=== PATIENT | female | born 1960 | race Caucasian/White ===

== ENCOUNTER 2017-02-21 13:24 | Inpatient (IN) | payer BC, MEDICARE ==
[~2017-02-21] VITALS: Ht 165.1 cm; Wt 91.3 kg
[~2017-02-21 13:24] MED LIST: ACET500T33 PO; ALPR0.5T PO; BUDE0.25 IH; BUDE3CAP15 PO; BUPR150T8 PO; BUPR300T3 PO; CLON0.5T3 PO; CLON1TAB3 PO; COLE1TAB2 PO; FAMO-63 PO; FERR325T58 PO; FLUO20CA8 PO; FURO-69 PO; GABA600T2 PO; LAMO25TA31 PO; LOPE2TAB27 PO; METO25TA9 PO; MIRT15TA3 PO; OMEP40CA5 PO; ONDA8TAB9 PO; POTA20TA12 PO; PRED20TA PO; SPIR25TA3 PO; SUCR1TAB29 PO; ZOLP10TA PO; ZOLP5TAB5 PO; [UNRECOGNIZED DRUG - CODE] PO
[2017-02-21 13:45] LABS: BASO % 0 % (0-3); EOS % 0 % (0-3); HEMOGLOBIN 14.7 g/dL (12.0-15.5); LYMPH # 0.9 x10^3/uL (1.0-4.8); LYMPH % 12 % (24-48); MEAN CORPUSCULAR HEMOGLOBIN 32 pg (25-35); MEAN CORPUSCULAR HGB CONC 35 g/dL (31-37); MEAN CORPUSCULAR VOLUME 92 fL (79-100); MONO % 4 % (0-9); NEUT % 83 % (31-73); PLATELET COUNT 236 x10^3/uL (140-400); RED BLOOD COUNT 4.57 x10^6/uL (3.50-5.40); RED CELL DISTRIBUTION WIDTH 12.9 % (11.5-14.5); WHITE BLOOD COUNT 7.4 x10^3/uL (4.0-11.0)
[2017-02-21] MEDS ORDERED: METOCLOPRAMIDE HCL 10 MG/2 ML VIAL. IV ONE (13:45)
--- NOTE | 2017-02-21 13:50 | EKG ---
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
[2017-02-21 13:57] LABS: CALCIUM 9.3 mg/dL (8.5-10.1); CREATININE 0.7 mg/dL (0.6-1.0); GFR 86.2; POTASSIUM 3.5 mmol/L (3.5-5.1)
[2017-02-21] MEDS ORDERED: MORPHINE SULFATE 4 MG/ML DISP.SYRIN. IV/SQ PRN (14:00)
[2017-02-21 14:02] LABS: ALBUMIN 4.2 g/dL (3.4-5.0); ALBUMIN/GLOBULIN RATIO 1.3 (1.0-1.7); TOTAL BILIRUBIN 0.2 mg/dL (0.2-1.0); TOTAL PROTEIN 7.4 g/dL (6.4-8.2)
[2017-02-21] MEDS ORDERED: IOHEXOL 300 MG/ML 75 ML VIAL IV ONE (14:15)
[2017-02-21] MEDS ORDERED: CONTRAST GIVEN MC PRN (14:15)
[2017-02-21] MEDS ORDERED: CYCL10TA2 PO (14:41)
[2017-02-21] MEDS ORDERED: BUDE10.22 IH (14:41)
[2017-02-21] MEDS ORDERED: LORA10TA68 PO (14:41)
[2017-02-21] MEDS ORDERED: CYCL15CA14 PO (14:42)
[2017-02-21] MEDS ORDERED: HYDR-971 PO (14:42)
[2017-02-21] MEDS ORDERED: LAMO100T5 PO (14:43)
[2017-02-21] MEDS ORDERED: FURO20TA3 PO (14:43)
[2017-02-21] MEDS ORDERED: METR250T PO (14:44)
[2017-02-21] MEDS ORDERED: GABA-586 PO (14:44)
[2017-02-21] MEDS ORDERED: METO25TA4 PO (14:44)
[2017-02-21] MEDS ORDERED: MELO-150 PO (14:44)
[2017-02-21] MEDS ORDERED: FLUO10CA13 PO (14:45)
[2017-02-21] MEDS ORDERED: MIRT15TA PO (14:45)
[2017-02-21 14:49] LABS: BILIRUBIN,URINE NEGATIVE (NEG); GLUCOSE,URINE NEGATIVE (NEG); NITRITE,URINE POSITIVE (NEG); PROTEIN,URINE NEGATIVE (NEG-TRACE); UROBILINOGEN,URINE 0.2 mg/dL (0.2 mg/dL)
[2017-02-21 14:59] LABS: BACTERIA,URINE MANY /HPF (0-FEW); SQUAMOUS EPITHELIAL CELL,UR FEW /LPF
--- NOTE | 2017-02-21 15:29 | RAD ---
Indication abdominal pain. Nausea vomiting diarrhea. Axial images of the abdomen and pelvis were obtained. 75 cc of Omnipaque 300 was administered intravenously. No oral contrast was administered. Note is made of a previous examination 11/16/2015. The lung bases are clear. There is a ventral abdominal wall hernia containing only fat and appearing uncomplicated. The liver and spleen appear unremarkable. There is a small hiatus hernia. Clips are noted in the gallbladder fossa. No pancreatic abnormality is seen. The adrenal glands and kidneys appear unremarkable. An acute finding within the abdomen is not seen. Occasional small diverticula are seen associated with the large bowel. Active inflammation is not seen. There is slight irregularity of the sigmoid colon. Mild inflammation at this level is not excluded. Similarly there is possible slight irregularity involving the right colon. Mild colitis is not entirely excluded and clinical correlation as to this possibility advised. Posttraumatic changes involving the right hemipelvis are noted. 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 There is mild anterior spondylolisthesis at L5-S1. IMPRESSION: Possible mild inflammatory changes involving the sigmoid colon and right colon. The finding is not certain. An additional acute finding is not suggested in the abdomen or pelvis.
[2017-02-21] MEDS ORDERED: ACETAMINOPHEN 325 MG TABLET. PO PRN ×2 (16:45)
[2017-02-21] MEDS ORDERED: MORPHINE SULFATE 4 MG/ML DISP.SYRIN. IV PRN (16:45)
[2017-02-21] MEDS ORDERED: hydrALAZINE 20 MG/ML VIAL. IVP PRN (16:45)
[2017-02-21] MEDS ORDERED: ONDANSETRON PF 4 MG/2 ML VIAL. IV PRN ×2 (16:45)
--- NOTE | 2017-02-21 16:53 | PDOC1 ---
History and Physical Date of Admission Date of Admission 02/21/17 Identification/Chief Complaint Chief Complaint n/v, diarrhea Problems: Source Source: Patient History of Present Illness History of Present Illness 56yo F, who has h/o copd, htn ,but not seen any PCP or on any meds for at least a year, comes for N/V abd pain for 2 days. She denies eating wrong food, no recent infection, or traveling. She vomited several times daily x2 ds yellow liquid, no abd pain.She has very loose yellow diarrhea many times a day x2 too. She denies fever, + chills, nocough, sob. She denies dysuria, frequency or urgency. CT showed possible mild colitis Past Medical History Cardiovascular: HTN CENTRAL NERVOUS SYSTEM: Seizure GI: GI bleed, Hemorrhoids, Other Heme/Onc: Anemia NOS, Iron deficiency Anemia, Other Hepatobiliary: No pertinent hx Psych: Anxiety, Depression Renal/: No pertinent hx Endocrine: No pertinent hx Past Surgical History Past Surgical History gastric sleeve Past Surgical History: Pacemaker, Cholecystectomy, Mastectomy, Other Family History Family History: Hypertension Social History Smoke: Quit ALCOHOL: rare Drugs: None Current Medications Current Medications Current Medications Medications (Trade) Dose Ordered Sig/Akil Start Time Stop Time Status Last Admin Dose Admin Ceftriaxone Sodium 1 gm/ Sodium Chloride 50 ml @ 100 mls/hr Q24H 02/22/17 16:00 Ceftriaxone Sodium 50 ml @ 100 mls/hr 1X ONCE 02/21/17 16:00 02/21/17 16:29 DC Info (Do NOT chart on this entry -- for MONITORING) 1 each PRN DAILY PRN 02/21/17 14:15 02/23/17 14:14 Iohexol (Omnipaque 300 Mg/ml) 75 ml 1X ONCE 02/21/17 14:15 02/21/17 14:16 DC 02/21/17 14:45 75 ML Metoclopramide HCl (Reglan) 10 mg 1X ONCE 02/21/17 13:45 02/21/17 13:46 DC 02/21/17 13:41 10 MG Metronidazole 100 ml @ 100 mls/hr 1X ONCE 02/21/17 16:15 02/21/17 17:14 Cancel Morphine Sulfate 4 mg PRN Q15MIN PRN 02/21/17 14:00 02/22/17 13:59 Allergies Allergies Allergies Coded Allergies Type Severity Reaction Last Updated Verified Penicillins Allergy Intermediate 11/26/15 Yes guaifenesin Allergy Intermediate 11/26/15 Yes meperidine Allergy Intermediate 11/26/15 Yes ROS Review of System CONSTITUTIONAL: No fever or chills EYES: No recent changes SKIN: No rash or itching CARDIOVASCULAR: No chest pain, syncope, palpitations, or edema RESPIRATORY: No SOB or cough GASTROINTESTINAL: No nausea, vomiting or abdominal pain NEUROLOGICAL: No headaches or weakness ENDOCRINE: No cold or heat intolerance GENITOURINARY: No urgency or frequency of urination MUSCULOSKELETAL: No back pain or joint pain LYMPHATICS: No enlarged lymph nodes PSYCHIATRIC: No anxiety or depression Physical Exam Physical Exam GEN.: No apparent distress. Alert and oriented. HEENT: Head is normocephalic, atraumatic NECK: Supple. LUNGS: Clear to auscultation. HEART: RRR, S1, S2 present. Peripheral pulses intact ABDOMEN: Soft, nontender. Positive bowel sounds. EXTREMITIES: Without any cyanosis. NEUROLOGIC: Normal speech, normal tone PSYCHIATRIC: Normal affect, normal mood. SKIN: No ulcerations Vitals Vitals Vital Signs Date Time Temp Pulse Resp B/P (MAP) Pulse Ox O2 Delivery O2 Flow Rate FiO2 02/21/17 13:27 97.7 65 18 154/111 (125) 99 Room Air 97.7 Labs Labs Laboratory Tests Test 02/21/17 13:30 02/21/17 14:35 White Blood Count 7.4 x10^3/uL (4.0-11.0) Red Blood Count 4.57 x10^6/uL (3.50-5.40) Hemoglobin 14.7 g/dL (12.0-15.5) Hematocrit 42.0 % (36.0-47.0) Mean Corpuscular Volume 92 fL (79-100) Mean Corpuscular Hemoglobin 32 pg (25-35) Mean Corpuscular Hemoglobin Concent 35 g/dL (31-37) Red Cell Distribution Width 12.9 % (11.5-14.5) Platelet Count 236 x10^3/uL (140-400) Neutrophils (%) (Auto) 83 % (31-73) Lymphocytes (%) (Auto) 12 % (24-48) Monocytes (%) (Auto) 4 % (0-9) Eosinophils (%) (Auto) 0 % (0-3) Basophils (%) (Auto) 0 % (0-3) Neutrophils # (Auto) 6.2 x10^3uL (1.8-7.7) Lymphocytes # (Auto) 0.9 x10^3/uL (1.0-4.8) Monocytes # (Auto) 0.3 x10^3/uL (0.0-1.1) Eosinophils # (Auto) 0.0 x10^3/uL (0.0-0.7) Basophils # (Auto) 0.0 x10^3/uL (0.0-0.2) Sodium Level 145 mmol/L (136-145) Potassium Level 3.5 mmol/L (3.5-5.1) Chloride Level 105 mmol/L (98-107) Carbon Dioxide Level 20 mmol/L (21-32) Anion Gap 20 (6-14) Blood Urea Nitrogen 13 mg/dL (7-20) Creatinine 0.7 mg/dL (0.6-1.0) Estimated GFR (Cockcroft-Gault) 86.2 BUN/Creatinine Ratio 19 (6-20) Glucose Level 138 mg/dL (70-99) Calcium Level 9.3 mg/dL (8.5-10.1) Total Bilirubin 0.2 mg/dL (0.2-1.0) Aspartate Amino Transf (AST/SGOT) 23 U/L (15-37) Alanine Aminotransferase (ALT/SGPT) 23 U/L (14-59) Alkaline Phosphatase 96 U/L (46-116) Troponin I Quantitative < 0.017 ng/mL (0.000-0.055) Total Protein 7.4 g/dL (6.4-8.2) Albumin 4.2 g/dL (3.4-5.0) Albumin/Globulin Ratio 1.3 (1.0-1.7) Lipase 109 U/L (73-393) Urine Collection Type Unknown Urine Color Yellow Urine Clarity Clear Urine pH 6.0 Urine Specific [place] 1.025 Urine Protein Negative mg/dL (NEG-TRACE) Urine Glucose (UA) Negative mg/dL (NEG) Urine Ketones (Stick) 15 mg/dL (NEG) Urine Blood Small (NEG) Urine Nitrite Positive (NEG) Urine Bilirubin Negative (NEG) Urine Urobilinogen Dipstick 0.2 mg/dL (0.2 mg/dL) Urine Leukocyte Esterase Small (NEG) Urine RBC 1-2 /HPF (0-2) Urine WBC 5-10 /HPF (0-4) Urine Squamous Epithelial Cells Few /LPF Urine Bacteria Many /HPF (0-FEW) Urine Mucus Slight /LPF Laboratory Tests Test 02/21/17 13:30 02/21/17 14:35 White Blood Count 7.4 x10^3/uL (4.0-11.0) Red Blood Count 4.57 x10^6/uL (3.50-5.40) Hemoglobin 14.7 g/dL (12.0-15.5) Hematocrit 42.0 % (36.0-47.0) Mean Corpuscular Volume 92 fL (79-100) Mean Corpuscular Hemoglobin 32 pg (25-35) Mean Corpuscular Hemoglobin Concent 35 g/dL (31-37) Red Cell Distribution Width 12.9 % (11.5-14.5) Platelet Count 236 x10^3/uL (140-400) Neutrophils (%) (Auto) 83 % (31-73) Lymphocytes (%) (Auto) 12 % (24-48) Monocytes (%) (Auto) 4 % (0-9) Eosinophils (%) (Auto) 0 % (0-3) Basophils (%) (Auto) 0 % (0-3) Neutrophils # (Auto) 6.2 x10^3uL (1.8-7.7) Lymphocytes # (Auto) 0.9 x10^3/uL (1.0-4.8) Monocytes # (Auto) 0.3 x10^3/uL (0.0-1.1) Eosinophils # (Auto) 0.0 x10^3/uL (0.0-0.7) Basophils # (Auto) 0.0 x10^3/uL (0.0-0.2) Sodium Level 145 mmol/L (136-145) Potassium Level 3.5 mmol/L (3.5-5.1) Chloride Level 105 mmol/L (98-107) Carbon Dioxide Level 20 mmol/L (21-32) Anion Gap 20 (6-14) Blood Urea Nitrogen 13 mg/dL (7-20) Creatinine 0.7 mg/dL (0.6-1.0) Estimated GFR (Cockcroft-Gault) 86.2 BUN/Creatinine Ratio 19 (6-20) Glucose Level 138 mg/dL (70-99) Calcium Level 9.3 mg/dL (8.5-10.1) Total Bilirubin 0.2 mg/dL (0.2-1.0) Aspartate Amino Transf (AST/SGOT) 23 U/L (15-37) Alanine Aminotransferase (ALT/SGPT) 23 U/L (14-59) Alkaline Phosphatase 96 U/L (46-116) Troponin I Quantitative < 0.017 ng/mL (0.000-0.055) Total Protein 7.4 g/dL (6.4-8.2) Albumin 4.2 g/dL (3.4-5.0) Albumin/Globulin Ratio 1.3 (1.0-1.7) Lipase 109 U/L (73-393) Urine Collection Type Unknown Urine Color Yellow Urine Clarity Clear Urine pH 6.0 Urine Specific [place] 1.025 Urine Protein Negative mg/dL (NEG-TRACE) Urine Glucose (UA) Negative mg/dL (NEG) Urine Ketones (Stick) 15 mg/dL (NEG) Urine Blood Small (NEG) Urine Nitrite Positive (NEG) Urine Bilirubin Negative (NEG) Urine Urobilinogen Dipstick 0.2 mg/dL (0.2 mg/dL) Urine Leukocyte Esterase Small (NEG) Urine RBC 1-2 /HPF (0-2) Urine WBC 5-10 /HPF (0-4) Urine Squamous Epithelial Cells Few /LPF Urine Bacteria Many /HPF (0-FEW) Urine Mucus Slight /LPF VTE Prophylaxis Ordered VTE Prophylaxis Devices: Yes VTE Pharmacological Prophylaxi: Yes Assessment/Plan Assessment/Plan 1. N/V, diarrhea, 2/2 gastroenteritis likely, likely 2/2 viral infection 2. HTN urgency 3. h/o gastric sleeve sx 4. h/o GIB 5. morbid obesity plan: gi consult doubt pt need abx, consider dc soon clear liquid ivf check cdiff may add po meds for htn labs tmr dvt ppx, gi ppx LEENA FRANCISCO MD February 21, 2017 16:53
[2017-02-21] MEDS: VANCOMYCIN 250 MG/5 ML ORAL SOLUTION. PO SCH ×3 (17:00→21:11)
[2017-02-21] MEDS ORDERED: IV NORMAL SALINE 1000ML BAG 1,000 ML IV ONE (17:00)
[2017-02-21] MEDS ORDERED: ALBUTEROL SULFATE 2.5 MG/3 ML NEBU. NEB PRN (17:00)
[2017-02-21] MEDS: IV NORMAL SALINE 1000ML BAG 1,000 ML IV SCH ×2 (17:00→18:32)
[2017-02-21] MEDS ORDERED: traMADol 50 MG TABLET PO PRN (17:00)
--- NOTE | 2017-02-21 17:39 | ED.ADGEN ---
Past Medical History Past Medical History: Anemia, Arthritis, CHF, Hypertension, Seizure Additional Past Medical Histor: diarrhea; "Carcinoma of back" Past Surgical History: Cholecystectomy, Other Additional Past Surgical Histo: gastric sleeve sx Alcohol Use: None Drug Use: None Adult General Chief Complaint Chief Complaint: NAUSEA/VOMITING/DIARRHA HPI HPI Patient is a 56 year old and, history of CHF, hypertension, seizure disorder, status post gastric bypass surgery with multiple complications, who presents emergency department complaining of abdominal pain, nausea, vomiting, and diarrhea. Patient initially denied diarrhea, when she arrived via EMS, was complaining mainly of vomiting, request several doses of antiemetics to stymied symptoms. Patient denies any fevers, any chills, denies any injuries, any weakness emesis or tingling. States pain is located throughout her abdomen, initially stated that her last bowel was 3 days ago and was normal. However on requestioning she states she is experiencing diarrhea. Review of Systems Review of Systems Constitutional: Denies fever or chills. [] Eyes: Denies change in visual acuity. [] HENT: Denies nasal congestion or sore throat. [] Respiratory: Denies cough or shortness of breath. [] Cardiovascular: Denies chest pain or edema. [] GI: Abdominal pain is diffuse, cramping, associated nausea, vomiting, diarrhea. No bloody stools or bloody emesis. : Denies dysuria. [] Musculoskeletal: Denies back pain or joint pain. [] Integument: Denies rash. [] Neurologic: Denies headache, focal weakness or sensory changes. [] Endocrine: Denies polyuria or polydipsia. [] Lymphatic: Denies swollen glands. [] Psychiatric: Denies depression or anxiety. [] Current Medications Current Medications Current Medications Medications (Trade) Dose Ordered Sig/Akil Start Time Stop Time Status Last Admin Dose Admin Info (Do NOT chart on this entry -- for MONITORING) 1 each PRN DAILY PRN 02/21/17 14:15 02/23/17 14:14 Iohexol (Omnipaque 300 Mg/ml) 75 ml 1X ONCE 02/21/17 14:15 02/21/17 14:16 DC 02/21/17 14:45 75 ML Metoclopramide HCl (Reglan) 10 mg 1X ONCE 02/21/17 13:45 02/21/17 13:46 DC 02/21/17 13:41 10 MG Morphine Sulfate 4 mg PRN Q15MIN PRN 02/21/17 14:00 02/22/17 13:59 Allergies Allergies Allergies Coded Allergies Type Severity Reaction Last Updated Verified Penicillins Allergy Intermediate 11/26/15 Yes guaifenesin Allergy Intermediate 11/26/15 Yes meperidine Allergy Intermediate 11/26/15 Yes Physical Exam Physical Exam Constitutional: Well developed, well nourished, acutely uncomfortable, chronically ill in appearance. HENT: Normocephalic, atraumatic, bilateral external ears normal, oropharynx moist, no oral exudates, nose normal. [] Eyes: PERRLA, EOMI, conjunctiva normal, no discharge. [] Neck: Normal range of motion, no tenderness, supple, no stridor. [] Cardiovascular:Heart rate regular rhythm, no murmur , S1, S2, rubs or gallops. [ ] Lungs & Thorax: Bilateral breath sounds clear to auscultation , no wheezing, rhonchi, rales. No chest or crepitus or tenderness. [] Abdomen: Bowel sounds hyperactive, soft, tenderness to palpation, throughout the mid abdomen, no rebound or rigidity, no guarding, no masses, no pulsatile masses. [] Skin: Warm, dry, no erythema, no rash. [] Back: No tenderness, no CVA tenderness. [] Extremities: No tenderness, no cyanosis, no clubbing, ROM intact, no edema. [] Neurologic: Alert and oriented X 3, normal motor function, normal sensory function, no focal deficits noted. [] Psychologic: Affect normal, judgement normal, mood normal. [] Current Patient Data Vital Signs Vital Signs Date Time Temp Pulse Resp B/P (MAP) Pulse Ox O2 Delivery O2 Flow Rate FiO2 02/21/17 15:00 70 18 132/71 (91) 100 Room Air 02/21/17 13:27 97.7 97.7 Lab Values Laboratory Tests Test 02/21/17 13:30 02/21/17 14:35 White Blood Count 7.4 x10^3/uL (4.0-11.0) Red Blood Count 4.57 x10^6/uL (3.50-5.40) Hemoglobin 14.7 g/dL (12.0-15.5) Hematocrit 42.0 % (36.0-47.0) Mean Corpuscular Volume 92 fL (79-100) Mean Corpuscular Hemoglobin 32 pg (25-35) Mean Corpuscular Hemoglobin Concent 35 g/dL (31-37) Red Cell Distribution Width 12.9 % (11.5-14.5) Platelet Count 236 x10^3/uL (140-400) Neutrophils (%) (Auto) 83 % (31-73) H Lymphocytes (%) (Auto) 12 % (24-48) L Monocytes (%) (Auto) 4 % (0-9) Eosinophils (%) (Auto) 0 % (0-3) Basophils (%) (Auto) 0 % (0-3) Neutrophils # (Auto) 6.2 x10^3uL (1.8-7.7) Lymphocytes # (Auto) 0.9 x10^3/uL (1.0-4.8) L Monocytes # (Auto) 0.3 x10^3/uL (0.0-1.1) Eosinophils # (Auto) 0.0 x10^3/uL (0.0-0.7) Basophils # (Auto) 0.0 x10^3/uL (0.0-0.2) Sodium Level 145 mmol/L (136-145) Potassium Level 3.5 mmol/L (3.5-5.1) Chloride Level 105 mmol/L (98-107) Carbon Dioxide Level 20 mmol/L (21-32) L Anion Gap 20 (6-14) H Blood Urea Nitrogen 13 mg/dL (7-20) Creatinine 0.7 mg/dL (0.6-1.0) Estimated GFR (Cockcroft-Gault) 86.2 BUN/Creatinine Ratio 19 (6-20) Glucose Level 138 mg/dL (70-99) H Calcium Level 9.3 mg/dL (8.5-10.1) Total Bilirubin 0.2 mg/dL (0.2-1.0) Aspartate Amino Transferase (AST) 23 U/L (15-37) Alanine Aminotransferase (ALT) 23 U/L (14-59) Alkaline Phosphatase 96 U/L (46-116) Troponin I Quantitative < 0.017 ng/mL (0.000-0.055) Total Protein 7.4 g/dL (6.4-8.2) Albumin 4.2 g/dL (3.4-5.0) Albumin/Globulin Ratio 1.3 (1.0-1.7) Lipase 109 U/L (73-393) Urine Collection Type Unknown Urine Color Yellow Urine Clarity Clear Urine pH 6.0 Urine Specific [place] 1.025 Urine Protein Negative mg/dL (NEG-TRACE) Urine Glucose (UA) Negative mg/dL (NEG) Urine Ketones (Stick) 15 mg/dL (NEG) Urine Blood Small (NEG) Urine Nitrite Positive (NEG) Urine Bilirubin Negative (NEG) Urine Urobilinogen Dipstick 0.2 mg/dL (0.2 mg/dL) Urine Leukocyte Esterase Small (NEG) Urine RBC 1-2 /HPF (0-2) Urine WBC 5-10 /HPF (0-4) Urine Squamous Epithelial Cells Few /LPF Urine Bacteria Many /HPF (0-FEW) Urine Mucus Slight /LPF Laboratory Tests 02/21/17 13:30 Laboratory Tests 02/21/17 13:30 EKG EKG EC: Rhythm is paced, 81 beats minute, QTC of 499, QRS of 170, limited interpretation secondary to paced rhythm, no ST elevations or depressions, does not meet STEMI criteria. As interpreted by me. [] Radiology/Procedures Radiology/Procedures [][facility] [address] [place], [place] [id number] IMAGING REPORT Signed PATIENT: WILY CALDERON ACCOUNT: [id number] : 1960 LOCATION: ER AGE: 56 SEX: F EXAM STATUS: REG ER ORD. PHYSICIAN: MINA FRIEND DO REASON: abd pain/n/v/d PROCEDURE: CT ABD PELV W/ IV CONTRST ONLY Indication abdominal pain. Nausea vomiting diarrhea. Axial images of the abdomen and pelvis were obtained. 75 cc of Omnipaque 300 was administered intravenously. No oral contrast was administered. Note is made of a previous examination 11/16/2015. The lung bases are clear. There is a ventral abdominal wall hernia containing only fat and appearing uncomplicated. The liver and spleen appear unremarkable. There is a small hiatus hernia. Clips are noted in the gallbladder fossa. No pancreatic abnormality is seen. The adrenal glands and kidneys appear unremarkable. An acute finding within the abdomen is not seen. Occasional small diverticula are seen associated with the large bowel. Active inflammation is not seen. There is slight irregularity of the sigmoid colon. Mild inflammation at this level is not excluded. Similarly there is possible slight irregularity involving the right colon. Mild colitis is not entirely excluded and clinical correlation as to this possibility advised. Posttraumatic changes involving the right hemipelvis are noted. 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 There is mild anterior spondylolisthesis at L5-S1. IMPRESSION: Possible mild inflammatory changes involving the sigmoid colon and right colon. The finding is not certain. An additional acute finding is not suggested in the abdomen or pelvis. DICTATED and SIGNED BY: PACO ZAYAS MD DATE: 02/21/17 1517 CC: MINA FRIEND DO; MEERA IZAGUIRRE MD ~ Course & Med Decision Making Course & Med Decision Making Pertinent Labs and Imaging studies reviewed. (See chart for details) As stated patient initially denied diarrhea, and any history of antibiotic use or C. difficile, however additional information was obtained from Dr. 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 difficile colitis. Therefore precautions were placed, patient noted to have evidence of colitis on CT, along with urinary tract infection, was initiated on ceftriaxone, dried is all, and oral vancomycin, consultation was placed for both Dr. Zapata of GI, and Dr. Turner of infectious disease for management. Findings as above discussed with Dr. Lindsey of internal medicine, patient accepted to her service as a full admission to the medical telemetry floor with consultation and management as stated, bridge orders entered per discussion. Patient resting comfortably, with resolution of her nausea and improved pain management, awaiting transfer to the floor. Dragon Disclaimer Dragon Disclaimer This electronic medical record was generated, in whole or in part, using a voice recognition dictation system. Departure Impression: Primary Impression: Colitis Additional Impressions: Abdominal pain UTI (urinary tract infection) Diarrhea Disposition: ADMITTED INPATIENT Admitting Physician: Cata Lindsey Condition: IMPROVED Problem Qualifiers MINA FRIEND DO February 21, 2017 17:39
[2017-02-21 19:00] VITALS: BP 139/70
--- NOTE | 2017-02-21 19:29 | ACF ---
Admission Forms Criteria GASTROENTERITIS Clinical Indications for Admission to Inpatient Care (Place 'X' for any and all applicable criteria): Admission is indicated for ANY ONE of the following (1)(2)(3)(4)(5)(6): [X]I. Inpatient admission required rather than observation care (Also use Gastroenteritis: Observation Care as appropriate) because of ANY ONE of the following: [X]a) Vomiting that is severe or persistent [ ]b) Dehydration that is severe or persistent [ ]c) Hemodynamic instability that is severe or persistent [ ]d) Signs of intestinal obstruction or peritonitis [A] [ ]e) Hemolytic uremic syndrome is diagnosed. [ ]f) Absent bowel sounds with complete ileus (2) [ ]g) IV fluid to replace significant ongoing losses (greater than 3 L/m2 per day) [ ]h) Parenteral nutrition regimen that must be implemented on inpatient basis [ ]i) Other condition, treatment or monitoring requiring inpatient admission [ ]II. Suspected severe infection (eg, presence of high fever, severe or bloody diarrhea)(7)(8) [ ]III. Severe abdominal tenderness [ ]IV. Toxic megacolon Extended stay beyond goal length of stay may be needed for(4)(5)(6)(18) [ ]a) Persistent vital sign changes, severe electrolyte imbalance, or ongoing fluid losses that require continued hospitalization [ ]b) Other diagnosed cause for gastrointestinal symptoms (eg, intestinal obstruction,inflammatory bowel disease) that requires continued hospitalization [ ]c) Severe Clostridium difficile infection(8)(22) [ ]d) Bacterial dysentery(7) [ ]e) Radiation gastroenteritis [ ]f) Endoscopy with lesion [ ]g) Clinically significant medical comorbidities that require inpatient care [ ]h) Older patients (65 years or older) [ ]i) Hemolytic uremic syndrome (20) [ ]j) Toxic megacolon The original [facility] content created by [employer] has been revised. The portions of the content which have been revised are identified through the use of italic text or in bold, and [facility] has neither reviewed nor approved the modified material. All other unmodified content is copyright [facility]. Please see references footnoted in the original [facility] edition 2016 Admission Criteria Met?: Yes MARCELLA BOYD February 21, 2017 19:29
[2017-02-21] MEDS ORDERED: ZOLPIDEM 5 MG TABLET. PO PRN (20:15)
[2017-02-21 23:00] VITALS: BP 149/62
[2017-02-22 03:00] VITALS: BP 150/81
[2017-02-22] MEDS: IV NORMAL SALINE 1000ML BAG 1,000 ML IV SCH (05:28)
[2017-02-22 06:06] LABS: BASO % 0 % (0-3); EOS % 1 % (0-3); HEMATOCRIT 38.8 % (36.0-47.0); HEMOGLOBIN 12.9 g/dL (12.0-15.5); LYMPH # 1.9 x10^3/uL (1.0-4.8); LYMPH % 19 % (24-48); MEAN CORPUSCULAR HEMOGLOBIN 31 pg (25-35); MEAN CORPUSCULAR HGB CONC 33 g/dL (31-37); MEAN CORPUSCULAR VOLUME 94 fL (79-100); MONO % 10 % (0-9); NEUT % 71 % (31-73); PLATELET COUNT 214 x10^3/uL (140-400); RED BLOOD COUNT 4.13 x10^6/uL (3.50-5.40); RED CELL DISTRIBUTION WIDTH 12.9 % (11.5-14.5); WHITE BLOOD COUNT 10.4 x10^3/uL (4.0-11.0)
[2017-02-22 06:20] LABS: CALCIUM 8.5 mg/dL (8.5-10.1); CREATININE 0.7 mg/dL (0.6-1.0); GFR 86.2; POTASSIUM 3.2 mmol/L (3.5-5.1)
[2017-02-22 07:00] VITALS: BP 135/54
[2017-02-22] MEDS ORDERED: PANTOPRAZOLE 40 MG TABLET.DR. PO SCH (07:30)
[2017-02-22] MEDS: VANCOMYCIN 250 MG/5 ML ORAL SOLUTION. PO SCH ×2 (08:05→14:00)
--- NOTE | 2017-02-22 08:41 | PDOC ---
Infectious Disease Note Vital Sign Vital Signs Vital Signs Date Time Temp Pulse Resp B/P (MAP) Pulse Ox O2 Delivery O2 Flow Rate FiO2 02/22/17 03:00 98.0 78 18 150/81 (104) 95 Room Air 98.0 Labs Lab Laboratory Tests Test 02/21/17 13:30 02/21/17 14:35 02/22/17 05:48 White Blood Count 7.4 x10^3/uL (4.0-11.0) 10.4 x10^3/uL (4.0-11.0) Red Blood Count 4.57 x10^6/uL (3.50-5.40) 4.13 x10^6/uL (3.50-5.40) Hemoglobin 14.7 g/dL (12.0-15.5) 12.9 g/dL (12.0-15.5) Hematocrit 42.0 % (36.0-47.0) 38.8 % (36.0-47.0) Mean Corpuscular Volume 92 fL (79-100) 94 fL (79-100) Mean Corpuscular Hemoglobin 32 pg (25-35) 31 pg (25-35) Mean Corpuscular Hemoglobin Concent 35 g/dL (31-37) 33 g/dL (31-37) Red Cell Distribution Width 12.9 % (11.5-14.5) 12.9 % (11.5-14.5) Platelet Count 236 x10^3/uL (140-400) 214 x10^3/uL (140-400) Neutrophils (%) (Auto) 83 % (31-73) 71 % (31-73) Lymphocytes (%) (Auto) 12 % (24-48) 19 % (24-48) Monocytes (%) (Auto) 4 % (0-9) 10 % (0-9) Eosinophils (%) (Auto) 0 % (0-3) 1 % (0-3) Basophils (%) (Auto) 0 % (0-3) 0 % (0-3) Neutrophils # (Auto) 6.2 x10^3uL (1.8-7.7) 7.4 x10^3uL (1.8-7.7) Lymphocytes # (Auto) 0.9 x10^3/uL (1.0-4.8) 1.9 x10^3/uL (1.0-4.8) Monocytes # (Auto) 0.3 x10^3/uL (0.0-1.1) 1.0 x10^3/uL (0.0-1.1) Eosinophils # (Auto) 0.0 x10^3/uL (0.0-0.7) 0.0 x10^3/uL (0.0-0.7) Basophils # (Auto) 0.0 x10^3/uL (0.0-0.2) 0.0 x10^3/uL (0.0-0.2) Sodium Level 145 mmol/L (136-145) 143 mmol/L (136-145) Potassium Level 3.5 mmol/L (3.5-5.1) 3.2 mmol/L (3.5-5.1) Chloride Level 105 mmol/L (98-107) 108 mmol/L (98-107) Carbon Dioxide Level 20 mmol/L (21-32) 21 mmol/L (21-32) Anion Gap 20 (6-14) 14 (6-14) Blood Urea Nitrogen 13 mg/dL (7-20) 14 mg/dL (7-20) Creatinine 0.7 mg/dL (0.6-1.0) 0.7 mg/dL (0.6-1.0) Estimated GFR (Cockcroft-Gault) 86.2 86.2 BUN/Creatinine Ratio 19 (6-20) Glucose Level 138 mg/dL (70-99) 107 mg/dL (70-99) Calcium Level 9.3 mg/dL (8.5-10.1) 8.5 mg/dL (8.5-10.1) Total Bilirubin 0.2 mg/dL (0.2-1.0) Aspartate Amino Transf (AST/SGOT) 23 U/L (15-37) Alanine Aminotransferase (ALT/SGPT) 23 U/L (14-59) Alkaline Phosphatase 96 U/L (46-116) Troponin I Quantitative < 0.017 ng/mL (0.000-0.055) Total Protein 7.4 g/dL (6.4-8.2) Albumin 4.2 g/dL (3.4-5.0) Albumin/Globulin Ratio 1.3 (1.0-1.7) Lipase 109 U/L (73-393) Urine Collection Type Unknown Urine Color Yellow Urine Clarity Clear Urine pH 6.0 Urine Specific [place] 1.025 Urine Protein Negative mg/dL (NEG-TRACE) Urine Glucose (UA) Negative mg/dL (NEG) Urine Ketones (Stick) 15 mg/dL (NEG) Urine Blood Small (NEG) Urine Nitrite Positive (NEG) Urine Bilirubin Negative (NEG) Urine Urobilinogen Dipstick 0.2 mg/dL (0.2 mg/dL) Urine Leukocyte Esterase Small (NEG) Urine RBC 1-2 /HPF (0-2) Urine WBC 5-10 /HPF (0-4) Urine Squamous Epithelial Cells Few /LPF Urine Bacteria Many /HPF (0-FEW) Urine Mucus Slight /LPF Objective Assessment N/V/ Diarrhea, rule out c diff ? Gastroenteritis H/O Gastric sleeve surgery Plan Plan of Care rocephine and flagyl supportive care stool for c diff SON JEFFRIES MD February 22, 2017 08:41
--- NOTE | 2017-02-22 09:41 | PDOC ---
PROGRESS NOTES Chief Complaint Chief Complaint N/V, abd pain History of Present Illness History of Present Illness Pt was lying in bed in NAD Reports feeling better but would like her Ambien started Vitals Vitals Vital Signs Date Time Temp Pulse Resp B/P (MAP) Pulse Ox O2 Delivery O2 Flow Rate FiO2 02/22/17 08:39 Room Air 02/22/17 07:00 98.9 81 18 135/54 (81) 93 98.9 Physical Exam General: Alert, Oriented X3, No acute distress Heart: Regular rate, No murmurs Lungs: Wheezing Abdomen: Normal bowel sounds, Soft, No tenderness Extremities: No clubbing, No cyanosis, No edema Skin: No rashes, No significant lesion Labs LABS Laboratory Tests Test 02/21/17 13:30 02/21/17 14:35 02/22/17 05:48 White Blood Count 7.4 x10^3/uL (4.0-11.0) 10.4 x10^3/uL (4.0-11.0) Red Blood Count 4.57 x10^6/uL (3.50-5.40) 4.13 x10^6/uL (3.50-5.40) Hemoglobin 14.7 g/dL (12.0-15.5) 12.9 g/dL (12.0-15.5) Hematocrit 42.0 % (36.0-47.0) 38.8 % (36.0-47.0) Mean Corpuscular Volume 92 fL (79-100) 94 fL (79-100) Mean Corpuscular Hemoglobin 32 pg (25-35) 31 pg (25-35) Mean Corpuscular Hemoglobin Concent 35 g/dL (31-37) 33 g/dL (31-37) Red Cell Distribution Width 12.9 % (11.5-14.5) 12.9 % (11.5-14.5) Platelet Count 236 x10^3/uL (140-400) 214 x10^3/uL (140-400) Neutrophils (%) (Auto) 83 % (31-73) 71 % (31-73) Lymphocytes (%) (Auto) 12 % (24-48) 19 % (24-48) Monocytes (%) (Auto) 4 % (0-9) 10 % (0-9) Eosinophils (%) (Auto) 0 % (0-3) 1 % (0-3) Basophils (%) (Auto) 0 % (0-3) 0 % (0-3) Neutrophils # (Auto) 6.2 x10^3uL (1.8-7.7) 7.4 x10^3uL (1.8-7.7) Lymphocytes # (Auto) 0.9 x10^3/uL (1.0-4.8) 1.9 x10^3/uL (1.0-4.8) Monocytes # (Auto) 0.3 x10^3/uL (0.0-1.1) 1.0 x10^3/uL (0.0-1.1) Eosinophils # (Auto) 0.0 x10^3/uL (0.0-0.7) 0.0 x10^3/uL (0.0-0.7) Basophils # (Auto) 0.0 x10^3/uL (0.0-0.2) 0.0 x10^3/uL (0.0-0.2) Sodium Level 145 mmol/L (136-145) 143 mmol/L (136-145) Potassium Level 3.5 mmol/L (3.5-5.1) 3.2 mmol/L (3.5-5.1) Chloride Level 105 mmol/L (98-107) 108 mmol/L (98-107) Carbon Dioxide Level 20 mmol/L (21-32) 21 mmol/L (21-32) Anion Gap 20 (6-14) 14 (6-14) Blood Urea Nitrogen 13 mg/dL (7-20) 14 mg/dL (7-20) Creatinine 0.7 mg/dL (0.6-1.0) 0.7 mg/dL (0.6-1.0) Estimated GFR (Cockcroft-Gault) 86.2 86.2 BUN/Creatinine Ratio 19 (6-20) Glucose Level 138 mg/dL (70-99) 107 mg/dL (70-99) Calcium Level 9.3 mg/dL (8.5-10.1) 8.5 mg/dL (8.5-10.1) Total Bilirubin 0.2 mg/dL (0.2-1.0) Aspartate Amino Transf (AST/SGOT) 23 U/L (15-37) Alanine Aminotransferase (ALT/SGPT) 23 U/L (14-59) Alkaline Phosphatase 96 U/L (46-116) Troponin I Quantitative < 0.017 ng/mL (0.000-0.055) Total Protein 7.4 g/dL (6.4-8.2) Albumin 4.2 g/dL (3.4-5.0) Albumin/Globulin Ratio 1.3 (1.0-1.7) Lipase 109 U/L (73-393) Urine Collection Type Unknown Urine Color Yellow Urine Clarity Clear Urine pH 6.0 Urine Specific [place] 1.025 Urine Protein Negative mg/dL (NEG-TRACE) Urine Glucose (UA) Negative mg/dL (NEG) Urine Ketones (Stick) 15 mg/dL (NEG) Urine Blood Small (NEG) Urine Nitrite Positive (NEG) Urine Bilirubin Negative (NEG) Urine Urobilinogen Dipstick 0.2 mg/dL (0.2 mg/dL) Urine Leukocyte Esterase Small (NEG) Urine RBC 1-2 /HPF (0-2) Urine WBC 5-10 /HPF (0-4) Urine Squamous Epithelial Cells Few /LPF Urine Bacteria Many /HPF (0-FEW) Urine Mucus Slight /LPF Review of Systems Review of Systems Denies chest pain Denies SOA Assessment and Plan Assessmemt and Plan Problems Medical Problems: (1) Abdominal pain Status: Acute (2) Diarrhea Status: Acute (3) UTI (urinary tract infection) Status: Acute Assessment: 1. N/V, diarrhea, 2/2 gastroenteritis likely, likely 2/2 viral infection 2. UTI 3. HTN urgency 4. h/o gastric sleeve sx 5. h/o GIB 6. morbid obesity 7. Possible COPD Plan: Appreciate ID input - check stool for C. diff, start Rocephin, Flagyl Await GI consult Await C. diff results Continue home meds Check labs in am PT/OT DVT/GI prophylaxis Problems: Comment Review of Relevant I have reviewed the following items danny (where applicable) has been applied. Labs Laboratory Tests Test 02/21/17 13:30 02/21/17 14:35 02/22/17 05:48 White Blood Count 7.4 x10^3/uL (4.0-11.0) 10.4 x10^3/uL (4.0-11.0) Red Blood Count 4.57 x10^6/uL (3.50-5.40) 4.13 x10^6/uL (3.50-5.40) Hemoglobin 14.7 g/dL (12.0-15.5) 12.9 g/dL (12.0-15.5) Hematocrit 42.0 % (36.0-47.0) 38.8 % (36.0-47.0) Mean Corpuscular Volume 92 fL (79-100) 94 fL (79-100) Mean Corpuscular Hemoglobin 32 pg (25-35) 31 pg (25-35) Mean Corpuscular Hemoglobin Concent 35 g/dL (31-37) 33 g/dL (31-37) Red Cell Distribution Width 12.9 % (11.5-14.5) 12.9 % (11.5-14.5) Platelet Count 236 x10^3/uL (140-400) 214 x10^3/uL (140-400) Neutrophils (%) (Auto) 83 % (31-73) 71 % (31-73) Lymphocytes (%) (Auto) 12 % (24-48) 19 % (24-48) Monocytes (%) (Auto) 4 % (0-9) 10 % (0-9) Eosinophils (%) (Auto) 0 % (0-3) 1 % (0-3) Basophils (%) (Auto) 0 % (0-3) 0 % (0-3) Neutrophils # (Auto) 6.2 x10^3uL (1.8-7.7) 7.4 x10^3uL (1.8-7.7) Lymphocytes # (Auto) 0.9 x10^3/uL (1.0-4.8) 1.9 x10^3/uL (1.0-4.8) Monocytes # (Auto) 0.3 x10^3/uL (0.0-1.1) 1.0 x10^3/uL (0.0-1.1) Eosinophils # (Auto) 0.0 x10^3/uL (0.0-0.7) 0.0 x10^3/uL (0.0-0.7) Basophils # (Auto) 0.0 x10^3/uL (0.0-0.2) 0.0 x10^3/uL (0.0-0.2) Sodium Level 145 mmol/L (136-145) 143 mmol/L (136-145) Potassium Level 3.5 mmol/L (3.5-5.1) 3.2 mmol/L (3.5-5.1) Chloride Level 105 mmol/L (98-107) 108 mmol/L (98-107) Carbon Dioxide Level 20 mmol/L (21-32) 21 mmol/L (21-32) Anion Gap 20 (6-14) 14 (6-14) Blood Urea Nitrogen 13 mg/dL (7-20) 14 mg/dL (7-20) Creatinine 0.7 mg/dL (0.6-1.0) 0.7 mg/dL (0.6-1.0) Estimated GFR (Cockcroft-Gault) 86.2 86.2 BUN/Creatinine Ratio 19 (6-20) Glucose Level 138 mg/dL (70-99) 107 mg/dL (70-99) Calcium Level 9.3 mg/dL (8.5-10.1) 8.5 mg/dL (8.5-10.1) Total Bilirubin 0.2 mg/dL (0.2-1.0) Aspartate Amino Transf (AST/SGOT) 23 U/L (15-37) Alanine Aminotransferase (ALT/SGPT) 23 U/L (14-59) Alkaline Phosphatase 96 U/L (46-116) Troponin I Quantitative < 0.017 ng/mL (0.000-0.055) Total Protein 7.4 g/dL (6.4-8.2) Albumin 4.2 g/dL (3.4-5.0) Albumin/Globulin Ratio 1.3 (1.0-1.7) Lipase 109 U/L (73-393) Urine Collection Type Unknown Urine Color Yellow Urine Clarity Clear Urine pH 6.0 Urine Specific [place] 1.025 Urine Protein Negative mg/dL (NEG-TRACE) Urine Glucose (UA) Negative mg/dL (NEG) Urine Ketones (Stick) 15 mg/dL (NEG) Urine Blood Small (NEG) Urine Nitrite Positive (NEG) Urine Bilirubin Negative (NEG) Urine Urobilinogen Dipstick 0.2 mg/dL (0.2 mg/dL) Urine Leukocyte Esterase Small (NEG) Urine RBC 1-2 /HPF (0-2) Urine WBC 5-10 /HPF (0-4) Urine Squamous Epithelial Cells Few /LPF Urine Bacteria Many /HPF (0-FEW) Urine Mucus Slight /LPF Laboratory Tests Test 02/21/17 13:30 02/21/17 14:35 02/22/17 05:48 White Blood Count 7.4 x10^3/uL (4.0-11.0) 10.4 x10^3/uL (4.0-11.0) Red Blood Count 4.57 x10^6/uL (3.50-5.40) 4.13 x10^6/uL (3.50-5.40) Hemoglobin 14.7 g/dL (12.0-15.5) 12.9 g/dL (12.0-15.5) Hematocrit 42.0 % (36.0-47.0) 38.8 % (36.0-47.0) Mean Corpuscular Volume 92 fL (79-100) 94 fL (79-100) Mean Corpuscular Hemoglobin 32 pg (25-35) 31 pg (25-35) Mean Corpuscular Hemoglobin Concent 35 g/dL (31-37) 33 g/dL (31-37) Red Cell Distribution Width 12.9 % (11.5-14.5) 12.9 % (11.5-14.5) Platelet Count 236 x10^3/uL (140-400) 214 x10^3/uL (140-400) Neutrophils (%) (Auto) 83 % (31-73) 71 % (31-73) Lymphocytes (%) (Auto) 12 % (24-48) 19 % (24-48) Monocytes (%) (Auto) 4 % (0-9) 10 % (0-9) Eosinophils (%) (Auto) 0 % (0-3) 1 % (0-3) Basophils (%) (Auto) 0 % (0-3) 0 % (0-3) Neutrophils # (Auto) 6.2 x10^3uL (1.8-7.7) 7.4 x10^3uL (1.8-7.7) Lymphocytes # (Auto) 0.9 x10^3/uL (1.0-4.8) 1.9 x10^3/uL (1.0-4.8) Monocytes # (Auto) 0.3 x10^3/uL (0.0-1.1) 1.0 x10^3/uL (0.0-1.1) Eosinophils # (Auto) 0.0 x10^3/uL (0.0-0.7) 0.0 x10^3/uL (0.0-0.7) Basophils # (Auto) 0.0 x10^3/uL (0.0-0.2) 0.0 x10^3/uL (0.0-0.2) Sodium Level 145 mmol/L (136-145) 143 mmol/L (136-145) Potassium Level 3.5 mmol/L (3.5-5.1) 3.2 mmol/L (3.5-5.1) Chloride Level 105 mmol/L (98-107) 108 mmol/L (98-107) Carbon Dioxide Level 20 mmol/L (21-32) 21 mmol/L (21-32) Anion Gap 20 (6-14) 14 (6-14) Blood Urea Nitrogen 13 mg/dL (7-20) 14 mg/dL (7-20) Creatinine 0.7 mg/dL (0.6-1.0) 0.7 mg/dL (0.6-1.0) Estimated GFR (Cockcroft-Gault) 86.2 86.2 BUN/Creatinine Ratio 19 (6-20) Glucose Level 138 mg/dL (70-99) 107 mg/dL (70-99) Calcium Level 9.3 mg/dL (8.5-10.1) 8.5 mg/dL (8.5-10.1) Total Bilirubin 0.2 mg/dL (0.2-1.0) Aspartate Amino Transf (AST/SGOT) 23 U/L (15-37) Alanine Aminotransferase (ALT/SGPT) 23 U/L (14-59) Alkaline Phosphatase 96 U/L (46-116) Troponin I Quantitative < 0.017 ng/mL (0.000-0.055) Total Protein 7.4 g/dL (6.4-8.2) Albumin 4.2 g/dL (3.4-5.0) Albumin/Globulin Ratio 1.3 (1.0-1.7) Lipase 109 U/L (73-393) Urine Collection Type Unknown Urine Color Yellow Urine Clarity Clear Urine pH 6.0 Urine Specific [place] 1.025 Urine Protein Negative mg/dL (NEG-TRACE) Urine Glucose (UA) Negative mg/dL (NEG) Urine Ketones (Stick) 15 mg/dL (NEG) Urine Blood Small (NEG) Urine Nitrite Positive (NEG) Urine Bilirubin Negative (NEG) Urine Urobilinogen Dipstick 0.2 mg/dL (0.2 mg/dL) Urine Leukocyte Esterase Small (NEG) Urine RBC 1-2 /HPF (0-2) Urine WBC 5-10 /HPF (0-4) Urine Squamous Epithelial Cells Few /LPF Urine Bacteria Many /HPF (0-FEW) Urine Mucus Slight /LPF Medications Current Medications Metoclopramide HCl (Reglan) 10 mg 1X ONCE IV Last administered on 02/21/17 13 :41; Start 02/21/17 at 13:45; Stop 02/21/17 at 13:46; Status DC Morphine Sulfate 4 mg PRN Q15MIN PRN IV/SQ PAIN GREATER THAN 3/10; Start at 14:00; Stop 02/22/17 at 13:59 Iohexol (Omnipaque 300 Mg/ml) 75 ml 1X ONCE IV Last administered on 02/21/17 14:45; Start 02/21/17 at 14:15; Stop 02/21/17 at 14:16; Status DC Info (Do NOT chart on this entry -- for MONITORING) 1 each PRN DAILY PRN MC SEE COMMENTS; Start 02/21/17 at 14:15; Stop 02/23/17 at 14:14 Ceftriaxone Sodium 50 ml @ 100 mls/hr 1X ONCE IV Last administered on 16:58; Start 02/21/17 at 16:00; Stop 02/21/17 at 16:29; Status DC Ceftriaxone Sodium 1 gm/ Sodium Chloride 50 ml @ 100 mls/hr Q24H IV ; Start at 16:00 Metronidazole 100 ml @ 100 mls/hr 1X ONCE IV Last administered on 02/21/17 18:31; Start 02/21/17 at 16:00; Stop 02/21/17 at 16:59; Status DC Metronidazole 100 ml @ 100 mls/hr Q8HRS IV Last administered on 02/22/17 05: 03; Start 02/21/17 at 22:00 Metronidazole 100 ml @ 100 mls/hr 1X ONCE IV ; Start 02/21/17 at 16:15; Stop 02/21/17 at 17:14; Status Cancel Hydralazine HCl (Apresoline) 10 mg PRN Q4HRS PRN IVP ELEVATED BP, SEE COMMENTS ; Start 02/21/17 at 16:45 Acetaminophen (Tylenol) 650 mg PRN Q6HRS PRN PO FEVER; Start 02/21/17 at 16:45 Ondansetron HCl (Zofran) 4 mg PRN Q6HRS PRN IV NAUSEA/VOMITING; Start 02/21/17 at 16:45 Sodium Chloride 1,000 ml @ 100 mls/hr 1X ONCE IV ; Start 02/21/17 at 17:00; Stop 02/22/17 at 02:59; Status DC Tramadol HCl (Ultram) 50 mg PRN Q6HRS PRN PO PAIN; Start 02/21/17 at 17:00 Albuterol Sulfate (Ventolin Neb Soln) 2.5 mg PRN Q2HR PRN NEB SHORTNESS OF BREATH; Start 02/21/17 at 17:00 Vancomycin HCl 500 mg QID PO Last administered on 02/22/17 08:05; Start at 17:00 Ondansetron HCl (Zofran) 4 mg PRN Q8HRS PRN IV NAUSEA/VOMITING; Start 02/21/17 at 16:45; Stop 02/22/17 at 16:44 Morphine Sulfate 4 mg PRN Q2HR PRN IV PAIN; Start 02/21/17 at 16:45; Stop 02/22 at 16:44 Sodium Chloride 1,000 ml @ 125 mls/hr Q8H IV Last administered on 02/22/17 05 :28; Start 02/21/17 at 16:42; Stop 02/22/17 at 16:41 Acetaminophen (Tylenol) 650 mg PRN Q4HRS PRN PO FEVER Last administered on 02/22 06:18; Start 02/21/17 at 16:45; Stop 02/22/17 at 16:44 Pantoprazole Sodium (Protonix) 40 mg DAILYAC PO Last administered on 02/22/17 07:30; Start 02/22/17 at 07:30 Zolpidem Tartrate (Ambien) 5 mg PRN QHS PRN PO INSOMNIA Last administered on 21:10; Start 02/21/17 at 20:15 Active Scripts Active Reported Remeron (Mirtazapine) 15 Mg Tablet 1 Tab PO QHS Prozac (Fluoxetine Hcl) 10 Mg Capsule 1 Cap PO DAILYWBKFT Gabapentin 300 Mg Capsule 300 Mg PO TID Flagyl (Metronidazole) 250 Mg Tablet 1 Tab PO TID Meloxicam 15 Mg Tablet 1 Tab PO DAILY Metoprolol Tartrate 25 Mg Tablet 1 Tab PO BID Furosemide 20 Mg Tablet 1 Tab PO DAILY Lamictal (Lamotrigine) 100 Mg Tablet 1 Tab PO DAILY [place] 5-325 Tablet (Acetaminophen/Hydrocodone Bitart) 1 Each Tablet 1 Tab PO TID Amrix (Cyclobenzaprine Hcl) 15 Mg Cap.er.24h 15 Mg PO Claritin (Loratadine) 10 Mg Tablet 1 Tab PO DAILY Symbicort 80-4.5 Mcg Inhaler (Budesonide/Formoterol Fumarate) 10.2 Gm Hfa.aer.ad 1 Puff IH BID Cyclobenzaprine Hcl 10 Mg Tablet 1 Tab PO TID Kaopectate (Bismuth Subsalicylate) 525 Mg/15 Ml Oral.susp 525 Mg PO Clonazepam 1 Mg Tablet 1 Mg PO DAILY Clonazepam 0.5 Mg Tablet 1 Tab PO DAILY Tylenol Extra Strength (Acetaminophen) 500 Mg Tablet 500 Mg PO Pepcid (Famotidine) 20 Mg Tablet 20 Mg PO BID Wellbutrin Sr (Bupropion Hcl) 150 Mg Tablet.er 150 Mg PO DAILY Xanax (Alprazolam) 0.5 Mg Tablet 0.5 Mg PO PRN BID PRN Colestipol Hcl 1 Gm Tablet 1 Gm PO TID Loperamide (Loperamide Hcl) 2 Mg Tablet 2 Mg PO PRN PRN Zofran (Ondansetron Hcl) 8 Mg Tablet 8 Mg PO PRN PRN Potassium Chloride 20 Meq Tab.er.prt 20 Meq PO TID Wellbutrin Xl (Bupropion Hcl) 300 Mg Tab.er.24h 300 Mg PO DAILY Iron Supplement (Ferrous Sulfate) 325 Mg Tablet 325 Mg PO TID Zolpidem Tartrate 5 Mg Tablet 1 Tab PO QHS Vitals/I & O Vital Sign - Last 24 Hours 02/21/17 02/21/17 02/21/17 02/21/17 13:27 14:00 15:00 17:00 Temp 97.7 97.7 Pulse 65 62 70 70 Resp 18 18 18 20 B/P (MAP) 154/111 (125) 180/93 (122) 132/71 (91) 141/76 (97) Pulse Ox 99 100 100 99 O2 Delivery Room Air Room Air Room Air Room Air 02/21/17 02/21/17 02/21/17 02/21/17 19:00 20:30 20:30 23:00 Temp 98.7 98.9 98.7 98.9 Pulse 65 Resp 18 18 B/P (MAP) 139/70 (93) 149/62 (91) Pulse Ox 100 98 O2 Delivery Room Air Room Air Room Air Room Air 02/22/17 02/22/17 02/22/17 03:00 07:00 08:39 Temp 98.0 98.9 98.0 98.9 Pulse 78 81 Resp 18 18 B/P (MAP) 150/81 (104) 135/54 (81) Pulse Ox 95 93 O2 Delivery Room Air Room Air Room Air Intake and Output 02/21/17 02/21/17 02/22/17 15:00 23:00 07:00 Intake Total 50 ml 1375 ml Output Total 350 ml Balance 50 ml 1025 ml FREDI SEALS III DO February 22, 2017 09:41
[2017-02-22] MEDS ORDERED: ALBUTEROL SULFATE 2.5 MG/3 ML NEBU. NEB SCH (09:45)
[2017-02-22] MEDS ORDERED: POTASSIUM CHLORIDE 20 MEQ TABLET.ER. PO ONE (09:45)
--- NOTE | 2017-02-22 09:49 | PDOC2 ---
GI CONSULT Reason For Consult: N/v, diarrhea HPI: HPI: 56 y/o female, known to us. H/o anemia, diarrhea, and gastric sleeve. Previous GI workup: EGD 03/2014: grade 1 reflux esophagitis w/ possible candidiasis, evidence of prior gastric sleeve, mild gastritis, and duodenitis w/ atrophy and flattened folds. Biopsies negative for Wyman's, H. pylori, and celiac sprue. EGD 09/2014: grade 2 reflux esophagitis, prior gastric sleeve, and gastritis. Biopsies again negative for Wyman's, H. pylori, and celiac sprue. SBCE 04/2014: esophagitis, prior gastric sleeve, mild duodenitis. No source of bleeding identified. Colonoscopy 03/2014: internal hemorrhoids and random colon biopsies showed acute/chronic inflammation. Colonoscopy 09/2014: sigmoid diverticulosis and mild patchy colitis in transverse colon w/ biopsies that were negative for pathology. Colonoscopy 11/2015: diverticulosis and normal random colon biopsies. Upper GI/Barium swallow 11/2015: negative. Also reports h/o C Diff treated w/ tomasa at [facility] last year. Takes iron and B12 at home, uses Pepcid PRN, uses Imodium frequently. In the past has also tried carafate, steroids, Lomotil, Colestipol, probiotics, pancreatic enzymes, Flagyl, and Kaopectate. Last admission trial of FiberCon was discussed. On this occasion admitted through the ER for onset of n/v and diarrhea (too many times to count, probably more than 20) yesterday. Also some abdominal discomfort. Perhaps had some streaks of blood on the toilet tissue attributed to watery stools/hemorrhoids. No recurrence of symptoms since admitted, feeling better. ID is following for h/o C Diff, which is pending. PMH: PMH: anxiety, depression, alopecia, arthritis, sleep apnea, anemia, COPD, C Diff, cholecystectomy, tonsillectomy, gastric sleeve FH: Family History: CAD, DM, Hypertension, Other (mother - liver disease) Social History: Smoke: Quit ALCOHOL: rare Drugs: None ROS: GEN: Denies fevers, chills, sweats HEENT: Denies blurred vision, sore throat CV: Denies chest pain RESP: Denies shortness of air, cough GI: Per HPI : Denies hematuria, dysuria ENDO: Denies weight changes NEURO: Denies confusion, dizziness MSK: Denies weakness, joint pain/swelling SKIN: Denies jaundice, pruritus Vitals: Vitals: Vital Signs Date Time Temp Pulse Resp B/P (MAP) Pulse Ox O2 Delivery O2 Flow Rate FiO2 02/22/17 08:39 Room Air 02/22/17 07:00 98.9 81 18 135/54 (81) 93 98.9 Labs: Labs: Laboratory Tests Test 02/21/17 13:30 02/21/17 14:35 02/22/17 05:48 White Blood Count 7.4 x10^3/uL (4.0-11.0) 10.4 x10^3/uL (4.0-11.0) Red Blood Count 4.57 x10^6/uL (3.50-5.40) 4.13 x10^6/uL (3.50-5.40) Hemoglobin 14.7 g/dL (12.0-15.5) 12.9 g/dL (12.0-15.5) Hematocrit 42.0 % (36.0-47.0) 38.8 % (36.0-47.0) Mean Corpuscular Volume 92 fL (79-100) 94 fL (79-100) Mean Corpuscular Hemoglobin 32 pg (25-35) 31 pg (25-35) Mean Corpuscular Hemoglobin Concent 35 g/dL (31-37) 33 g/dL (31-37) Red Cell Distribution Width 12.9 % (11.5-14.5) 12.9 % (11.5-14.5) Platelet Count 236 x10^3/uL (140-400) 214 x10^3/uL (140-400) Neutrophils (%) (Auto) 83 % (31-73) 71 % (31-73) Lymphocytes (%) (Auto) 12 % (24-48) 19 % (24-48) Monocytes (%) (Auto) 4 % (0-9) 10 % (0-9) Eosinophils (%) (Auto) 0 % (0-3) 1 % (0-3) Basophils (%) (Auto) 0 % (0-3) 0 % (0-3) Neutrophils # (Auto) 6.2 x10^3uL (1.8-7.7) 7.4 x10^3uL (1.8-7.7) Lymphocytes # (Auto) 0.9 x10^3/uL (1.0-4.8) 1.9 x10^3/uL (1.0-4.8) Monocytes # (Auto) 0.3 x10^3/uL (0.0-1.1) 1.0 x10^3/uL (0.0-1.1) Eosinophils # (Auto) 0.0 x10^3/uL (0.0-0.7) 0.0 x10^3/uL (0.0-0.7) Basophils # (Auto) 0.0 x10^3/uL (0.0-0.2) 0.0 x10^3/uL (0.0-0.2) Sodium Level 145 mmol/L (136-145) 143 mmol/L (136-145) Potassium Level 3.5 mmol/L (3.5-5.1) 3.2 mmol/L (3.5-5.1) Chloride Level 105 mmol/L (98-107) 108 mmol/L (98-107) Carbon Dioxide Level 20 mmol/L (21-32) 21 mmol/L (21-32) Anion Gap 20 (6-14) 14 (6-14) Blood Urea Nitrogen 13 mg/dL (7-20) 14 mg/dL (7-20) Creatinine 0.7 mg/dL (0.6-1.0) 0.7 mg/dL (0.6-1.0) Estimated GFR (Cockcroft-Gault) 86.2 86.2 BUN/Creatinine Ratio 19 (6-20) Glucose Level 138 mg/dL (70-99) 107 mg/dL (70-99) Calcium Level 9.3 mg/dL (8.5-10.1) 8.5 mg/dL (8.5-10.1) Total Bilirubin 0.2 mg/dL (0.2-1.0) Aspartate Amino Transf (AST/SGOT) 23 U/L (15-37) Alanine Aminotransferase (ALT/SGPT) 23 U/L (14-59) Alkaline Phosphatase 96 U/L (46-116) Troponin I Quantitative < 0.017 ng/mL (0.000-0.055) Total Protein 7.4 g/dL (6.4-8.2) Albumin 4.2 g/dL (3.4-5.0) Albumin/Globulin Ratio 1.3 (1.0-1.7) Lipase 109 U/L (73-393) Urine Collection Type Unknown Urine Color Yellow Urine Clarity Clear Urine pH 6.0 Urine Specific [place] 1.025 Urine Protein Negative mg/dL (NEG-TRACE) Urine Glucose (UA) Negative mg/dL (NEG) Urine Ketones (Stick) 15 mg/dL (NEG) Urine Blood Small (NEG) Urine Nitrite Positive (NEG) Urine Bilirubin Negative (NEG) Urine Urobilinogen Dipstick 0.2 mg/dL (0.2 mg/dL) Urine Leukocyte Esterase Small (NEG) Urine RBC 1-2 /HPF (0-2) Urine WBC 5-10 /HPF (0-4) Urine Squamous Epithelial Cells Few /LPF Urine Bacteria Many /HPF (0-FEW) Urine Mucus Slight /LPF Allergies: Coded Allergies: I S O L A T I O N *CONTACT* (Verified Allergy, Intermediate, SEVERE, ) Penicillins (Verified Allergy, Intermediate, 11/26/15) guaifenesin (Verified Allergy, Intermediate, 11/26/15) meperidine (Verified Allergy, Intermediate, 11/26/15) Medications: Current Medications Medications (Trade) Dose Ordered Sig/Akil Route PRN Reason Start Time Stop Time Status Last Admin Dose Admin Metoclopramide HCl (Reglan) 10 mg 1X ONCE IV 02/21/17 13:45 02/21/17 13:46 DC 02/21/17 13:41 Iohexol (Omnipaque 300 Mg/ml) 75 ml 1X ONCE IV 02/21/17 14:15 02/21/17 14:16 DC 02/21/17 14:45 Ceftriaxone Sodium 50 ml @ 100 mls/hr 1X ONCE IV 02/21/17 16:00 02/21/17 16:29 DC 02/21/17 16:58 Metronidazole 100 ml @ 100 mls/hr 1X ONCE IV 02/21/17 16:00 02/21/17 16:59 DC 02/21/17 18:31 Metronidazole 100 ml @ 100 mls/hr Q8HRS IV 02/21/17 22:00 02/22/17 05:03 Vancomycin HCl 500 mg QID PO 02/21/17 17:00 02/22/17 08:05 Sodium Chloride 1,000 ml @ 125 mls/hr Q8H IV 02/21/17 16:42 02/22/17 16:41 02/22/17 05:28 Acetaminophen (Tylenol) 650 mg PRN Q4HRS PRN PO FEVER 02/21/17 16:45 02/22/17 16:44 02/22/17 06:18 Pantoprazole Sodium (Protonix) 40 mg DAILYAC PO 02/22/17 07:30 02/22/17 07:30 Zolpidem Tartrate (Ambien) 5 mg PRN QHS PRN PO INSOMNIA 02/21/17 20:15 02/21/17 21:10 Imaging: Imaging: CT A/P w/ IV contrast IMPRESSION: Possible mild inflammatory changes involving the sigmoid colon and right colon. The finding is not certain. An additional acute finding is not suggested in the abdomen or pelvis. PE: GEN: NAD, sitting up in bed HEENT: Atraumatic, PERRL LUNGS: CTAB HEART: RRR ABD: NABS, S/ND/NT EXTREMITY: No edema SKIN: No rashes, no jaundice NEURO/PSYCH: A & O 3 A/P: A/P: N/v, diarrhea, abd pain - improved -does have chronic GI issues, symptoms suddenly worse yesterday, now improved H/o gastric sleeve H/o C Diff -last year at [facility] ID following here GERD -H2 anitha PRN CRC screen -up to date H/o anemia -normal Hgb on iron and B12 -- C Diff is pending, but seems unlikely without ongoing diarrhea here. Per ID. Note plans to advance diet. Other per Dr. Zapata. BRIELLE THOMAS February 22, 2017 09:49
[2017-02-22 11:00] VITALS: BP 120/65
[2017-02-22] MEDS ORDERED: ZOLPIDEM 5 MG TABLET. PO PRN (11:15)
[2017-02-22 15:00] VITALS: BP 129/69
[2017-02-22] MEDS ORDERED: LEVO500T38 PO (16:27)
--- NOTE | 2017-02-23 03:47 | CONS ---
DATE OF CONSULTATION: 02/22/2017 REQUESTING PHYSICIAN: Dr. Lindsey. REASON FOR CONSULTATION: Nausea, vomiting and diarrhea with a history of C. diff. HISTORY OF PRESENT ILLNESS: This 56-year-old female with a history of gastric sleeve surgery who also says she has had diarrhea, C. diff a year or two ago, presented with diarrhea started first and then nausea, vomiting. The patient had some abdominal discomfort. The patient denies any fever, has had some chills. Denies any urinary symptoms, denies any chest pain, headache or visual symptoms. PAST MEDICAL HISTORY: Positive for anemia, gastric sleeve surgery, anxiety, depression, hypertension, seizure disorder. SOCIAL HISTORY: Negative for smoking. The patient has had cholecystectomy, mastectomy and pacemaker in place. SOCIAL HISTORY: Positive for smoking, no alcohol use or drug use. ALLERGIES: NO KNOWN DRUG ALLERGIES. THE PATIENT IS LISTED PENICILLIN ALLERGY, BUT THAT CAUSED INJECTION SITE ABSCESSES. THE PATIENT HAS TAKEN AMOXICILLIN WITHOUT ANY PROBLEM, PENICILLIN ALLERGY SHOULD BE TAKEN OUT FROM HER PROFILE. CURRENT MEDICATIONS: Reviewed. The patient is on Rocephin and Flagyl. REVIEW OF SYSTEMS: As per HPI, all other systems reviewed are negative. PHYSICAL EXAMINATION: GENERAL: Alert, oriented female, not in any distress. VITAL SIGNS: Stable, afebrile. HEENT: NAD. NECK: Supple, no JVP, no lymphadenopathy. LUNGS: Clear. HEART: S1, S2 regular. ABDOMEN: Benign. EXTREMITIES: No edema, cyanosis. SKIN: Unremarkable. NEUROLOGIC: The patient is neurologically intact. LABORATORY DATA: White count is normal. BUN and creatinine is normal. Urinalysis showed 5-10 wbc. Stool sample has not been obtained since she has not had any stools since she came in. CT scan of the abdomen and pelvis showed mild intermittent changes in the sigmoid colon and right colon. IMPRESSION: 1. Nausea, vomiting, diarrhea, probably has gastroenteritis although C. diff needs to be ruled out. 2. History of gastric sleeve surgery. 3. Anxiety. 4. Depression. 5. Obesity. 6. Anemia. RECOMMENDATIONS: Continue Rocephin and Flagyl. Check stool for C. diff, supportive care and soon to be able to discharge. The patient will start regular food. Thank you very much, Dr. Lindsey, for giving me the opportunity to participate in this patient's care. SON JEFFRIES MD DR: RISSA/jaime JOB#: [id number] / [id number]
== END 2017-02-22 16:35 | disposition home or self-care (01) | DRG 392 ==
LOC: ER 13:24 → 4 NORTH 15:56
PROVIDERS: ADMIT Internal Medicine; ATTEND Internal Medicine
DX: A08.4 Viral intestinal infection, unspecified (principal); N39.0 Urinary tract infection, site not specified; B34.9 Viral infection, unspecified; D64.9 Anemia, unspecified; E66.9 Obesity, unspecified; F32.9 Major depressive disorder, single episode, unspecified; F41.9 Anxiety disorder, unspecified; G40.909 Epilepsy, unspecified, not intractable, without status epilepticus; I11.0 Hypertensive heart disease with heart failure; I16.0 Hypertensive urgency; I50.9 Heart failure, unspecified; J44.9 Chronic obstructive pulmonary disease, unspecified; K43.9 Ventral hernia without obstruction or gangrene; K44.9 Diaphragmatic hernia without obstruction or gangrene; M19.90 Unspecified osteoarthritis, unspecified site; M43.17 Spondylolisthesis, lumbosacral region; Z82.49 Family history of ischemic heart disease and other diseases of the circulatory system; Z83.3 Family history of diabetes mellitus; Z95.0 Presence of cardiac pacemaker; Z98.84 Bariatric surgery status; Z88.8 Allergy status to other drugs, medicaments and biological substances; Z91.010 Allergy to peanuts; Z90.49 Acquired absence of other specified parts of digestive tract; Z90.13 Acquired absence of bilateral breasts and nipples
CPT/HCPCS: 36415; 74177; 80048; 80053; 81001; 83690; 84484; 85027; 87086; 93005; 96365; 96375; J0690; J2765; J3490; J7030; Q9967; 99285-25

== ENCOUNTER 2017-09-11 19:03 | Inpatient (IN) | payer BC, MEDICARE ==
[~2017-09-11] VITALS: Ht 165.1 cm; Wt 93.4 kg
[~2017-09-11 19:03] MED LIST changes: +BUDE10.22 IH; +CYCL10TA2 PO; +CYCL15CA19 PO; +FLUO10CA13 PO; +FURO20TA3 PO; +GABA-586 PO; +HYDR-971 PO; +LAMO100T5 PO; +LEVO500T59 PO; +LORA10TA68 PO; +MELO15TA23 PO; +METO-239 PO; +METO25TA4 PO; -METO25TA9 PO; +METR250T PO; +MIRT15TA PO; -SUCR1TAB29 PO; +SUCR1TAB35 PO
[2017-09-11] MEDS ORDERED: ONDANSETRON PF 4 MG/2 ML VIAL. IV ONE (19:30)
[2017-09-11 20:07] LABS: BASO % 1 % (0-3); EOS % 5 % (0-3); HEMATOCRIT 27.3 % (36.0-47.0); HEMOGLOBIN 8.4 g/dL (12.0-15.5); LYMPH # 1.5 x10^3/uL (1.0-4.8); LYMPH % 26 % (24-48); MEAN CORPUSCULAR HEMOGLOBIN 20 pg (25-35); MEAN CORPUSCULAR HGB CONC 31 g/dL (31-37); MEAN CORPUSCULAR VOLUME 65 fL (79-100); MONO % 11 % (0-9); NEUT % 58 % (31-73); PLATELET COUNT 240 x10^3/uL (140-400); RED BLOOD COUNT 4.21 x10^6/uL (3.50-5.40); RED CELL DISTRIBUTION WIDTH 18.6 % (11.5-14.5); WHITE BLOOD COUNT 5.7 x10^3/uL (4.0-11.0)
[2017-09-11 20:08] LABS: BILIRUBIN,URINE NEGATIVE (NEG); GLUCOSE,URINE NEGATIVE (NEG); NITRITE,URINE NEGATIVE (NEG); PH,URINE 6.5; PROTEIN,URINE NEGATIVE (NEG-TRACE); UROBILINOGEN,URINE 0.2 mg/dL (0.2 mg/dL)
[2017-09-11 20:11] LABS: NEG OBC FOB NEG; POS OBC FOB POS
[2017-09-11 20:13] LABS: BACTERIA,URINE MODERATE /HPF (0-FEW); RBC,URINE 0 /HPF (0-2); SQUAMOUS EPITHELIAL CELL,UR MOD /LPF
[2017-09-11] MEDS ORDERED: IV NORMAL SALINE 1000ML BAG 1,000 ML IV ONE (20:15)
[2017-09-11] MEDS: MORPHINE SULFATE 4 MG/ML DISP.SYRIN. IV/SQ PRN ×2 (20:15→23:33)
[2017-09-11 20:16] LABS: INR 1.1 (0.8-1.1); PROTHROMBIN TIME PATIENT 13.3 SEC (11.7-14.0)
[2017-09-11 20:21] LABS: CALCIUM 8.5 mg/dL (8.5-10.1); CREATININE 0.8 mg/dL (0.6-1.0); GFR 73.7; POTASSIUM 4.4 mmol/L (3.5-5.1)
[2017-09-11 20:27] LABS: ALBUMIN 3.6 g/dL (3.4-5.0); ALBUMIN/GLOBULIN RATIO 1.2 (1.0-1.7); TOTAL BILIRUBIN 0.2 mg/dL (0.2-1.0); TOTAL PROTEIN 6.7 g/dL (6.4-8.2)
[2017-09-11] MEDS ORDERED: CONTRAST GIVEN MC PRN (20:30)
[2017-09-11] MEDS ORDERED: IOHEXOL 300 MG/ML 100ML VIAL. IV ONE (20:30)
[2017-09-11 21:00] LABS: ANISOCYTOSIS SLIGHT; HYPOCHROMIA MARKED; MICROCYTOSIS MARKED; PLT ESTIMATE ADEQUATE (ADEQUATE); POIKILOCYTOSIS SLIGHT
--- NOTE | 2017-09-11 22:13 | RAD ---
CT SCAN OF THE ABDOMEN AND PELVIS WITH IV CONTRAST. History: Abdominal pain and dark stool Comparison: February 21, 2017. Procedure: Contiguous axial images of the abdomen and pelvis were performed after the administration of 75 cc of Omni 300 IV contrast and without oral contrast. CT Abdomen with contrast: Findings: Liver: Unremarkable Spleen: Mildly enlarged Pancreas: Unremarkable Adrenal Glands: Unremarkable Kidneys: Unremarkable There is no mass or lymphadenopathy. There is no free air. There is no free fluid. CT Pelvis with Contrast: Findings: The urinary bladder appears normal. There is no free fluid. There is no lymphadenopathy. The appendix is not well seen. There is old pelvic fractures seen previously. Impression: Mild splenomegaly. PQRS Compliance Statement: One or more of the following individualized dose reduction techniques were utilized for this examination: 1. Automated exposure control 2. Adjustment of the mA and/or kV according to patient size 3. Use of iterative reconstruction technique Electronically signed by: Roberto Wright III, MD (09/11/2017 10:10 PM) [facility]
--- NOTE | 2017-09-11 22:26 | ED.ADGEN ---
Past Medical History Past Medical History: Anemia, Arthritis, CHF, Depression, GI Bleed, Hypertension, Seizure Additional Past Medical Histor: diarrhea; "Carcinoma of back" Past Surgical History: Cholecystectomy, Tonsillectomy, Other Additional Past Surgical Histo: gastric sleeve sx, HERNIA Alcohol Use: Rarely Drug Use: None Adult General Chief Complaint Chief Complaint: RECTAL BLEED HPI HPI Patient is a 57 year old woman, history of gastric bypass surgery, GI bleed which did require blood transfusion about a year ago, anemia, hypertension, CHF , who presents to the emergency department with a complaint of one episode of dark tarry stool that cartilage today, followed by an episode of a mucoid stool with bright red blood, and several days of right lower quadrant abdominal pain. Patient denies any preceding constipation or diarrhea, any fevers or chills, states that the pain she is experiencing previously when she had a prior GI bleed about a year ago. She was seen by Dr. Molina of GI, and had a scope performed did not reveal any source of her bleeding. She she does use ibuprofen about 200 mg to 400 mg at bedtime daily, as "acetaminophen does not work". No back pain, no urinary complaints, no swelling extremities, no rashes, no recent travel, surgery, or changes in medication. Review of Systems Review of Systems Constitutional: Denies fever or chills. []Generalized malaise. Eyes: Denies change in visual acuity. [] HENT: Denies nasal congestion or sore throat. [] Respiratory: Denies cough or shortness of breath. [] Cardiovascular: Denies chest pain or edema. [] GI: Abdominal pain, mild nausea, no vomiting, bloody stools and dark tarry stools this morning when episode each. Occasional diarrhea preceding. : Denies dysuria. [] Musculoskeletal: Denies back pain or joint pain. [] Integument: Denies rash. [] Neurologic: Denies headache, focal weakness or sensory changes. [] Endocrine: Denies polyuria or polydipsia. [] Lymphatic: Denies swollen glands. [] Psychiatric: Denies depression or anxiety. [] Current Medications Current Medications Current Medications Medications (Trade) Dose Ordered Sig/Akil Start Time Stop Time Status Last Admin Dose Admin Info (Do NOT chart on this entry -- for MONITORING) 1 each PRN DAILY PRN 09/11/17 20:30 09/13/17 20:29 Iohexol (Omnipaque 300 Mg/ml) 75 ml 1X ONCE 09/11/17 20:30 09/11/17 20:31 DC 09/11/17 21:01 75 ML Morphine Sulfate 4 mg PRN Q15MIN PRN 09/11/17 20:15 09/12/17 20:14 09/11/17 20:15 4 MG Ondansetron HCl (Zofran) 4 mg PRN Q8HRS PRN 09/11/17 23:00 09/12/17 22:59 UNV Sodium Chloride 1,000 ml @ 1,000 mls/hr 1X ONCE 09/11/17 20:15 09/11/17 21:14 DC 09/11/17 20:19 1,000 MLS/HR Allergies Allergies Allergies Coded Allergies Type Severity Reaction Last Updated Verified I S O L A T I O N *CONTACT* Allergy Intermediate SEVERE 02/21/17 Yes guaifenesin Allergy Intermediate 11/26/15 Yes meperidine Allergy Intermediate 11/26/15 Yes Physical Exam Physical Exam Constitutional: Well developed, well nourished, no acute distress, non-toxic appearance. [] HENT: Normocephalic, atraumatic, bilateral external ears normal, oropharynx moist, no oral exudates, nose normal. [] Eyes: PERRLA, EOMI, conjunctiva normal, no discharge. [] Neck: Normal range of motion, no tenderness, supple, no stridor. [] Cardiovascular:Heart rate regular rhythm, no murmur, S1, S2, rubs or gallops. [] Lungs & Thorax: Bilateral breath sounds clear to auscultation, no wheezing, rhonchi, rales. No chest wall tenderness or crepitus. [] Abdomen: Bowel sounds normal, soft, patient with tenderness palpation in the lower abdomen, right lower quadrant, no rebound or rigidity, positive for mild voluntary guarding, no masses, no pulsatile masses. [] Skin: Warm, dry, no erythema, no rash. [] Back: No tenderness, no CVA tenderness. [] Extremities: No tenderness, no cyanosis, no clubbing, ROM intact, no edema. [] Neurologic: Alert and oriented X 3, normal motor function, normal sensory function, no focal deficits noted. [] Psychologic: Affect normal, judgement normal, mood normal. [] [facility]: Patient with normal-appearing external examination, no hemorrhoids or other abnormalities identified, patient with good tone, no masses palpated, small amount of brown mucous noted in vault, no active bleeding. Current Patient Data Vital Signs Vital Signs Date Time Temp Pulse Resp B/P (MAP) Pulse Ox O2 Delivery O2 Flow Rate FiO2 09/11/17 19:20 98.1 85 18 158/69 (98) 100 Room Air 98.1 Lab Values Laboratory Tests Test 09/11/17 19:20 09/11/17 19:45 09/11/17 19:52 09/11/17 20:25 Urine Collection Type Unknown Urine Color Yellow Urine Clarity Clear Urine pH 6.5 Urine Specific [place] 1.015 Urine Protein Negative mg/dL (NEG-TRACE) Urine Glucose (UA) Negative mg/dL (NEG) Urine Ketones (Stick) Negative mg/dL (NEG) Urine Blood Negative (NEG) Urine Nitrite Negative (NEG) Urine Bilirubin Negative (NEG) Urine Urobilinogen Dipstick 0.2 mg/dL (0.2 mg/dL) Urine Leukocyte Esterase Moderate (NEG) Urine RBC 0 /HPF (0-2) Urine WBC 11-20 /HPF (0-4) Urine Squamous Epithelial Cells Mod /LPF Urine Bacteria Moderate /HPF (0-FEW) White Blood Count 5.7 x10^3/uL (4.0-11.0) Red Blood Count 4.21 x10^6/uL (3.50-5.40) Hemoglobin 8.4 g/dL (12.0-15.5) L Hematocrit 27.3 % (36.0-47.0) L Mean Corpuscular Volume 65 fL (79-100) L Mean Corpuscular Hemoglobin 20 pg (25-35) L Mean Corpuscular Hemoglobin Concent 31 g/dL (31-37) Red Cell Distribution Width 18.6 % (11.5-14.5) H Platelet Count 240 x10^3/uL (140-400) Neutrophils (%) (Auto) 58 % (31-73) Lymphocytes (%) (Auto) 26 % (24-48) Monocytes (%) (Auto) 11 % (0-9) H Eosinophils (%) (Auto) 5 % (0-3) H Basophils (%) (Auto) 1 % (0-3) Neutrophils # (Auto) 3.3 x10^3uL (1.8-7.7) Lymphocytes # (Auto) 1.5 x10^3/uL (1.0-4.8) Monocytes # (Auto) 0.6 x10^3/uL (0.0-1.1) Eosinophils # (Auto) 0.3 x10^3/uL (0.0-0.7) Basophils # (Auto) 0.0 x10^3/uL (0.0-0.2) Platelet Estimate Adequate (ADEQUATE) Hypochromasia Marked Poikilocytosis Slight Anisocytosis Slight Microcytosis Marked Prothrombin Time 13.3 SEC (11.7-14.0) Prothrombin Time INR 1.1 (0.8-1.1) PTT 28 SEC (24-38) Sodium Level 140 mmol/L (136-145) Potassium Level 4.4 mmol/L (3.5-5.1) Chloride Level 103 mmol/L (98-107) Carbon Dioxide Level 26 mmol/L (21-32) Anion Gap 11 (6-14) Blood Urea Nitrogen 8 mg/dL (7-20) Creatinine 0.8 mg/dL (0.6-1.0) Estimated GFR (Cockcroft-Gault) 73.7 BUN/Creatinine Ratio 10 (6-20) Glucose Level 95 mg/dL (70-99) Calcium Level 8.5 mg/dL (8.5-10.1) Total Bilirubin 0.2 mg/dL (0.2-1.0) Aspartate Amino Transferase (AST) 10 U/L (15-37) L Alanine Aminotransferase (ALT) 13 U/L (14-59) L Alkaline Phosphatase 177 U/L (46-116) H Troponin I Quantitative < 0.017 ng/mL (0.000-0.055) Total Protein 6.7 g/dL (6.4-8.2) Albumin 3.6 g/dL (3.4-5.0) Albumin/Globulin Ratio 1.2 (1.0-1.7) Lipase 106 U/L (73-393) Stool Occult Blood Negative (NEG) Lactic Acid Level 1.0 mmol/L (0.4-2.0) Laboratory Tests 09/11/17 19:45 Laboratory Tests 09/11/17 19:45 EKG EKG EC: Sinus rhythm, heart rate 73 beats are minute, upright axis, QTC of 447, VT 170, QRS of 80, patient with contour normality is noted in the inferior leads, no significant ST elevations or depressions, patient with mild baseline artifact noted, abnormal ECG, does not meet STEMI criteria. As interpreted by me.[] Radiology/Procedures Radiology/Procedures [facility] [address] [place] [address] IMAGING REPORT Signed PATIENT: WILY CALDERON ACCOUNT: [id number] : 1960 LOCATION: ER AGE: 57 SEX: F EXAM STATUS: REG ER ORD. PHYSICIAN: MINA FRIEND DO REASON: abd pain/dark stool PROCEDURE: CT ABD PELV W/ IV CONTRST ONLY CT SCAN OF THE ABDOMEN AND PELVIS WITH IV CONTRAST. History: Abdominal pain and dark stool Comparison: February 21, 2017. Procedure: Contiguous axial images of the abdomen and pelvis were performed after the administration of 75 cc of Omni 300 IV contrast and without oral contrast. CT Abdomen with contrast: Findings: Liver: Unremarkable Spleen: Mildly enlarged Pancreas: Unremarkable Adrenal Glands: Unremarkable Kidneys: Unremarkable There is no mass or lymphadenopathy. There is no free air. There is no free fluid. CT Pelvis with Contrast: Findings: The urinary bladder appears normal. There is no free fluid. There is no lymphadenopathy. The appendix is not well seen. There is old pelvic fractures seen previously. Impression: Mild splenomegaly. PQRS Compliance Statement: One or more of the following individualized dose reduction techniques were utilized for this examination: 1. Automated exposure control 2. Adjustment of the mA and/or kV according to patient size 3. Use of iterative reconstruction technique Electronically signed by: Andrea Heard III, MD (09/11/2017 10:10 PM) [facility] DICTATED and SIGNED BY: ANDREA HEARD III, MD DATE: 09/11/172152 CC: SULTANA BARRERA MD; MINA FRIEND DO; JEREL IZAGUIRRE MD ~ Course & Med Decision Making Course & Med Decision Making Pertinent Labs and Imaging studies reviewed. (See chart for details) Patient states her pain is currently 8 out of 10, describes a cramping sensation that has been constant over the past day or so. Patient states it has worsened after the episodes of bowel movement. She states she had a normal bowel movement yesterday. Patient is agreeable to receiving antiemetics, analgesia, imaging laboratory studies to further elucidate her symptoms, including CT of abdomen pelvis with contrast. Patient with no gross blood and examination of the rectum, fecal occult was pending, patient's laboratory studies, and imaging, at time of sign out to Dr. Barrera, who assumed care of this patient. I spoke with the patient he states that she's having weakness when going up steps and her states that she's having significant weakness and shortness of breath when she tries to exert herself. Spoke with Dr. Hewitt who agrees except the patient for admission. Her hemoglobin is down to 8 from 12 back in January. We will give one unit and admit with consultation to GI and Hem/ onc. She is in stable condition at this time. I spent approximately 55 minutes working and engaged directly in the patient care providing critical care evaluation this includes but not limited to time spent engaged in work directly related to the individual patients care. I spent time at the bedside, reviewing test results, discussing the case with staff, documenting the medical record and time spent with EMS discussing specific treatment issues when the patient presented and during his evaluation. This includes any discussion and updates with family members and/or patient. Dragon Disclaimer Dragon Disclaimer This electronic medical record was generated, in whole or in part, using a voice recognition dictation system. Departure Impression: Primary Impression: Anemia Disposition: ADMITTED INPATIENT Admitting Physician: Jerel Izaguirre Condition: STABLE MINA FRIEND DO Sep 11, 2017 22:26 SULTANA BARRERA MD Sep 11, 2017 22:57
[2017-09-11 23:00] LABS: HEMATOCRIT 27.5 % (36.0-47.0); HEMOGLOBIN 8.5 g/dL (12.0-15.5)
[2017-09-11] MEDS ORDERED: ONDANSETRON PF 4 MG/2 ML VIAL. IV PRN (23:00)
[2017-09-11 23:28] VITALS: BP 121/59
[2017-09-11 23:42] VITALS: BP 113/55
[2017-09-12] VITALS (8 sets, daily range): BP systolic 115–132; BP diastolic 55–74
[2017-09-12] MEDS ORDERED: GABA600T2 PO (01:57)
[2017-09-12] MEDS ORDERED: BREX2TAB PO (01:57)
[2017-09-12] MEDS: MORPHINE SULFATE 2 MG/ML DISP.SYRIN. IV PRN ×3 (02:06→14:21)
[2017-09-12 05:36] LABS: BASO % 1 % (0-3); EOS % 7 % (0-3); HEMATOCRIT 28.8 % (36.0-47.0); HEMOGLOBIN 8.9 g/dL (12.0-15.5); LYMPH # 1.6 x10^3/uL (1.0-4.8); LYMPH % 27 % (24-48); MEAN CORPUSCULAR HEMOGLOBIN 21 pg (25-35); MEAN CORPUSCULAR HGB CONC 31 g/dL (31-37); MEAN CORPUSCULAR VOLUME 67 fL (79-100); MONO % 12 % (0-9); NEUT % 54 % (31-73); PLATELET COUNT 212 x10^3/uL (140-400); RED BLOOD COUNT 4.33 x10^6/uL (3.50-5.40); RED CELL DISTRIBUTION WIDTH 19.3 % (11.5-14.5); WHITE BLOOD COUNT 5.9 x10^3/uL (4.0-11.0)
[2017-09-12 05:56] LABS: CALCIUM 8.1 mg/dL (8.5-10.1); CREATININE 0.7 mg/dL (0.6-1.0); GFR 85.9; POTASSIUM 4.3 mmol/L (3.5-5.1)
--- NOTE | 2017-09-12 06:54 | EKG ---
[facility] [address] [place] [address] Test Date: 2017-09-11 Test Time: 20:24:28 Pat Name: WILY CALDERON Department: Room: 524 1 Gender: F Edm Operator: : 1960 Requested By: MINA FRIEND Order Number: [id number] Reading MD: Emiliano Little MD Measurements Intervals [place] Rate: 72 P: 59 DE: 170 QRS: 76 QRSD: 80 T: 42 QT: 402 QTc: 446 Interpretive Statements SINUS RHYTHM CONSISTENT WITH INFERIOR INFARCT Electronically Signed On 09-19-2017 13:57:08 [employer]LL ED[employer] MACHINE OPERATOR by Emiliano Little MD
[2017-09-12 08:49] LABS: % SAT IRON 13 % (15-34); IRON,SERUM 56 ug/dL (50-170)
--- NOTE | 2017-09-12 09:16 | PDOC2 ---
GI CONSULT Reason For Consult: Rectal bleeding HPI: HPI: 56 y/o female, known to us, has seen both Dr. Molina and Dr. Zapata. S/p gastric sleeve and cholecystectomy w/ h/o anemia and diarrhea. On this occasion , came to ER yesterday after passing a semi-formed black stool followed by a mucousy-stool "that looked like it probably had some blood in it." No stools since. Associated w/ BLQ discomfort (right > left), some nausea. Appetite has decreased recently, has lost a few pounds - attributes both in part to dental issues and teeth extractions. To see oral surgeon early next year re: this. For "arthritis pain" takes ibuprofen PRN, not daily, because nothing else works. Previous workup: EGD 03/2014: grade 1 reflux esophagitis w/ possible candidiasis, evidence of prior gastric sleeve, mild gastritis, and duodenitis w/ atrophy and flattened folds. Biopsies negative for Wyman's, H. pylori, and celiac sprue. EGD 09/2014: grade 2 reflux esophagitis, prior gastric sleeve, and gastritis. Biopsies again negative for Wyman's, H. pylori, and celiac sprue. SBCE 04/2014: esophagitis, prior gastric sleeve, mild duodenitis. No source of bleeding identified. Colonoscopy 03/2014: internal hemorrhoids and random colon biopsies showed acute/chronic inflammation. Colonoscopy 09/2014: sigmoid diverticulosis and mild patchy colitis in transverse colon w/ biopsies that were negative for pathology. Colonoscopy 11/2015: diverticulosis and normal random colon biopsies. Upper GI/Barium swallow 11/2015: negative. H/o C Diff @ [facility] treated w/ vanco. H/o anemia previously improved w/ iron and B12. Has been off both for awhile because her labs were normal. Occasional GERD symptoms, takes Pepcid PRN. (Previously tried Carafate.) H/o diarrhea, takes Imodium PRN and probiotics QD. (Previously tried steroids, Lomotil, Colestipol, pancreatic enzymes, Flagyl, and Kaopectate.) Labs: Hgb remains in 8s s/p transfusion 1 unit pRBCs. For comparison, Hgb was 12-14 in 01/2017 (on iron and B12). In 11/2015, was in 7-8 range. Fecal occult was negative. CT w/ mild splenomegaly. PMH: PMH: anxiety, depression, alopecia, arthritis, sleep apnea, anemia, COPD, C Diff, cholecystectomy, tonsillectomy, gastric sleeve FH: Family History: CAD, DM, Hypertension, Other Social History: ALCOHOL: rare Drugs: None ROS: GEN: Denies fevers, chills, sweats HEENT: Denies blurred vision, sore throat CV: Denies chest pain RESP: Denies shortness of air, cough GI: Per HPI : Denies hematuria, dysuria ENDO: +weight loss NEURO: Denies confusion, dizziness MSK: Denies weakness, joint pain/swelling SKIN: Denies jaundice, pruritus Vitals: Vitals: Vital Signs Date Time Temp Pulse Resp B/P (MAP) Pulse Ox O2 Delivery O2 Flow Rate FiO2 09/12/17 07:30 97.9 78 18 132/74 (93) 95 Room Air 97.9 Labs: Labs: Laboratory Tests Test 09/11/17 19:20 09/11/17 19:45 09/11/17 19:52 09/11/17 20:25 Urine Collection Type Unknown Urine Color Yellow Urine Clarity Clear Urine pH 6.5 Urine Specific [place] 1.015 Urine Protein Negative mg/dL (NEG-TRACE) Urine Glucose (UA) Negative mg/dL (NEG) Urine Ketones (Stick) Negative mg/dL (NEG) Urine Blood Negative (NEG) Urine Nitrite Negative (NEG) Urine Bilirubin Negative (NEG) Urine Urobilinogen Dipstick 0.2 mg/dL (0.2 mg/dL) Urine Leukocyte Esterase Moderate (NEG) Urine RBC 0 /HPF (0-2) Urine WBC 11-20 /HPF (0-4) Urine Squamous Epithelial Cells Mod /LPF Urine Bacteria Moderate /HPF (0-FEW) White Blood Count 5.7 x10^3/uL (4.0-11.0) Red Blood Count 4.21 x10^6/uL (3.50-5.40) Hemoglobin 8.4 g/dL (12.0-15.5) Hematocrit 27.3 % (36.0-47.0) Mean Corpuscular Volume 65 fL (79-100) Mean Corpuscular Hemoglobin 20 pg (25-35) Mean Corpuscular Hemoglobin Concent 31 g/dL (31-37) Red Cell Distribution Width 18.6 % (11.5-14.5) Platelet Count 240 x10^3/uL (140-400) Neutrophils (%) (Auto) 58 % (31-73) Lymphocytes (%) (Auto) 26 % (24-48) Monocytes (%) (Auto) 11 % (0-9) Eosinophils (%) (Auto) 5 % (0-3) Basophils (%) (Auto) 1 % (0-3) Neutrophils # (Auto) 3.3 x10^3uL (1.8-7.7) Lymphocytes # (Auto) 1.5 x10^3/uL (1.0-4.8) Monocytes # (Auto) 0.6 x10^3/uL (0.0-1.1) Eosinophils # (Auto) 0.3 x10^3/uL (0.0-0.7) Basophils # (Auto) 0.0 x10^3/uL (0.0-0.2) Platelet Estimate Adequate (ADEQUATE) Hypochromasia Marked Poikilocytosis Slight Anisocytosis Slight Microcytosis Marked Prothrombin Time 13.3 SEC (11.7-14.0) Prothromb Time International Ratio 1.1 (0.8-1.1) Activated Partial Thromboplast Time 28 SEC (24-38) Sodium Level 140 mmol/L (136-145) Potassium Level 4.4 mmol/L (3.5-5.1) Chloride Level 103 mmol/L (98-107) Carbon Dioxide Level 26 mmol/L (21-32) Anion Gap 11 (6-14) Blood Urea Nitrogen 8 mg/dL (7-20) Creatinine 0.8 mg/dL (0.6-1.0) Estimated GFR (Cockcroft-Gault) 73.7 BUN/Creatinine Ratio 10 (6-20) Glucose Level 95 mg/dL (70-99) Calcium Level 8.5 mg/dL (8.5-10.1) Total Bilirubin 0.2 mg/dL (0.2-1.0) Aspartate Amino Transf (AST/SGOT) 10 U/L (15-37) Alanine Aminotransferase (ALT/SGPT) 13 U/L (14-59) Alkaline Phosphatase 177 U/L (46-116) Troponin I Quantitative < 0.017 ng/mL (0.000-0.055) Total Protein 6.7 g/dL (6.4-8.2) Albumin 3.6 g/dL (3.4-5.0) Albumin/Globulin Ratio 1.2 (1.0-1.7) Lipase 106 U/L (73-393) Stool Occult Blood Negative (NEG) Lactic Acid Level 1.0 mmol/L (0.4-2.0) Test 09/11/17 22:24 09/12/17 04:15 Hemoglobin 8.5 g/dL (12.0-15.5) 8.9 g/dL (12.0-15.5) Hematocrit 27.5 % (36.0-47.0) 28.8 % (36.0-47.0) Mean Corpuscular Hemoglobin Concent 31 g/dL (31-37) 31 g/dL (31-37) White Blood Count 5.9 x10^3/uL (4.0-11.0) Red Blood Count 4.33 x10^6/uL (3.50-5.40) Mean Corpuscular Volume 67 fL (79-100) Mean Corpuscular Hemoglobin 21 pg (25-35) Red Cell Distribution Width 19.3 % (11.5-14.5) Platelet Count 212 x10^3/uL (140-400) Neutrophils (%) (Auto) 54 % (31-73) Lymphocytes (%) (Auto) 27 % (24-48) Monocytes (%) (Auto) 12 % (0-9) Eosinophils (%) (Auto) 7 % (0-3) Basophils (%) (Auto) 1 % (0-3) Neutrophils # (Auto) 3.2 x10^3uL (1.8-7.7) Lymphocytes # (Auto) 1.6 x10^3/uL (1.0-4.8) Monocytes # (Auto) 0.7 x10^3/uL (0.0-1.1) Eosinophils # (Auto) 0.4 x10^3/uL (0.0-0.7) Basophils # (Auto) 0.0 x10^3/uL (0.0-0.2) Reticulocyte Count (auto) 1.3 % (0.5-2.5) Sodium Level 142 mmol/L (136-145) Potassium Level 4.3 mmol/L (3.5-5.1) Chloride Level 106 mmol/L (98-107) Carbon Dioxide Level 26 mmol/L (21-32) Anion Gap 10 (6-14) Blood Urea Nitrogen 10 mg/dL (7-20) Creatinine 0.7 mg/dL (0.6-1.0) Estimated GFR (Cockcroft-Gault) 85.9 Glucose Level 87 mg/dL (70-99) Calcium Level 8.1 mg/dL (8.5-10.1) Iron Level 56 ug/dL (50-170) Total Iron Binding Capacity 422 ug/dL (250-450) Iron Saturation 13 % (15-34) Troponin I Quantitative < 0.017 ng/mL (0.000-0.055) Allergies: Coded Allergies: I S O L A T I O N *CONTACT* (Verified Allergy, Intermediate, SEVERE, ) guaifenesin (Verified Allergy, Intermediate, 11/26/15) meperidine (Verified Allergy, Intermediate, 11/26/15) Medications: Current Medications Medications (Trade) Dose Ordered Sig/Akil Route PRN Reason Start Time Stop Time Status Last Admin Dose Admin Ondansetron HCl (Zofran) 4 mg 1X ONCE IV 09/11/17 19:30 09/11/17 20:01 DC 09/11/17 20:16 Morphine Sulfate 4 mg PRN Q15MIN PRN IV/SQ PAIN GREATER THAN 3/10 09/11/17 20:15 09/12/17 01:00 DC 09/11/17 23:33 Sodium Chloride 1,000 ml @ 1,000 mls/hr 1X ONCE IV 09/11/17 20:15 09/11/17 21:14 DC 09/11/17 20:19 Iohexol (Omnipaque 300 Mg/ml) 75 ml 1X ONCE IV 09/11/17 20:30 09/11/17 20:31 DC 09/11/17 21:01 Morphine Sulfate 2 mg PRN Q4HRS PRN IV SEVERE PAIN 09/12/17 00:45 09/12/17 02:06 Imaging: Imaging: CT A/P w/ IV contrast Findings: Liver: Unremarkable Spleen: Mildly enlarged Pancreas: Unremarkable Adrenal Glands: Unremarkable Kidneys: Unremarkable There is no mass or lymphadenopathy. There is no free air. There is no free fluid. The urinary bladder appears normal. There is no free fluid. There is no lymphadenopathy. The appendix is not well seen. There is old pelvic fractures seen previously. Impression: Mild splenomegaly. PE: GEN: NAD, eating pancakes HEENT: Atraumatic, PERRL LUNGS: CTAB HEART: RRR ABD: NABS, S/ND/NT EXTREMITY: No edema SKIN: No rashes, no jaundice NEURO/PSYCH: A & O 3 A/P: A/P: Dark stool, lower abd discomfort -occurred once yesterday followed by a mucousy stool, associated w/ abd discomfort -CT unrevealing except mild splenomegaly Decreased appetite, weight loss, dentition issues -plans to see oral surgeon in Oct 2017 Anemia, fecal occult negative -h/o anemia previously on iron and B12, stopped because her Hgb was normal -extensive GI workup per HPI (upper and lower GI biopsies negative for pathology ) H/o GERD and diarrhea -Pepcid and Imodium PRN + probiotics -additional h/o C Diff S/p gastric sleeve and cholecystectomy -- D/w Dr. Sanz - anemia parameters ordered. Reviewed w/ Dr. Molina - anemia possibly related to post-surgical anatomy. Rec resuming iron and B12. Will add PPI. Ideally would avoid NSAIDs, defer arthritis pain management to primary. BRIELLE THOMAS Sep 12, 2017 09:16
[2017-09-12 10:08] LABS: FOLATE 6.99 ng/ml (3.2-20.0)
[2017-09-12] MEDS ORDERED: IRON SUCROSE COMPLEX 500 MG in IV NORMAL SALINE 250ML 250 ML IV ONE (14:00)
[2017-09-12] MEDS: CYANOCOBALAMIN (VITAMIN B-12) 1,000 MCG/ML VIAL IM SCH (14:22)
--- NOTE | 2017-09-12 14:41 | PDOC ---
Provider Note Provider Note Hem-Onc consult 1. Iron def - ordered venofer. consult GI 2. B12 def - ordered B12 See dictation LASHAWN CLAYTON MD Sep 12, 2017 14:40
[2017-09-12] MEDS ORDERED: ACETAMINOPHEN 500 MG TABLET PO PRN (17:00)
[2017-09-12] MEDS ORDERED: clonazePAM 0.5 MG TABLET PO SCH (18:00)
[2017-09-12] MEDS ORDERED: clonazePAM 0.5 MG TABLET PO PRN (18:00)
[2017-09-12] MEDS: GABAPENTIN 300 MG CAPSULE. PO SCH (18:14)
--- NOTE | 2017-09-12 19:08 | PDOC1 ---
History and Physical Date of Admission Date of Admission DATE: 09/12/17 TIME: 19:02 Identification/Chief Complaint Chief Complaint Black and tarry stools Problems: History of Present Illness History of Present Illness This patient is a 57-year-old lady that has a known history of obesity and has had previous gastric surgeries for weight loss. She also has a known history of iron deficiency anemia and has had previous GI workups. The patient has been feeling poorly and has been very tired for several days and then she started having yesterday several bowel movements that were black and tarry stools mostly liquid stools. This brought the patient to the emergency room where she was seen and evaluated and it was decided to admit her for further workup and treatment. At the time that I saw the patient she denies having any chest pains, denies any palpitations, she denies any loss of consciousness, no cardiac complaints. She did not have any nausea or vomiting. Past Medical History Cardiovascular: HTN Pulmonary: COPD CENTRAL NERVOUS SYSTEM: Seizure GI: GI bleed, Hemorrhoids, Other Heme/Onc: Anemia NOS, Iron deficiency Anemia, Other Hepatobiliary: No pertinent hx Psych: Anxiety, Depression Musculoskeletal: Other Renal/: No pertinent hx Endocrine: No pertinent hx Past Surgical History Past Surgical History: Pacemaker, Cholecystectomy, Mastectomy, Other Family History Family History: Hypertension Social History ALCOHOL: rare Drugs: None Current Problem List Problem List Problems Medical Problems: (1) Anemia Status: Acute Problems: Current Medications Current Medications Current Medications Ondansetron HCl (Zofran) 4 mg 1X ONCE IV Last administered on 09/11/17 20:16 ; Start 09/11/17 at 19:30; Stop 09/11/17 at 20:01; Status DC Morphine Sulfate 4 mg PRN Q15MIN PRN IV/SQ PAIN GREATER THAN 3/10 Last administered on 09/11/17 23:33; Start 09/11/17 at 20:15; Stop 09/12/17 at 01 :00; Status DC Sodium Chloride 1,000 ml @ 1,000 mls/hr 1X ONCE IV Last administered on 09/11 20:19; Start 09/11/17 at 20:15; Stop 09/11/17 at 21:14; Status DC Iohexol (Omnipaque 300 Mg/ml) 75 ml 1X ONCE IV Last administered on 21:01; Start 09/11/17 at 20:30; Stop 09/11/17 at 20:31; Status DC Info (Do NOT chart on this entry -- for MONITORING) 1 each PRN DAILY PRN MC SEE COMMENTS; Start 09/11/17 at 20:30; Stop 09/13/17 at 20:29 Ondansetron HCl (Zofran) 4 mg PRN Q8HRS PRN IV NAUSEA/VOMITING; Start at 23:00; Stop 09/12/17 at 22:59 Morphine Sulfate 2 mg PRN Q4HRS PRN IV SEVERE PAIN Last administered on 14:21; Start 09/12/17 at 00:45 Pantoprazole Sodium (Protonix) 40 mg DAILYAC PO ; Start 09/13/17 at 07:30 Iron Sucrose 500 mg/Sodium Chloride 275 ml @ 78.571 mls/ hr 1X ONCE IV Last administered on 09/12/17 14:21; Start 09/12/17 at 14:00; Stop 09/12/17 at 17 :29; Status DC Cyanocobalamin (Vitamin B-12) 1,000 mcg DAILY IM Last administered on 14:22; Start 09/12/17 at 13:15; Stop 09/18/17 at 08:59 Acetaminophen (Tylenol) 500 mg PRN Q4HRS PRN PO MILD PAIN / TEMP; Start at 17:00 Clonazepam (KlonoPIN) 0.5 mg Q6HRS PO ; Start 09/12/17 at 18:00; Stop at 18:00; Status DC Zolpidem Tartrate (Ambien) 10 mg QHS PO ; Start 09/12/17 at 21:00 Non-Formulary Medication 2 mg DAILY PO ; Start 09/13/17 at 09:00; Status UNV Gabapentin (Neurontin) 600 mg TID PO ; Start 09/12/17 at 21:00; Stop 09/12/17 at 21:00; Status DC Gabapentin (Neurontin) 1,200 mg HS PO ; Start 09/12/17 at 21:00 Clonazepam (KlonoPIN) 0.5 mg PRN Q6HRS PRN PO ANXIETY / AGITATION; Start 09/12 at 18:00 Gabapentin (Neurontin) 600 mg [id number] PO Last administered on 09/12/17t 18:14; Start 09/12/17 at 18:00 Active Scripts Active Reported Rexulti (Brexpiprazole) 2 Mg Tablet 2 Mg PO DAILY Gabapentin 600 Mg Tablet 1,200 Mg PO HS Gabapentin 300 Mg Capsule 600 Mg PO TID Clonazepam 0.5 Mg Tablet 1 Tab PO Q6HRS Tylenol Extra Strength (Acetaminophen) 500 Mg Tablet 500 Mg PO Zolpidem Tartrate 5 Mg Tablet 2 Tab PO QHS Allergies Allergies: Coded Allergies: I S O L A T I O N *CONTACT* (Verified Allergy, Intermediate, SEVERE, ) guaifenesin (Verified Allergy, Intermediate, 11/26/15) meperidine (Verified Allergy, Intermediate, 11/26/15) Physical Exam General: Alert, Oriented X3, Cooperative HEENT: Atraumatic, PERRLA, Other (oral mucosa dry) Lungs: Clear to auscultation Heart: S1S2, RRR, no murmurs Abdomen: Normal bowel sounds, Soft, No tenderness, No hepatosplenomegaly Extremities: No edema Psych/Mental Status: Mental status NL Vitals Vitals Vital Signs Date Time Temp Pulse Resp B/P (MAP) Pulse Ox O2 Delivery O2 Flow Rate FiO2 09/12/17 15:08 99.0 74 18 122/61 (81) 95 Room Air 99.0 Labs Labs Laboratory Tests Test 09/11/17 19:20 09/11/17 19:45 09/11/17 19:52 09/11/17 20:25 Urine Collection Type Unknown Urine Color Yellow Urine Clarity Clear Urine pH 6.5 Urine Specific [place] 1.015 Urine Protein Negative mg/dL (NEG-TRACE) Urine Glucose (UA) Negative mg/dL (NEG) Urine Ketones (Stick) Negative mg/dL (NEG) Urine Blood Negative (NEG) Urine Nitrite Negative (NEG) Urine Bilirubin Negative (NEG) Urine Urobilinogen Dipstick 0.2 mg/dL (0.2 mg/dL) Urine Leukocyte Esterase Moderate (NEG) Urine RBC 0 /HPF (0-2) Urine WBC 11-20 /HPF (0-4) Urine Squamous Epithelial Cells Mod /LPF Urine Bacteria Moderate /HPF (0-FEW) White Blood Count 5.7 x10^3/uL (4.0-11.0) Red Blood Count 4.21 x10^6/uL (3.50-5.40) Hemoglobin 8.4 g/dL (12.0-15.5) Hematocrit 27.3 % (36.0-47.0) Mean Corpuscular Volume 65 fL (79-100) Mean Corpuscular Hemoglobin 20 pg (25-35) Mean Corpuscular Hemoglobin Concent 31 g/dL (31-37) Red Cell Distribution Width 18.6 % (11.5-14.5) Platelet Count 240 x10^3/uL (140-400) Neutrophils (%) (Auto) 58 % (31-73) Lymphocytes (%) (Auto) 26 % (24-48) Monocytes (%) (Auto) 11 % (0-9) Eosinophils (%) (Auto) 5 % (0-3) Basophils (%) (Auto) 1 % (0-3) Neutrophils # (Auto) 3.3 x10^3uL (1.8-7.7) Lymphocytes # (Auto) 1.5 x10^3/uL (1.0-4.8) Monocytes # (Auto) 0.6 x10^3/uL (0.0-1.1) Eosinophils # (Auto) 0.3 x10^3/uL (0.0-0.7) Basophils # (Auto) 0.0 x10^3/uL (0.0-0.2) Platelet Estimate Adequate (ADEQUATE) Hypochromasia Marked Poikilocytosis Slight Anisocytosis Slight Microcytosis Marked Prothrombin Time 13.3 SEC (11.7-14.0) Prothromb Time International Ratio 1.1 (0.8-1.1) Activated Partial Thromboplast Time 28 SEC (24-38) Sodium Level 140 mmol/L (136-145) Potassium Level 4.4 mmol/L (3.5-5.1) Chloride Level 103 mmol/L (98-107) Carbon Dioxide Level 26 mmol/L (21-32) Anion Gap 11 (6-14) Blood Urea Nitrogen 8 mg/dL (7-20) Creatinine 0.8 mg/dL (0.6-1.0) Estimated GFR (Cockcroft-Gault) 73.7 BUN/Creatinine Ratio 10 (6-20) Glucose Level 95 mg/dL (70-99) Calcium Level 8.5 mg/dL (8.5-10.1) Total Bilirubin 0.2 mg/dL (0.2-1.0) Aspartate Amino Transf (AST/SGOT) 10 U/L (15-37) Alanine Aminotransferase (ALT/SGPT) 13 U/L (14-59) Alkaline Phosphatase 177 U/L (46-116) Troponin I Quantitative < 0.017 ng/mL (0.000-0.055) Total Protein 6.7 g/dL (6.4-8.2) Albumin 3.6 g/dL (3.4-5.0) Albumin/Globulin Ratio 1.2 (1.0-1.7) Lipase 106 U/L (73-393) Stool Occult Blood Negative (NEG) Lactic Acid Level 1.0 mmol/L (0.4-2.0) Test 09/11/17 22:24 09/12/17 04:15 09/12/17 10:50 Hemoglobin 8.5 g/dL (12.0-15.5) 8.9 g/dL (12.0-15.5) Hematocrit 27.5 % (36.0-47.0) 28.8 % (36.0-47.0) Mean Corpuscular Hemoglobin Concent 31 g/dL (31-37) 31 g/dL (31-37) White Blood Count 5.9 x10^3/uL (4.0-11.0) Red Blood Count 4.33 x10^6/uL (3.50-5.40) Mean Corpuscular Volume 67 fL (79-100) Mean Corpuscular Hemoglobin 21 pg (25-35) Red Cell Distribution Width 19.3 % (11.5-14.5) Platelet Count 212 x10^3/uL (140-400) Neutrophils (%) (Auto) 54 % (31-73) Lymphocytes (%) (Auto) 27 % (24-48) Monocytes (%) (Auto) 12 % (0-9) Eosinophils (%) (Auto) 7 % (0-3) Basophils (%) (Auto) 1 % (0-3) Neutrophils # (Auto) 3.2 x10^3uL (1.8-7.7) Lymphocytes # (Auto) 1.6 x10^3/uL (1.0-4.8) Monocytes # (Auto) 0.7 x10^3/uL (0.0-1.1) Eosinophils # (Auto) 0.4 x10^3/uL (0.0-0.7) Basophils # (Auto) 0.0 x10^3/uL (0.0-0.2) Reticulocyte Count (auto) 1.3 % (0.5-2.5) Sodium Level 142 mmol/L (136-145) Potassium Level 4.3 mmol/L (3.5-5.1) Chloride Level 106 mmol/L (98-107) Carbon Dioxide Level 26 mmol/L (21-32) Anion Gap 10 (6-14) Blood Urea Nitrogen 10 mg/dL (7-20) Creatinine 0.7 mg/dL (0.6-1.0) Estimated GFR (Cockcroft-Gault) 85.9 Glucose Level 87 mg/dL (70-99) Calcium Level 8.1 mg/dL (8.5-10.1) Iron Level 56 ug/dL (50-170) Total Iron Binding Capacity 422 ug/dL (250-450) Iron Saturation 13 % (15-34) Ferritin 3 ng/mL (8-252) Troponin I Quantitative < 0.017 ng/mL (0.000-0.055) < 0.017 ng/mL (0.000-0.055) Vitamin B12 Level 195 pg/mL (247-911) Serum Folate 6.99 ng/ml (3.2-20.0) Laboratory Tests Test 09/11/17 19:20 09/11/17 19:45 09/11/17 19:52 09/11/17 20:25 Urine Collection Type Unknown Urine Color Yellow Urine Clarity Clear Urine pH 6.5 Urine Specific [place] 1.015 Urine Protein Negative mg/dL (NEG-TRACE) Urine Glucose (UA) Negative mg/dL (NEG) Urine Ketones (Stick) Negative mg/dL (NEG) Urine Blood Negative (NEG) Urine Nitrite Negative (NEG) Urine Bilirubin Negative (NEG) Urine Urobilinogen Dipstick 0.2 mg/dL (0.2 mg/dL) Urine Leukocyte Esterase Moderate (NEG) Urine RBC 0 /HPF (0-2) Urine WBC 11-20 /HPF (0-4) Urine Squamous Epithelial Cells Mod /LPF Urine Bacteria Moderate /HPF (0-FEW) White Blood Count 5.7 x10^3/uL (4.0-11.0) Red Blood Count 4.21 x10^6/uL (3.50-5.40) Hemoglobin 8.4 g/dL (12.0-15.5) Hematocrit 27.3 % (36.0-47.0) Mean Corpuscular Volume 65 fL (79-100) Mean Corpuscular Hemoglobin 20 pg (25-35) Mean Corpuscular Hemoglobin Concent 31 g/dL (31-37) Red Cell Distribution Width 18.6 % (11.5-14.5) Platelet Count 240 x10^3/uL (140-400) Neutrophils (%) (Auto) 58 % (31-73) Lymphocytes (%) (Auto) 26 % (24-48) Monocytes (%) (Auto) 11 % (0-9) Eosinophils (%) (Auto) 5 % (0-3) Basophils (%) (Auto) 1 % (0-3) Neutrophils # (Auto) 3.3 x10^3uL (1.8-7.7) Lymphocytes # (Auto) 1.5 x10^3/uL (1.0-4.8) Monocytes # (Auto) 0.6 x10^3/uL (0.0-1.1) Eosinophils # (Auto) 0.3 x10^3/uL (0.0-0.7) Basophils # (Auto) 0.0 x10^3/uL (0.0-0.2) Platelet Estimate Adequate (ADEQUATE) Hypochromasia Marked Poikilocytosis Slight Anisocytosis Slight Microcytosis Marked Prothrombin Time 13.3 SEC (11.7-14.0) Prothromb Time International Ratio 1.1 (0.8-1.1) Activated Partial Thromboplast Time 28 SEC (24-38) Sodium Level 140 mmol/L (136-145) Potassium Level 4.4 mmol/L (3.5-5.1) Chloride Level 103 mmol/L (98-107) Carbon Dioxide Level 26 mmol/L (21-32) Anion Gap 11 (6-14) Blood Urea Nitrogen 8 mg/dL (7-20) Creatinine 0.8 mg/dL (0.6-1.0) Estimated GFR (Cockcroft-Gault) 73.7 BUN/Creatinine Ratio 10 (6-20) Glucose Level 95 mg/dL (70-99) Calcium Level 8.5 mg/dL (8.5-10.1) Total Bilirubin 0.2 mg/dL (0.2-1.0) Aspartate Amino Transf (AST/SGOT) 10 U/L (15-37) Alanine Aminotransferase (ALT/SGPT) 13 U/L (14-59) Alkaline Phosphatase 177 U/L (46-116) Troponin I Quantitative < 0.017 ng/mL (0.000-0.055) Total Protein 6.7 g/dL (6.4-8.2) Albumin 3.6 g/dL (3.4-5.0) Albumin/Globulin Ratio 1.2 (1.0-1.7) Lipase 106 U/L (73-393) Stool Occult Blood Negative (NEG) Lactic Acid Level 1.0 mmol/L (0.4-2.0) Test 09/11/17 22:24 09/12/17 04:15 09/12/17 10:50 Hemoglobin 8.5 g/dL (12.0-15.5) 8.9 g/dL (12.0-15.5) Hematocrit 27.5 % (36.0-47.0) 28.8 % (36.0-47.0) Mean Corpuscular Hemoglobin Concent 31 g/dL (31-37) 31 g/dL (31-37) White Blood Count 5.9 x10^3/uL (4.0-11.0) Red Blood Count 4.33 x10^6/uL (3.50-5.40) Mean Corpuscular Volume 67 fL (79-100) Mean Corpuscular Hemoglobin 21 pg (25-35) Red Cell Distribution Width 19.3 % (11.5-14.5) Platelet Count 212 x10^3/uL (140-400) Neutrophils (%) (Auto) 54 % (31-73) Lymphocytes (%) (Auto) 27 % (24-48) Monocytes (%) (Auto) 12 % (0-9) Eosinophils (%) (Auto) 7 % (0-3) Basophils (%) (Auto) 1 % (0-3) Neutrophils # (Auto) 3.2 x10^3uL (1.8-7.7) Lymphocytes # (Auto) 1.6 x10^3/uL (1.0-4.8) Monocytes # (Auto) 0.7 x10^3/uL (0.0-1.1) Eosinophils # (Auto) 0.4 x10^3/uL (0.0-0.7) Basophils # (Auto) 0.0 x10^3/uL (0.0-0.2) Reticulocyte Count (auto) 1.3 % (0.5-2.5) Sodium Level 142 mmol/L (136-145) Potassium Level 4.3 mmol/L (3.5-5.1) Chloride Level 106 mmol/L (98-107) Carbon Dioxide Level 26 mmol/L (21-32) Anion Gap 10 (6-14) Blood Urea Nitrogen 10 mg/dL (7-20) Creatinine 0.7 mg/dL (0.6-1.0) Estimated GFR (Cockcroft-Gault) 85.9 Glucose Level 87 mg/dL (70-99) Calcium Level 8.1 mg/dL (8.5-10.1) Iron Level 56 ug/dL (50-170) Total Iron Binding Capacity 422 ug/dL (250-450) Iron Saturation 13 % (15-34) Ferritin 3 ng/mL (8-252) Troponin I Quantitative < 0.017 ng/mL (0.000-0.055) < 0.017 ng/mL (0.000-0.055) Vitamin B12 Level 195 pg/mL (247-911) Serum Folate 6.99 ng/ml (3.2-20.0) VTE Prophylaxis Ordered VTE Prophylaxis Devices: Yes VTE Pharmacological Prophylaxi: No Assessment/Plan Assessment/Plan This patient with a previous history of a GI bleed and iron deficiency anemia comes in with a possible GI bleed were going to consult GI to evaluate the patient and also consult hematology because of her history. Depending on the recommendations will then decide about further workup and treatment. MEERA RIGGS MD Sep 12, 2017 19:08
[2017-09-12] MEDS: clonazePAM 0.5 MG TABLET PO SCH ×2 (19:17→20:53)
[2017-09-12] MEDS: HYDROcodone/APAP 5/325MG 1 TAB TABLET PO PRN (20:53)
[2017-09-12] MEDS ORDERED: GABAPENTIN 300 MG CAPSULE. PO SCH (21:00)
[2017-09-12] MEDS ORDERED: GABAPENTIN 400 MG CAPSULE. PO SCH (21:00)
[2017-09-12] MEDS ORDERED: ZOLPIDEM 5 MG TABLET. PO SCH (21:00)
--- NOTE | 2017-09-12 21:56 | CONS ---
DATE OF CONSULTATION: 09/12/2017 REQUESTING PHYSICIAN: Jerel Izaguirre MD REASON FOR CONSULTATION: Iron deficiency anemia. HISTORY OF PRESENTING ILLNESS: The patient is a 57-year-old female who has a history of iron deficiency anemia since 2013. She had black stools and bloody stools in 2014. She has had endoscopy and colonoscopy in the past. She has also had a capsule endoscopy in the past. She has a history of gastric sleeve surgery many years ago. Her hemoglobin was noted to be only 8.8 on 10/16/2015 with MCV of 79 and hence I had seen her for consultation at that time. She received IV iron supplementation with Venofer in 11/2015 and again in April and 05/2016. She received Injectafer in 11/2016 because of persistent iron deficiency. She came to the Emergency Room on 09/11/2017 with complaints of black stools with probable blood in it. Her hemoglobin was noted to be at 8.4 with MCV of 65 on 09/11/2017 and hence I was consulted. GI has also been consulted. PAST MEDICAL HISTORY: Anxiety, depression, alopecia, arthritis, sleep apnea, anemia, COPD, C. diff, gastric sleeve surgery, tonsillectomy, cholecystectomy. FAMILY HISTORY: Positive for coronary artery disease, diabetes mellitus, hypertension. SOCIAL HISTORY: No smoking or alcohol abuse. REVIEW OF SYSTEMS: A 12-point review of system was performed. Pertinent positives are mentioned in the history of presenting illness. Rest of the system review is negative. PHYSICAL EXAMINATION: GENERAL APPEARANCE: The patient is a 57-year-old female who is in no acute cardiorespiratory distress. VITAL SIGNS: Blood pressure 132/74, temperature 97.9. HEENT: Head atraumatic, normocephalic. Eyes: No icterus. NECK: Supple. CHEST: Bilaterally symmetrical. HEART: S1, S2 normal. ABDOMEN: Soft, nontender. CENTRAL NERVOUS SYSTEM: No focal deficits. LYMPHATICS: No lymphadenopathy. SKIN: No rashes. PSYCHOLOGIC: Mood and affect are appropriate. MUSCULOSKELETAL: No joint effusions. LABORATORY DATA: From 09/12/2017, WBC 5.9, hemoglobin 8.9, MCV 67, platelet count 212, reticulocyte count is 1.3. Iron 56, TIBC 422, iron saturation 13, ferritin 3, B12 of 195, folic acid 6.99. IMPRESSION AND PLAN: 1. Iron deficiency anemia likely due to poor absorption of iron from history of gastric sleeve surgery. Her ferritin is only 3 on 09/12/2017. She has received IV iron in 2016 and 2017. I will proceed with Venofer 500 mg IV on 09/12/2017. I have advised her to follow up with me upon discharge for continued monitoring of CBC and iron supplementation as needed. I discussed with Gastroenterology. I appreciate Gastroenterology consultation as the patient has been complaining of black stools. Further workup per Gastroenterology. 2. B12 deficiency. B12 is only 195 on 09/12/2017. This is again due to poor absorption from gastric sleeve surgery. I will start her on vitamin B12 1000 mcg intramuscularly daily for 5-7 days and then she can follow up as outpatient for injections at least once a month. 3. Gastrointestinal bleed. The patient has black stools. Consult Gastroenterology. LASHAWN CLAYTON MD DR: ANAHI/jaime JOB#: [id number] / [id number] TRAY
[2017-09-13 03:00] VITALS: BP 140/70
[2017-09-13] MEDS: GABAPENTIN 300 MG CAPSULE. PO SCH ×2 (06:03→12:51)
[2017-09-13] MEDS: HYDROcodone/APAP 5/325MG 1 TAB TABLET PO PRN ×2 (06:03→11:29)
[2017-09-13 07:00] VITALS: BP 118/56
[2017-09-13] MEDS ORDERED: PANTOPRAZOLE 40 MG TABLET.DR. PO SCH (07:30)
[2017-09-13] MEDS: CYANOCOBALAMIN (VITAMIN B-12) 1,000 MCG/ML VIAL IM SCH (08:13)
[2017-09-13] MEDS: clonazePAM 0.5 MG TABLET PO SCH ×2 (08:14→12:51)
[2017-09-13] MEDS ORDERED: NON FORMULARY ITEM (Brexpiprazole (Rexulti) 2 MG) PO SCH (09:00)
--- NOTE | 2017-09-13 09:24 | PDOC ---
PROGRESS NOTES Subjective Subjective HPI - Iron deficiency anemia ROS - no bleed Objective Objective Vital Signs Date Time Temp Pulse Resp B/P (MAP) Pulse Ox O2 Delivery O2 Flow Rate FiO2 09/13/17 07:03 20 92 Room Air 09/13/17 07:00 97.8 72 118/56 (76) 97.8 Intake and Output 09/13/17 07:00 Intake Total 1296 ml Balance 1296 ml Intake Oral 1046 ml IV Total 250 ml # Voids 5 # Bowel Movements 1 Physical Exam Heart: Normal S1, Normal S2 General: Alert, Oriented X3, No acute distress Lungs: Clear to auscultation Neuro: Normal speech Psych/Mental Status: Mental status NL Assessment Assessment Problems Medical Problems: (1) Anemia Status: Acute IMPRESSION AND PLAN: 1. Iron deficiency anemia likely due to poor absorption of iron from history of gastric sleeve surgery. Her ferritin is only 3 on 09/12/2017. She has received IV iron in 2015 and 2016. s/p Venofer 500 mg IV on 09/12/2017. I have advised her to follow up with me upon discharge for continued monitoring of CBC and iron supplementation as needed. I discussed with Gastroenterology. I appreciate Gastroenterology consultation as the patient has been complaining of black stools. Further workup per Gastroenterology. 2. B12 deficiency. B12 is only 195 on 09/12/2017. This is again due to poor absorption from gastric sleeve surgery. I will start her on vitamin B12 1000 mcg intramuscularly daily for 5-7 days and then she can follow up as outpatient for injections at least once a month. 3. Gastrointestinal bleed. The patient has black stools. Appreciate consult by Gastroenterology. Comment Review of Relevant I have reviewed the following items danny (where applicable) has been applied. Labs Laboratory Tests Test 09/11/17 19:20 09/11/17 19:45 09/11/17 19:52 09/11/17 20:25 Urine Collection Type Unknown Urine Color Yellow Urine Clarity Clear Urine pH 6.5 Urine Specific [place] 1.015 Urine Protein Negative mg/dL (NEG-TRACE) Urine Glucose (UA) Negative mg/dL (NEG) Urine Ketones (Stick) Negative mg/dL (NEG) Urine Blood Negative (NEG) Urine Nitrite Negative (NEG) Urine Bilirubin Negative (NEG) Urine Urobilinogen Dipstick 0.2 mg/dL (0.2 mg/dL) Urine Leukocyte Esterase Moderate (NEG) Urine RBC 0 /HPF (0-2) Urine WBC 11-20 /HPF (0-4) Urine Squamous Epithelial Cells Mod /LPF Urine Bacteria Moderate /HPF (0-FEW) White Blood Count 5.7 x10^3/uL (4.0-11.0) Red Blood Count 4.21 x10^6/uL (3.50-5.40) Hemoglobin 8.4 g/dL (12.0-15.5) Hematocrit 27.3 % (36.0-47.0) Mean Corpuscular Volume 65 fL (79-100) Mean Corpuscular Hemoglobin 20 pg (25-35) Mean Corpuscular Hemoglobin Concent 31 g/dL (31-37) Red Cell Distribution Width 18.6 % (11.5-14.5) Platelet Count 240 x10^3/uL (140-400) Neutrophils (%) (Auto) 58 % (31-73) Lymphocytes (%) (Auto) 26 % (24-48) Monocytes (%) (Auto) 11 % (0-9) Eosinophils (%) (Auto) 5 % (0-3) Basophils (%) (Auto) 1 % (0-3) Neutrophils # (Auto) 3.3 x10^3uL (1.8-7.7) Lymphocytes # (Auto) 1.5 x10^3/uL (1.0-4.8) Monocytes # (Auto) 0.6 x10^3/uL (0.0-1.1) Eosinophils # (Auto) 0.3 x10^3/uL (0.0-0.7) Basophils # (Auto) 0.0 x10^3/uL (0.0-0.2) Platelet Estimate Adequate (ADEQUATE) Hypochromasia Marked Poikilocytosis Slight Anisocytosis Slight Microcytosis Marked Prothrombin Time 13.3 SEC (11.7-14.0) Prothromb Time International Ratio 1.1 (0.8-1.1) Activated Partial Thromboplast Time 28 SEC (24-38) Sodium Level 140 mmol/L (136-145) Potassium Level 4.4 mmol/L (3.5-5.1) Chloride Level 103 mmol/L (98-107) Carbon Dioxide Level 26 mmol/L (21-32) Anion Gap 11 (6-14) Blood Urea Nitrogen 8 mg/dL (7-20) Creatinine 0.8 mg/dL (0.6-1.0) Estimated GFR (Cockcroft-Gault) 73.7 BUN/Creatinine Ratio 10 (6-20) Glucose Level 95 mg/dL (70-99) Calcium Level 8.5 mg/dL (8.5-10.1) Total Bilirubin 0.2 mg/dL (0.2-1.0) Aspartate Amino Transf (AST/SGOT) 10 U/L (15-37) Alanine Aminotransferase (ALT/SGPT) 13 U/L (14-59) Alkaline Phosphatase 177 U/L (46-116) Troponin I Quantitative < 0.017 ng/mL (0.000-0.055) Total Protein 6.7 g/dL (6.4-8.2) Albumin 3.6 g/dL (3.4-5.0) Albumin/Globulin Ratio 1.2 (1.0-1.7) Lipase 106 U/L (73-393) Stool Occult Blood Negative (NEG) Lactic Acid Level 1.0 mmol/L (0.4-2.0) Test 09/11/17 22:24 09/12/17 04:15 09/12/17 10:50 Hemoglobin 8.5 g/dL (12.0-15.5) 8.9 g/dL (12.0-15.5) Hematocrit 27.5 % (36.0-47.0) 28.8 % (36.0-47.0) Mean Corpuscular Hemoglobin Concent 31 g/dL (31-37) 31 g/dL (31-37) White Blood Count 5.9 x10^3/uL (4.0-11.0) Red Blood Count 4.33 x10^6/uL (3.50-5.40) Mean Corpuscular Volume 67 fL (79-100) Mean Corpuscular Hemoglobin 21 pg (25-35) Red Cell Distribution Width 19.3 % (11.5-14.5) Platelet Count 212 x10^3/uL (140-400) Neutrophils (%) (Auto) 54 % (31-73) Lymphocytes (%) (Auto) 27 % (24-48) Monocytes (%) (Auto) 12 % (0-9) Eosinophils (%) (Auto) 7 % (0-3) Basophils (%) (Auto) 1 % (0-3) Neutrophils # (Auto) 3.2 x10^3uL (1.8-7.7) Lymphocytes # (Auto) 1.6 x10^3/uL (1.0-4.8) Monocytes # (Auto) 0.7 x10^3/uL (0.0-1.1) Eosinophils # (Auto) 0.4 x10^3/uL (0.0-0.7) Basophils # (Auto) 0.0 x10^3/uL (0.0-0.2) Reticulocyte Count (auto) 1.3 % (0.5-2.5) Sodium Level 142 mmol/L (136-145) Potassium Level 4.3 mmol/L (3.5-5.1) Chloride Level 106 mmol/L (98-107) Carbon Dioxide Level 26 mmol/L (21-32) Anion Gap 10 (6-14) Blood Urea Nitrogen 10 mg/dL (7-20) Creatinine 0.7 mg/dL (0.6-1.0) Estimated GFR (Cockcroft-Gault) 85.9 Glucose Level 87 mg/dL (70-99) Calcium Level 8.1 mg/dL (8.5-10.1) Iron Level 56 ug/dL (50-170) Total Iron Binding Capacity 422 ug/dL (250-450) Iron Saturation 13 % (15-34) Ferritin 3 ng/mL (8-252) Troponin I Quantitative < 0.017 ng/mL (0.000-0.055) < 0.017 ng/mL (0.000-0.055) Vitamin B12 Level 195 pg/mL (247-911) Serum Folate 6.99 ng/ml (3.2-20.0) Laboratory Tests Test 09/12/17 10:50 Troponin I Quantitative < 0.017 ng/mL (0.000-0.055) Microbiology 09/11/17 Urine Culture - Preliminary, Resulted 09/11/17 Urine Culture Result 1 (LUIS) - Preliminary, Resulted Medications Current Medications Ondansetron HCl (Zofran) 4 mg 1X ONCE IV Last administered on 09/11/17t 20:16 ; Start 09/11/17 at 19:30; Stop 09/11/17 at 20:01; Status DC Morphine Sulfate 4 mg PRN Q15MIN PRN IV/SQ PAIN GREATER THAN 3/10 Last administered on 09/11/17 23:33; Start 09/11/17 at 20:15; Stop 09/12/17 at 01 :00; Status DC Sodium Chloride 1,000 ml @ 1,000 mls/hr 1X ONCE IV Last administered on 09/11 20:19; Start 09/11/17 at 20:15; Stop 09/11/17 at 21:14; Status DC Iohexol (Omnipaque 300 Mg/ml) 75 ml 1X ONCE IV Last administered on 21:01; Start 09/11/17 at 20:30; Stop 09/11/17 at 20:31; Status DC Info (Do NOT chart on this entry -- for MONITORING) 1 each PRN DAILY PRN MC SEE COMMENTS; Start 09/11/17 at 20:30; Stop 09/13/17 at 20:29 Ondansetron HCl (Zofran) 4 mg PRN Q8HRS PRN IV NAUSEA/VOMITING; Start at 23:00; Stop 09/12/17 at 22:59; Status DC Morphine Sulfate 2 mg PRN Q4HRS PRN IV SEVERE PAIN Last administered on 14:21; Start 09/12/17 at 00:45 Pantoprazole Sodium (Protonix) 40 mg DAILYAC PO Last administered on 08:12; Start 09/13/17 at 07:30 Iron Sucrose 500 mg/Sodium Chloride 275 ml @ 78.571 mls/ hr 1X ONCE IV Last administered on 09/12/17 14:21; Start 09/12/17 at 14:00; Stop 09/12/17 at 17 :29; Status DC Cyanocobalamin (Vitamin B-12) 1,000 mcg DAILY IM Last administered on 08:13; Start 09/12/17 at 13:15; Stop 09/18/17 at 08:59 Acetaminophen (Tylenol) 500 mg PRN Q4HRS PRN PO MILD PAIN / TEMP; Start at 17:00 Clonazepam (KlonoPIN) 0.5 mg Q6HRS PO ; Start 09/12/17 at 18:00; Stop at 18:00; Status DC Zolpidem Tartrate (Ambien) 10 mg QHS PO Last administered on 09/12/17 20:53; Start 09/12/17 at 21:00 Non-Formulary Medication 2 mg DAILY PO ; Start 09/13/17 at 09:00; Status UNV Gabapentin (Neurontin) 600 mg TID PO ; Start 09/12/17 at 21:00; Stop 09/12/17 at 21:00; Status DC Gabapentin (Neurontin) 1,200 mg HS PO Last administered on 09/12/17 20:53; Start 09/12/17 at 21:00 Clonazepam (KlonoPIN) 0.5 mg PRN Q6HRS PRN PO ANXIETY / AGITATION; Start 09/12 at 18:00; Stop 09/12/17 at 19:07; Status DC Gabapentin (Neurontin) 600 mg [id number] PO Last administered on 09/13/17 06:03; Start 09/12/17 at 18:00 Clonazepam (KlonoPIN) 0.5 mg QID PO Last administered on 09/13/17 08:14; Start 09/12/17 at 17:30 Acetaminophen/ Hydrocodone Bitart (Lortab 5/325) 1 tab PRN Q4HRS PRN PO PAIN Last administered on 09/13/17 06:03; Start 09/12/17 at 19:15 Active Scripts Active Reported Rexulti (Brexpiprazole) 2 Mg Tablet 2 Mg PO DAILY Gabapentin 600 Mg Tablet 1,200 Mg PO HS Gabapentin 300 Mg Capsule 600 Mg PO TID Clonazepam 0.5 Mg Tablet 1 Tab PO Q6HRS Tylenol Extra Strength (Acetaminophen) 500 Mg Tablet 500 Mg PO Zolpidem Tartrate 5 Mg Tablet 2 Tab PO QHS Vitals/I & O Vital Sign - Last 24 Hours 09/12/17 09/12/17 09/12/17 09/12/17 10:28 11:15 14:21 14:55 Temp 98.1 98.1 Pulse 68 Resp 18 B/P (MAP) 128/62 (84) Pulse Ox 95 O2 Delivery Room Air Room Air Room Air Room Air 12/1209/12/17 09/12/17 09/12/17 15:08 19:00 19:54 20:53 Temp 99.0 98.4 99.0 98.4 Pulse 74 67 Resp 18 18 B/P (MAP) 122/61 (81) 132/62 (85) Pulse Ox 95 92 95 O2 Delivery Room Air Room Air Room Air Room Air 09/12/17 09/13/17 09/13/17 09/13/17 23:00 03:00 06:03 07:00 Temp 98.6 98.6 97.8 98.6 98.6 97.8 Pulse 73 71 72 Resp 18 18 20 B/P (MAP) 115/56 (75) 140/70 (93) 118/56 (76) Pulse Ox 92 92 92 90 O2 Delivery Room Air Room Air Room Air Room Air 09/13/17 07:03 Resp 20 Pulse Ox 92 O2 Delivery Room Air Intake and Output 09/12/17 09/12/17 09/13/17 15:00 23:00 07:00 Intake Total 150 ml 666 ml 480 ml Balance 150 ml 666 ml 480 ml LASHAWN CLAYTON MD Sep 13, 2017 09:24
[2017-09-13 10:34] VITALS: BP 121/54
[2017-09-13] MEDS ORDERED: NYSTATIN TOPICAL POWDER 15GM BOTTLE. TP SCH (11:00)
--- NOTE | 2017-09-13 11:27 | PDOC ---
Subjective: Subjective: In restroom, talked through door. No abd pain, no dark stools. Tolerating PO, says going home today. Objective: Vital Signs: Vital Signs Date Time Temp Pulse Resp B/P (MAP) Pulse Ox O2 Delivery O2 Flow Rate FiO2 09/13/17 10:34 97.8 74 20 121/54 (76) 90 Room Air 97.8 PE: GEN: in restroom NEURO/PSYCH: A & O 3 A/P: Dark stool, lower abd discomfort - resolved Anemia, iron and B12 deficiency, s/p gastric sleeve -extensive GI workup per consult note -restarted on iron and B12 per heme/onc -- DC per primary, continue iron and B12, follow-up w/ Dr. Sanz. BRIELLE THOMAS Sep 13, 2017 11:27
== END 2017-09-13 14:00 | disposition home or self-care (01) | DRG 378 ==
LOC: ER 19:03 → 5 NORTH 22:40 → UNDOADMIN 23:40 → 5 NORTH 23:40
PROVIDERS: ADMIT Internal Medicine Cardiovascular Disease; ATTEND Internal Medicine Cardiovascular Disease
PROC: 30233N1 Transfusion of Nonautologous Red Blood Cells into Peripheral Vein, Percutaneous Approach (ICD-10-PCS; principal; 2017-09-12)
DX: K92.2 Gastrointestinal hemorrhage, unspecified (principal); K90.9 Intestinal malabsorption, unspecified; D50.9 Iron deficiency anemia, unspecified; E53.8 Deficiency of other specified B group vitamins; G47.30 Sleep apnea, unspecified; I10 Essential (primary) hypertension; J44.9 Chronic obstructive pulmonary disease, unspecified; M19.90 Unspecified osteoarthritis, unspecified site; Z82.49 Family history of ischemic heart disease and other diseases of the circulatory system; Z83.3 Family history of diabetes mellitus; Z98.84 Bariatric surgery status; E66.9 Obesity, unspecified; Z68.34 Body mass index [BMI] 34.0-34.9, adult; F32.9 Major depressive disorder, single episode, unspecified; F41.9 Anxiety disorder, unspecified; K21.0 Gastro-esophageal reflux disease with esophagitis; Z90.49 Acquired absence of other specified parts of digestive tract; Z90.10 Acquired absence of unspecified breast and nipple; Z88.8 Allergy status to other drugs, medicaments and biological substances; K21.9 Gastro-esophageal reflux disease without esophagitis
CPT/HCPCS: 36415; 74177; 80048; 80053; 81001; 82274; 82607; 82728; 82746; 83540; 83550; 83605; 83690; 84484; 85014; 85018; 85025; 85045; 85610; 85730; 86850; 86900; 86901; 86920; 87086; 87186; 93005; 96361; 96374; 96375; 96376; J1756; J2270; J2405; J3420; J7030; J7050; P9016; Q9967; 99291-25

== ENCOUNTER 2018-03-01 13:27 | Emergency (ER) | payer BC, MEDICARE ==
[2018-03-01] MEDS: IV NORMAL SALINE 1000ML BAG 1,000 ML IV (13:52)
[2018-03-01] MEDS: fentaNYL PF VIAL 100 MCG/2 ML VIAL IV (14:00)
[2018-03-01 14:27] LABS: ADD MAN DIFF? NO
[2018-03-01 14:30] LABS: FECAL OB PT NEGATIVE (NEG); NEG OBC FOB NEG; POS OBC FOB POS
[2018-03-01 14:33] LABS: BASO % 1 % (0-3); EOS # 0.2 x10^3/uL (0.0-0.7); EOS % 3 % (0-3); HEMATOCRIT 40.9 % (36.0-47.0); HEMOGLOBIN 13.9 g/dL (12.0-15.5); LYMPH # 1.3 x10^3/uL (1.0-4.8); LYMPH % 19 % (24-48); MEAN CORPUSCULAR HEMOGLOBIN 31 pg (25-35); MEAN CORPUSCULAR HGB CONC 34 g/dL (31-37); MEAN CORPUSCULAR VOLUME 91 fL (79-100); MONO # 0.5 x10^3/uL (0.0-1.1); MONO % 8 % (0-9); NEUT # 4.8 x10^3uL (1.8-7.7); NEUT % 70 % (31-73); PLATELET COUNT 210 x10^3/uL (140-400); RED CELL DISTRIBUTION WIDTH 13.9 % (11.5-14.5); WHITE BLOOD COUNT 6.8 x10^3/uL (4.0-11.0)
[2018-03-01 14:42] LABS: INR 1.1 (0.8-1.1); PARTIAL THROMBOPLASTIN TIME 23 SEC (24-38); PROTHROMBIN TIME PATIENT 13.4 SEC (11.7-14.0)
[2018-03-01 14:44] LABS: BLOOD UREA NITROGEN 15 mg/dL (7-20); BUN/CREATININE RATIO 25 (6-20); CALCIUM 8.5 mg/dL (8.5-10.1); CREATININE 0.6 mg/dL (0.6-1.0); GLUCOSE 99 mg/dL (70-99)
[2018-03-01 14:45] LABS: ANION GAP 12 (6-14); CARBON DIOXIDE 27 mmol/L (21-32); CHLORIDE 104 mmol/L (98-107); GFR 102.3; POTASSIUM 3.6 mmol/L (3.5-5.1); SODIUM 143 mmol/L (136-145)
[2018-03-01 14:51] LABS: ALBUMIN 3.8 g/dL (3.4-5.0); ALBUMIN/GLOBULIN RATIO 1.2 (1.0-1.7); ALK PHOS 119 U/L (46-116); ALT (SGPT) 21 U/L (14-59); AST (SGOT) 16 U/L (15-37); LIPASE 70 U/L (73-393); TOTAL BILIRUBIN 0.4 mg/dL (0.2-1.0)
[2018-03-01] MEDS: IOHEXOL 300 MG/ML 100ML VIAL. IV (14:57)
[2018-03-01] MEDS ORDERED: CONTRAST GIVEN. MC (15:00)
== END 2018-03-01 15:54 | disposition home or self-care (01) ==
LOC: ER 13:27
DX: K92.1 Melena (principal); M19.90 Unspecified osteoarthritis, unspecified site; G89.29 Other chronic pain; F17.210 Nicotine dependence, cigarettes, uncomplicated; F32.9 Major depressive disorder, single episode, unspecified; I11.0 Hypertensive heart disease with heart failure; I50.9 Heart failure, unspecified; Z90.49 Acquired absence of other specified parts of digestive tract; Z88.8 Allergy status to other drugs, medicaments and biological substances; Z88.5 Allergy status to narcotic agent
CPT/HCPCS: 36415; 74177; 80053; 82274; 83690; 85025; 85610; 85730; 86850; 86900; 86901; 96361; 96374; 99285-25; J3010; J7030; Q9967

== ENCOUNTER → 2018-05-31 | Outpatient (CLI) | payer BC ==
[2018-03-01 13:56] VITALS: BP 157/72
[~2018-05-31] MED LIST changes: +BREX2TAB PO; +CLON0.5T11 PO; -CLON0.5T3 PO; -CLON1TAB3 PO; +CLON1TAB4 PO; -SPIR25TA3 PO; +SPIR25TA5 PO
[2018-05-31 10:02] LABS: ALBUMIN 3.1 g/dL (3.4-5.0); ALBUMIN/GLOBULIN RATIO 0.9 (1.0-1.7); CALCIUM 8.6 mg/dL (8.5-10.1); CREATININE 0.9 mg/dL (0.6-1.0); GFR 64.1; TOTAL BILIRUBIN 0.2 mg/dL (0.2-1.0); TOTAL PROTEIN 6.6 g/dL (6.4-8.2)
[2018-05-31 10:14] LABS: POTASSIUM 2.8 mmol/L (3.5-5.1)
== END | disposition home or self-care (01) ==
LOC: LAB 09:26
PROVIDERS: ATTEND Internal Medicine Cardiovascular Disease
DX: R60.0 Localized edema (principal); I11.0 Hypertensive heart disease with heart failure; I50.9 Heart failure, unspecified; J44.9 Chronic obstructive pulmonary disease, unspecified; K21.9 Gastro-esophageal reflux disease without esophagitis; Z88.0 Allergy status to penicillin; Z88.5 Allergy status to narcotic agent; Z88.6 Allergy status to analgesic agent; Z87.891 Personal history of nicotine dependence; Z85.3 Personal history of malignant neoplasm of breast; Z90.49 Acquired absence of other specified parts of digestive tract; Z90.13 Acquired absence of bilateral breasts and nipples; Z68.34 Body mass index [BMI] 34.0-34.9, adult; Z86.2 Personal history of diseases of the blood and blood-forming organs and certain disorders involving the immune mechanism; Z82.49 Family history of ischemic heart disease and other diseases of the circulatory system; Z83.3 Family history of diabetes mellitus; Z80.42 Family history of malignant neoplasm of prostate
CPT/HCPCS: 36415; 80053

== ENCOUNTER 2018-07-25 12:01 | Inpatient (IN) | payer BC, MEDICARE ==
[~2018-07-25] VITALS: Ht 165.1 cm; Wt 100.8 kg
[2018-07-25] MEDS ORDERED: FAMOTIDINE 20 MG/2 ML VIAL IVP ONE (12:30)
[2018-07-25] MEDS ORDERED: IV NORMAL SALINE 1000ML BAG 1,000 ML IV ONE ×3 (12:30→15:15)
[2018-07-25] MEDS ORDERED: ONDANSETRON PF 4 MG/2 ML VIAL. IV ONE (12:30)
[2018-07-25 12:41] LABS: BILIRUBIN,URINE NEGATIVE (NEG); CLARITY,URINE CLEAR; COLOR,URINE YELLOW; NITRITE,URINE NEGATIVE (NEG); PROTEIN,URINE NEGATIVE (NEG-TRACE); UROBILINOGEN,URINE 0.2 mg/dL (0.2 mg/dL)
[2018-07-25 12:51] LABS: BARBITURATES NEG (NEG); BENZODIAZEPINES NEG (NEG); CANNABINOIDS NEG (NEG); COCAINE NEG (NEG); METHADONE NEG (NEG); OPIATES NEG (NEG); PHENCYCLIDINE NEG (NEG)
[2018-07-25 12:54] LABS: AMPHETAMINE/METHAMPHETAMINE NEG (NEG)
[2018-07-25 12:56] LABS: BACTERIA,URINE 0 /HPF (0-FEW); RBC,URINE 0 /HPF (0-2)
[2018-07-25 12:57] LABS: HYALINE CASTS, URINE MANY /HPF; SQUAMOUS EPITHELIAL CELL,UR MANY /LPF
--- NOTE | 2018-07-25 13:02 | PHYS DOC ---
Past Medical History Past Medical History: Anemia, Arthritis, CHF, Depression, GI Bleed, Hypertension, Seizure Additional Past Medical Histor: diarrhea; "Carcinoma of back", chronic back pain Past Surgical History: Cholecystectomy, Tonsillectomy, Other Additional Past Surgical Histo: gastric sleeve sx, HERNIA Alcohol Use: Rarely Drug Use: None Adult General Chief Complaint Chief Complaint: WEAKNESS/GENERALIZED HPI HPI Patient is a 58 year old female with history of hypertension, GI bleed, anemia , CHF, depression, who presents today complaining of 7 out of 10 intermittent sharp left upper quadrant abdominal pain with nausea vomiting and diarrhea that began yesterday. Patient denies any hematemesis or melena. Patient is also complaining of intermittent episodes of dizziness. Unknown what is causing her dizziness. PCP Dr. Izaguirre Review of Systems Review of Systems Constitutional: Denies fever or chills [] Eyes: Denies change in visual acuity, redness, or eye pain [] HENT: Denies nasal congestion or sore throat [] Respiratory: Denies cough or shortness of breath [] Cardiovascular: No additional information not addressed in HPI [] GI: Reports left upper quadrant abdominal pain with nausea vomiting and diarrhea : Denies dysuria or hematuria [] Musculoskeletal: Denies back pain or joint pain [] Integument: Denies rash or skin lesions [] Neurologic: Reports dizziness. Denies headache, focal weakness or sensory changes [] All other systems were reviewed and found to be within normal limits, except as documented in this note. Current Medications Current Medications Current Medications Medications (Trade) Dose Ordered Sig/Akil Start Time Stop Time Status Last Admin Dose Admin Acetaminophen (Tylenol) 650 mg PRN Q4HRS PRN 07/25/18 15:15 Clonazepam (KlonoPIN) 0.5 mg 1X STAT 07/25/18 14:02 07/25/18 14:05 DC 07/25/18 14:13 0.5 MG Famotidine (Pepcid Vial) 20 mg 1X ONCE 07/25/18 12:30 07/25/18 12:33 DC 07/25/18 13:08 20 MG Gabapentin (Neurontin) 600 mg 1X STAT 07/25/18 14:02 07/25/18 14:05 DC 07/25/18 14:14 600 MG Ondansetron HCl (Zofran) 4 mg PRN Q4HRS PRN 07/25/18 15:15 Piperacillin Sod/ Tazobactam Sod 3.375 gm/Sodium Chloride 50 ml @ 100 mls/hr 1X ONCE 07/25/18 15:30 07/25/18 15:59 07/25/18 15:34 100 MLS/HR Sodium Chloride 1,000 ml @ 75 mls/hr 1X ONCE 07/25/18 15:15 07/26/18 04:34 Allergies Allergies Allergies Coded Allergies Type Severity Reaction Last Updated Verified guaifenesin Allergy Intermediate 11/26/15 Yes meperidine Allergy Intermediate 11/26/15 Yes Physical Exam Physical Exam Constitutional: Well developed, well nourished, no acute distress, non-toxic appearance. [] HENT: Normocephalic, atraumatic, bilateral external ears normal, oropharynx moist, no oral exudates, nose normal. [] Eyes: PERRLA, EOMI, conjunctiva normal, no discharge. [] Neck: Normal range of motion, no tenderness, supple, no stridor. [] Cardiovascular:Heart rate regular rhythm, no murmur [] Lungs & Thorax: Bilateral breath sounds clear to auscultation [] Abdomen: Bowel sounds normal, soft, no tenderness, no masses, no pulsatile masses. [] Skin: Warm, dry, no erythema, no rash. [] Back: No tenderness, no CVA tenderness. [] Extremities: No tenderness, no cyanosis, no clubbing, ROM intact, no edema. [] Neurologic: Alert and oriented X 3, normal motor function, normal sensory function, no focal deficits noted. Cranial nerves II through XII intact Psychologic: Affect normal, judgement normal, mood normal. [] Current Patient Data Vital Signs Vital Signs Date Time Temp Pulse Resp B/P (MAP) Pulse Ox O2 Delivery O2 Flow Rate FiO2 07/25/18 14:30 69 18 99 07/25/18 12:10 98.2 147/75 (99) Room Air 98.2 Lab Values Laboratory Tests Test 07/25/18 12:12 07/25/18 13:10 Urine Collection Type Unknown Urine Color Yellow Urine Clarity Clear Urine pH 6.0 Urine Specific [place] 1.025 Urine Protein Negative mg/dL (NEG-TRACE) Urine Glucose (UA) Negative mg/dL (NEG) Urine Ketones (Stick) Negative mg/dL (NEG) Urine Blood Negative (NEG) Urine Nitrite Negative (NEG) Urine Bilirubin Negative (NEG) Urine Urobilinogen Dipstick 0.2 mg/dL (0.2 mg/dL) Urine Leukocyte Esterase Moderate (NEG) Urine RBC 0 /HPF (0-2) Urine WBC 5-10 /HPF (0-4) Urine Squamous Epithelial Cells Many /LPF Urine Bacteria 0 /HPF (0-FEW) Urine Hyaline Casts Many /HPF Urine Mucus Mod /LPF Urine Opiates Screen Neg (NEG) Urine Methadone Screen Neg (NEG) Urine Barbiturates Neg (NEG) Urine Phencyclidine Screen Neg (NEG) Urine Amphetamine/Methamphetamine Neg (NEG) Urine Benzodiazepines Screen Neg (NEG) Urine Cocaine Screen Neg (NEG) Urine Cannabinoids Screen Neg (NEG) Urine Ethyl Alcohol Neg (NEG) White Blood Count 8.6 x10^3/uL (4.0-11.0) Red Blood Count 5.11 x10^6/uL (3.50-5.40) Hemoglobin 14.1 g/dL (12.0-15.5) Hematocrit 41.9 % (36.0-47.0) Mean Corpuscular Volume 82 fL (79-100) Mean Corpuscular Hemoglobin 28 pg (25-35) Mean Corpuscular Hemoglobin Concent 34 g/dL (31-37) Red Cell Distribution Width 16.4 % (11.5-14.5) H Platelet Count 247 x10^3/uL (140-400) Neutrophils (%) (Auto) 67 % (31-73) Lymphocytes (%) (Auto) 22 % (24-48) L Monocytes (%) (Auto) 8 % (0-9) Eosinophils (%) (Auto) 2 % (0-3) Basophils (%) (Auto) 1 % (0-3) Neutrophils # (Auto) 5.8 x10^3uL (1.8-7.7) Lymphocytes # (Auto) 1.9 x10^3/uL (1.0-4.8) Monocytes # (Auto) 0.7 x10^3/uL (0.0-1.1) Eosinophils # (Auto) 0.1 x10^3/uL (0.0-0.7) Basophils # (Auto) 0.1 x10^3/uL (0.0-0.2) Sodium Level 140 mmol/L (136-145) Potassium Level 4.1 mmol/L (3.5-5.1) Chloride Level 105 mmol/L (98-107) Carbon Dioxide Level 26 mmol/L (21-32) Anion Gap 9 (6-14) Blood Urea Nitrogen 21 mg/dL (7-20) H Creatinine 0.9 mg/dL (0.6-1.0) Estimated GFR (Cockcroft-Gault) 64.1 BUN/Creatinine Ratio 23 (6-20) H Glucose Level 91 mg/dL (70-99) Calcium Level 9.4 mg/dL (8.5-10.1) Total Bilirubin 0.3 mg/dL (0.2-1.0) Aspartate Amino Transferase (AST) 19 U/L (15-37) Alanine Aminotransferase (ALT) 33 U/L (14-59) Alkaline Phosphatase 124 U/L (46-116) H Troponin I Quantitative < 0.017 ng/mL (0.000-0.055) OM-Zzu-[id number]-Type Natriuretic Peptide 64 pg/mL (0-124) Total Protein 7.8 g/dL (6.4-8.2) Albumin 4.1 g/dL (3.4-5.0) Albumin/Globulin Ratio 1.1 (1.0-1.7) Lipase 85 U/L (73-393) Laboratory Tests 07/25/18 13:10 Laboratory Tests 07/25/18 13:10 EKG EKG 12:[address] Goodson sinus rhythm heart rate 75 no STEMI[] Radiology/Procedures Radiology/Procedures []PROCEDURE: PORTABLE CHEST 1V PORTABLE CHEST 1V Clinical Indication: DIZZINESS AND WEAKNESS Comparison: Two-view chest March 23, 2016. Findings: Atherosclerotic aortic arch. The cardiomediastinal silhouette is normal. Lungs are clear. There is no pneumothorax. No pleural effusion is appreciated. No acute bone abnormality. IMPRESSION: No acute cardiopulmonary process. Electronically signed by: Kaleb Sapp MD (07/25/2018 1:00 PM) [id number] DICTATED and SIGNED BY: KALEB SAPP MD DATE: 07/25/18 1259 Course & Med Decision Making Course & Med Decision Making Pertinent Labs and Imaging studies reviewed. (See chart for details) This is a 58-year-old female patient presenting to the ED today with complaints of nausea, vomiting, diarrhea, left upper quadrant abdominal pain and dizziness since yesterday. Dr. Izaguirre her PCP called and requested we order labs and IV fluids and GI consult and call him back with results. CBC with a normal WBC, CMP would not acute findings. Urine analysis is noted for infection though the urine appears infected. We will start patient on Zosyn while we wait for the urine culture. Patient was also started on IV fluids. Admitted under Dr. Izaguirre Dragon Disclaimer Dragon Disclaimer This electronic medical record was generated, in whole or in part, using a voice recognition dictation system. Departure Departure Impression: Primary Impression: Diarrhea Additional Impressions: Nausea and vomiting UTI (urinary tract infection) Disposition: ADMITTED INPATIENT Condition: STABLE Referrals: MEERA IZAGUIRRE MD (PCP) Problem Qualifiers Primary Impression: Diarrhea Diarrhea type: unspecified type Qualified Codes: R19.7 - Diarrhea, unspecified Additional Impressions: Nausea and vomiting Vomiting type: unspecified Vomiting Intractability: non-intractable Qualified Codes: R11.2 - Nausea with vomiting, unspecified UTI (urinary tract infection) Urinary tract infection type: site unspecified Hematuria presence: without hematuria Qualified Codes: N39.0 - Urinary tract infection, site not specified COLETTE KELLY APRN Jul 25, 2018 13:02
--- NOTE | 2018-07-25 13:03 | EKG ---
[facility] [address] [place] [address] Test Date: 2018-07-25 Test Time: 12:23:31 Pat Name: WILY CALDERON Department: Room: Gender: F Yard Pilot: : 1960 Requested By: COLETTE KELLY Order Number: [id number] Reading MD: Emiliano Little MD Measurements Intervals Grahn Rate: 77 P: 1 WV: 156 QRS: 93 QRSD: 94 T: 34 QT: 396 QTc: 450 Interpretive Statements SINUS RHYTHM NON-SPECIFIC ST/T CHANGES Electronically Signed On 07-26-2018 11:27:09 CDT by Emiliano Little MD
[2018-07-25 13:24] LABS: BASO # 0.1 x10^3/uL (0.0-0.2); BASO % 1 % (0-3); EOS # 0.1 x10^3/uL (0.0-0.7); EOS % 2 % (0-3); HEMATOCRIT 41.9 % (36.0-47.0); HEMOGLOBIN 14.1 g/dL (12.0-15.5); LYMPH # 1.9 x10^3/uL (1.0-4.8); LYMPH % 22 % (24-48); MEAN CORPUSCULAR HEMOGLOBIN 28 pg (25-35); MEAN CORPUSCULAR HGB CONC 34 g/dL (31-37); MEAN CORPUSCULAR VOLUME 82 fL (79-100); MONO # 0.7 x10^3/uL (0.0-1.1); MONO % 8 % (0-9); NEUT # 5.8 x10^3uL (1.8-7.7); NEUT % 67 % (31-73); PLATELET COUNT 247 x10^3/uL (140-400); RED BLOOD COUNT 5.11 x10^6/uL (3.50-5.40); RED CELL DISTRIBUTION WIDTH 16.4 % (11.5-14.5); WHITE BLOOD COUNT 8.6 x10^3/uL (4.0-11.0)
[2018-07-25 13:36] LABS: CALCIUM 9.4 mg/dL (8.5-10.1); CREATININE 0.9 mg/dL (0.6-1.0); GFR 64.1; POTASSIUM 4.1 mmol/L (3.5-5.1)
[2018-07-25 13:41] LABS: ALBUMIN 4.1 g/dL (3.4-5.0); ALBUMIN/GLOBULIN RATIO 1.1 (1.0-1.7); TOTAL BILIRUBIN 0.3 mg/dL (0.2-1.0); TOTAL PROTEIN 7.8 g/dL (6.4-8.2)
[2018-07-25] MEDS ORDERED: clonazePAM 0.5 MG TABLET PO STA (14:02)
[2018-07-25] MEDS ORDERED: GABAPENTIN 300 MG CAPSULE. PO STA (14:02)
[2018-07-25] MEDS ORDERED: ACETAMINOPHEN 650 MG/20.3 ML SOLUTION. GT PRN (15:15)
[2018-07-25] MEDS ORDERED: ONDANSETRON PF 4 MG/2 ML VIAL. IV PRN (15:15)
[2018-07-25] MEDS ORDERED: PIPERACILLIN/TAZOBACTAM 3.375 GM in IV NORMAL SALINE 50ML 50 ML IV ONE (15:30)
[2018-07-25 16:45] VITALS: BP 130/63
[2018-07-25] MEDS ORDERED: MIRT15TA3 PO (17:28)
[2018-07-25] MEDS ORDERED: METO5TAB4 PO (17:28)
[2018-07-25] MEDS ORDERED: MULT1TAB52 PO (17:28)
[2018-07-25] MEDS ORDERED: FURO80TA3 PO (17:28)
[2018-07-25] MEDS ORDERED: POTA20TA82 PO (17:28)
[2018-07-25] MEDS ORDERED: CLON1TAB4 PO (17:30)
--- NOTE | 2018-07-25 18:25 | PDOC1 ---
History and Physical Date of Admission Date of Admission DATE: 07/25/18 TIME: 18:17 Identification/Chief Complaint Chief Complaint Nausea, vomiting, diarrhea History of Present Illness History of Present Illness This patient is a 58-year-old lady that has a known history of hypertension, obesity, arthritis that had admissions to this institution recently because of problems with C. difficile. This created problems for several months and it was very difficult to control. For the past 3 days the patient has been having diarrhea with a poor by mouth intake and then over the last 24 hours she is to develop significant nausea and vomiting. She has not been able to tolerate much by mouth intake today. The patient came to the emergency room where she was seen and evaluated and he was decided to admit her. At the time that I saw her she complains of abdominal pain mostly over the epigastric and left upper quadrant. No significant dyspnea at this time, no palpitations. Past Medical History Cardiovascular: HTN Pulmonary: COPD CENTRAL NERVOUS SYSTEM: Seizure GI: GERD, GI bleed, Hemorrhoids, Other Heme/Onc: Anemia NOS, Iron deficiency Anemia, Other Hepatobiliary: No pertinent hx, Cholelithiasis Psych: Anxiety, Depression Musculoskeletal: Osteoarthritis, Other Renal/: No pertinent hx Endocrine: No pertinent hx Family History Family History: Hypertension Social History ALCOHOL: rare Drugs: None Current Problem List Problem List Problems Medical Problems: (1) UTI (urinary tract infection) Status: Acute Current Medications Current Medications Current Medications Sodium Chloride 1,000 ml @ 1,000 mls/hr 1X ONCE IV Last administered on 07/25at 13:07; Start 07/25/18 at 12:30; Stop 07/25/18 at 13:29; Status DC Famotidine (Pepcid Vial) 20 mg 1X ONCE IVP Last administered on 07/25/18at 13: 08; Start 07/25/18 at 12:30; Stop 07/25/18 at 12:33; Status DC Ondansetron HCl (Zofran) 4 mg 1X ONCE IV Last administered on 07/25/18at 13:08 ; Start 07/25/18 at 12:30; Stop 07/25/18 at 12:33; Status DC Clonazepam (KlonoPIN) 0.5 mg 1X STAT PO Last administered on 07/25/18at 14:13 ; Start 07/25/18 at 14:02; Stop 07/25/18 at 14:05; Status DC Gabapentin (Neurontin) 600 mg 1X STAT PO Last administered on 07/25/18at 14:14 ; Start 07/25/18 at 14:02; Stop 07/25/18 at 14:05; Status DC Sodium Chloride 1,000 ml @ 1,000 mls/hr 1X ONCE IV Last administered on 07/25at 14:30; Start 07/25/18 at 14:30; Stop 07/25/18 at 15:29; Status DC Ondansetron HCl (Zofran) 4 mg PRN Q4HRS PRN IV NAUSEA/VOMITING; Start at 15:15 Acetaminophen (Tylenol) 650 mg PRN Q4HRS PRN GT TEMP OVER 100.4F OR MILD PAIN; Start 07/25/18 at 15:15 Piperacillin Sod/ Tazobactam Sod 3.375 gm/Sodium Chloride 50 ml @ 100 mls/hr Q6HRS IV ; Start 07/25/18 at 23:00 Sodium Chloride 1,000 ml @ 75 mls/hr 1X ONCE IV Last administered on at 17:39; Start 07/25/18 at 15:15; Stop 07/26/18 at 04:34 Piperacillin Sod/ Tazobactam Sod 3.375 gm/Sodium Chloride 50 ml @ 100 mls/hr 1X ONCE IV Last administered on 07/25/18at 15:34; Start 07/25/18 at 15:30; Stop 07/25/18 at 15:59; Status DC Active Scripts Active Reported Clonazepam 1 Mg Tablet 1.5 Tab PO QHS Metolazone 5 Mg Tablet 5 Mg PO DAILY Furosemide 80 Mg Tablet 1 Tab PO DAILY Potassium Chloride 20 Meq Tablet.er 20 Meq PO BID Multivitamins (Multivitamin) 1 Each Tablet 1 Tab PO DAILY Mirtazapine 15 Mg Tablet 7.5 Mg PO QHS Rexulti (Brexpiprazole) 2 Mg Tablet 2 Mg PO DAILY Gabapentin 600 Mg Tablet 1,200 Mg PO HS Gabapentin 300 Mg Capsule 600 Mg PO TID Clonazepam 0.5 Mg Tablet 1 Tab PO TID Zolpidem Tartrate 5 Mg Tablet 2 Tab PO QHS Allergies Allergies: Coded Allergies: guaifenesin (Verified Allergy, Intermediate, 11/26/15) meperidine (Verified Allergy, Intermediate, 07/26/18) Has tolerated fentanyl Physical Exam General: Alert, Oriented X3, Cooperative HEENT: Atraumatic, PERRLA Lungs: Clear to auscultation Heart: S1S2, RRR, no gallops, no murmurs Abdomen: Other (soft, increased bowel sounds. No significant tenderness or rebound) Rectal Exam: deferred Extremities: No edema Psych/Mental Status: Mental status NL Vitals Vitals Vital Signs Date Time Temp Pulse Resp B/P (MAP) Pulse Ox O2 Delivery O2 Flow Rate FiO2 07/25/18 17:00 Room Air 07/25/18 16:45 98.2 74 18 130/63 (85) 92 98.2 Labs Labs Laboratory Tests Test 07/25/18 12:12 07/25/18 13:10 Urine Collection Type Unknown Urine Color Yellow Urine Clarity Clear Urine pH 6.0 Urine Specific [place] 1.025 Urine Protein Negative mg/dL (NEG-TRACE) Urine Glucose (UA) Negative mg/dL (NEG) Urine Ketones (Stick) Negative mg/dL (NEG) Urine Blood Negative (NEG) Urine Nitrite Negative (NEG) Urine Bilirubin Negative (NEG) Urine Urobilinogen Dipstick 0.2 mg/dL (0.2 mg/dL) Urine Leukocyte Esterase Moderate (NEG) Urine RBC 0 /HPF (0-2) Urine WBC 5-10 /HPF (0-4) Urine Squamous Epithelial Cells Many /LPF Urine Bacteria 0 /HPF (0-FEW) Urine Hyaline Casts Many /HPF Urine Mucus Mod /LPF Urine Opiates Screen Neg (NEG) Urine Methadone Screen Neg (NEG) Urine Barbiturates Neg (NEG) Urine Phencyclidine Screen Neg (NEG) Urine Amphetamine/Methamphetamine Neg (NEG) Urine Benzodiazepines Screen Neg (NEG) Urine Cocaine Screen Neg (NEG) Urine Cannabinoids Screen Neg (NEG) Urine Ethyl Alcohol Neg (NEG) White Blood Count 8.6 x10^3/uL (4.0-11.0) Red Blood Count 5.11 x10^6/uL (3.50-5.40) Hemoglobin 14.1 g/dL (12.0-15.5) Hematocrit 41.9 % (36.0-47.0) Mean Corpuscular Volume 82 fL (79-100) Mean Corpuscular Hemoglobin 28 pg (25-35) Mean Corpuscular Hemoglobin Concent 34 g/dL (31-37) Red Cell Distribution Width 16.4 % (11.5-14.5) Platelet Count 247 x10^3/uL (140-400) Neutrophils (%) (Auto) 67 % (31-73) Lymphocytes (%) (Auto) 22 % (24-48) Monocytes (%) (Auto) 8 % (0-9) Eosinophils (%) (Auto) 2 % (0-3) Basophils (%) (Auto) 1 % (0-3) Neutrophils # (Auto) 5.8 x10^3uL (1.8-7.7) Lymphocytes # (Auto) 1.9 x10^3/uL (1.0-4.8) Monocytes # (Auto) 0.7 x10^3/uL (0.0-1.1) Eosinophils # (Auto) 0.1 x10^3/uL (0.0-0.7) Basophils # (Auto) 0.1 x10^3/uL (0.0-0.2) Sodium Level 140 mmol/L (136-145) Potassium Level 4.1 mmol/L (3.5-5.1) Chloride Level 105 mmol/L (98-107) Carbon Dioxide Level 26 mmol/L (21-32) Anion Gap 9 (6-14) Blood Urea Nitrogen 21 mg/dL (7-20) Creatinine 0.9 mg/dL (0.6-1.0) Estimated GFR (Cockcroft-Gault) 64.1 BUN/Creatinine Ratio 23 (6-20) Glucose Level 91 mg/dL (70-99) Calcium Level 9.4 mg/dL (8.5-10.1) Total Bilirubin 0.3 mg/dL (0.2-1.0) Aspartate Amino Transf (AST/SGOT) 19 U/L (15-37) Alanine Aminotransferase (ALT/SGPT) 33 U/L (14-59) Alkaline Phosphatase 124 U/L (46-116) Troponin I Quantitative < 0.017 ng/mL (0.000-0.055) KA-Mdq-L-Type Natriuretic Peptide 64 pg/mL (0-124) Total Protein 7.8 g/dL (6.4-8.2) Albumin 4.1 g/dL (3.4-5.0) Albumin/Globulin Ratio 1.1 (1.0-1.7) Lipase 85 U/L (73-393) Laboratory Tests Test 07/25/18 12:12 07/25/18 13:10 Urine Collection Type Unknown Urine Color Yellow Urine Clarity Clear Urine pH 6.0 Urine Specific [place] 1.025 Urine Protein Negative mg/dL (NEG-TRACE) Urine Glucose (UA) Negative mg/dL (NEG) Urine Ketones (Stick) Negative mg/dL (NEG) Urine Blood Negative (NEG) Urine Nitrite Negative (NEG) Urine Bilirubin Negative (NEG) Urine Urobilinogen Dipstick 0.2 mg/dL (0.2 mg/dL) Urine Leukocyte Esterase Moderate (NEG) Urine RBC 0 /HPF (0-2) Urine WBC 5-10 /HPF (0-4) Urine Squamous Epithelial Cells Many /LPF Urine Bacteria 0 /HPF (0-FEW) Urine Hyaline Casts Many /HPF Urine Mucus Mod /LPF Urine Opiates Screen Neg (NEG) Urine Methadone Screen Neg (NEG) Urine Barbiturates Neg (NEG) Urine Phencyclidine Screen Neg (NEG) Urine Amphetamine/Methamphetamine Neg (NEG) Urine Benzodiazepines Screen Neg (NEG) Urine Cocaine Screen Neg (NEG) Urine Cannabinoids Screen Neg (NEG) Urine Ethyl Alcohol Neg (NEG) White Blood Count 8.6 x10^3/uL (4.0-11.0) Red Blood Count 5.11 x10^6/uL (3.50-5.40) Hemoglobin 14.1 g/dL (12.0-15.5) Hematocrit 41.9 % (36.0-47.0) Mean Corpuscular Volume 82 fL (79-100) Mean Corpuscular Hemoglobin 28 pg (25-35) Mean Corpuscular Hemoglobin Concent 34 g/dL (31-37) Red Cell Distribution Width 16.4 % (11.5-14.5) Platelet Count 247 x10^3/uL (140-400) Neutrophils (%) (Auto) 67 % (31-73) Lymphocytes (%) (Auto) 22 % (24-48) Monocytes (%) (Auto) 8 % (0-9) Eosinophils (%) (Auto) 2 % (0-3) Basophils (%) (Auto) 1 % (0-3) Neutrophils # (Auto) 5.8 x10^3uL (1.8-7.7) Lymphocytes # (Auto) 1.9 x10^3/uL (1.0-4.8) Monocytes # (Auto) 0.7 x10^3/uL (0.0-1.1) Eosinophils # (Auto) 0.1 x10^3/uL (0.0-0.7) Basophils # (Auto) 0.1 x10^3/uL (0.0-0.2) Sodium Level 140 mmol/L (136-145) Potassium Level 4.1 mmol/L (3.5-5.1) Chloride Level 105 mmol/L (98-107) Carbon Dioxide Level 26 mmol/L (21-32) Anion Gap 9 (6-14) Blood Urea Nitrogen 21 mg/dL (7-20) Creatinine 0.9 mg/dL (0.6-1.0) Estimated GFR (Cockcroft-Gault) 64.1 BUN/Creatinine Ratio 23 (6-20) Glucose Level 91 mg/dL (70-99) Calcium Level 9.4 mg/dL (8.5-10.1) Total Bilirubin 0.3 mg/dL (0.2-1.0) Aspartate Amino Transf (AST/SGOT) 19 U/L (15-37) Alanine Aminotransferase (ALT/SGPT) 33 U/L (14-59) Alkaline Phosphatase 124 U/L (46-116) Troponin I Quantitative < 0.017 ng/mL (0.000-0.055) VU-Yrk-F-Type Natriuretic Peptide 64 pg/mL (0-124) Total Protein 7.8 g/dL (6.4-8.2) Albumin 4.1 g/dL (3.4-5.0) Albumin/Globulin Ratio 1.1 (1.0-1.7) Lipase 85 U/L (73-393) VTE Prophylaxis Ordered VTE Prophylaxis Devices: No VTE Pharmacological Prophylaxi: No Assessment/Plan Assessment/Plan This patient comes in with 3 days of diarrhea and 24 hours of nausea and vomiting and appears to be dehydrated at this point. I am concerned with her history that she may have a relapse of her C. difficile. I would like to admit her check labs consult GI and rehydrate her. Depending on the recommendations of the hand sewer shoes will then go from there. MEERA RIGGS MD Jul 25, 2018 18:25
[2018-07-25 19:00] VITALS: BP 132/70
[2018-07-25] MEDS: MIRTAZAPINE 7.5 MG TABLET. PO SCH (21:00)
[2018-07-25] MEDS: ZOLPIDEM 5 MG TABLET. PO SCH (21:00)
[2018-07-25] MEDS: GABAPENTIN 400 MG CAPSULE. PO SCH (21:00)
[2018-07-25] MEDS: clonazePAM 1 MG TABLET PO SCH (21:00)
[2018-07-25] MEDS: PIPERACILLIN/TAZOBACTAM 3.375 GM in IV NORMAL SALINE 50ML 50 ML IV SCH ×2 (22:32→22:33)
[2018-07-25 23:00] VITALS: BP 129/64
[2018-07-26 03:00] VITALS: BP 125/82
[2018-07-26] MEDS: PIPERACILLIN/TAZOBACTAM 3.375 GM in IV NORMAL SALINE 50ML 50 ML IV SCH ×3 (05:12→16:28)
[2018-07-26 07:00] VITALS: BP 123/64
[2018-07-26] MEDS: fentaNYL PF VIAL 100 MCG/2 ML VIAL IV PRN ×3 (07:48→17:33)
[2018-07-26] MEDS: metOLazone 2.5 MG TABLET PO SCH (07:50)
[2018-07-26] MEDS: clonazePAM 0.5 MG TABLET PO SCH ×4 (07:50→20:13)
[2018-07-26] MEDS: NON FORMULARY ITEM (Brexpiprazole (Rexulti) 2 MG) PO SCH (07:50)
[2018-07-26] MEDS: POTASSIUM CHLORIDE 20 MEQ TABLET.ER. PO SCH ×2 (07:50→16:28)
[2018-07-26] MEDS: GABAPENTIN 300 MG CAPSULE. PO SCH ×3 (07:50→16:28)
[2018-07-26] MEDS: MULTIVITAMIN with MINERAL TABLET. PO SCH (07:50)
[2018-07-26] MEDS: FUROSEMIDE 80 MG TABLET. PO SCH (07:51)
--- NOTE | 2018-07-26 09:05 | PDOC2 ---
GI CONSULT Reason For Consult: N/v/d HPI: HPI: 58 y/o female known to GI. Admitted through ER last evening. She reports 3 days of nausea (denies vomiting) and diarrhea ("too many to count") that began without precipitating events. Associated left-sided cramping. Tolerating regular diet here. Per pt and RN, has had one stool since admission. (Per new policy, cannot collect specimen for C Diff until pt has had 3 stools.) Denies reflux, dysphagia, hematochezia, melena, and weight loss. Labs include normal WBC, Hgb, potassium, Cr, albumin, and UA. Alk Phos is 124 and BUN was 21. No abd imaging. RN mentions h/o anxiety, pt crying earlier. Previous workup: EGD 03/2014: grade 1 reflux esophagitis w/ possible candidiasis, evidence of prior gastric sleeve, mild gastritis, and duodenitis w/ atrophy and flattened folds. Biopsies negative for Wyman's, H. pylori, and celiac sprue. EGD 09/2014: grade 2 reflux esophagitis, prior gastric sleeve, and gastritis. Biopsies again negative for Wyman's, H. pylori, and celiac sprue. SBCE 04/2014: esophagitis, prior gastric sleeve, mild duodenitis. No source of bleeding identified. Colonoscopy 03/2014: internal hemorrhoids and random colon biopsies showed acute/chronic inflammation. Colonoscopy 09/2014: sigmoid diverticulosis and mild patchy colitis in transverse colon w/ biopsies that were negative for pathology. Colonoscopy 11/2015: diverticulosis and normal random colon biopsies. Upper GI/Barium swallow 11/2015: negative. S/p gastric sleeve and cholecystectomy. H/o C Diff x 2 - treated w/ vanco in the past, thinks last occurrence >1 year ago. No recent atbx. H/o anemia - still on iron, no longer B12. Occasional GERD symptoms, takes Pepcid PRN. (Previously tried Carafate.) H/o diarrhea that has not been bothersome (until symptom onset 3 days ago) - takes Imodium PRN and probiotics QD. (Previously tried steroids, Lomotil, Colestipol, pancreatic enzymes, Flagyl, Kaopectate.) No NSAIDs. PMH: PMH: anxiety, depression, alopecia, arthritis, sleep apnea, anemia, COPD, C Diff, cholecystectomy, tonsillectomy, gastric sleeve (other notes list mastectomy and pacemaker - she denies both) FH: Family History: CAD, DM, Hypertension Social History: Smoke: No ALCOHOL: rare Drugs: None ROS: GEN: Denies fevers, chills, sweats HEENT: Denies blurred vision, sore throat CV: Denies chest pain RESP: Denies shortness of air, cough GI: Per HPI : Denies hematuria, dysuria ENDO: Denies weight changes NEURO: Denies confusion, dizziness MSK: Denies weakness, joint pain/swelling SKIN: Denies jaundice, pruritus Vitals: Vitals: Vital Signs Date Time Temp Pulse Resp B/P (MAP) Pulse Ox O2 Delivery O2 Flow Rate FiO2 07/26/18 07:48 94 Room Air 07/26/18 07:00 97.4 67 20 123/64 (83) 97.4 Labs: Labs: Laboratory Tests Test 07/25/18 12:12 07/25/18 13:10 Urine Collection Type Unknown Urine Color Yellow Urine Clarity Clear Urine pH 6.0 Urine Specific [place] 1.025 Urine Protein Negative mg/dL (NEG-TRACE) Urine Glucose (UA) Negative mg/dL (NEG) Urine Ketones (Stick) Negative mg/dL (NEG) Urine Blood Negative (NEG) Urine Nitrite Negative (NEG) Urine Bilirubin Negative (NEG) Urine Urobilinogen Dipstick 0.2 mg/dL (0.2 mg/dL) Urine Leukocyte Esterase Moderate (NEG) Urine RBC 0 /HPF (0-2) Urine WBC 5-10 /HPF (0-4) Urine Squamous Epithelial Cells Many /LPF Urine Bacteria 0 /HPF (0-FEW) Urine Hyaline Casts Many /HPF Urine Mucus Mod /LPF Urine Opiates Screen Neg (NEG) Urine Methadone Screen Neg (NEG) Urine Barbiturates Neg (NEG) Urine Phencyclidine Screen Neg (NEG) Urine Amphetamine/Methamphetamine Neg (NEG) Urine Benzodiazepines Screen Neg (NEG) Urine Cocaine Screen Neg (NEG) Urine Cannabinoids Screen Neg (NEG) Urine Ethyl Alcohol Neg (NEG) White Blood Count 8.6 x10^3/uL (4.0-11.0) Red Blood Count 5.11 x10^6/uL (3.50-5.40) Hemoglobin 14.1 g/dL (12.0-15.5) Hematocrit 41.9 % (36.0-47.0) Mean Corpuscular Volume 82 fL (79-100) Mean Corpuscular Hemoglobin 28 pg (25-35) Mean Corpuscular Hemoglobin Concent 34 g/dL (31-37) Red Cell Distribution Width 16.4 % (11.5-14.5) Platelet Count 247 x10^3/uL (140-400) Neutrophils (%) (Auto) 67 % (31-73) Lymphocytes (%) (Auto) 22 % (24-48) Monocytes (%) (Auto) 8 % (0-9) Eosinophils (%) (Auto) 2 % (0-3) Basophils (%) (Auto) 1 % (0-3) Neutrophils # (Auto) 5.8 x10^3uL (1.8-7.7) Lymphocytes # (Auto) 1.9 x10^3/uL (1.0-4.8) Monocytes # (Auto) 0.7 x10^3/uL (0.0-1.1) Eosinophils # (Auto) 0.1 x10^3/uL (0.0-0.7) Basophils # (Auto) 0.1 x10^3/uL (0.0-0.2) Sodium Level 140 mmol/L (136-145) Potassium Level 4.1 mmol/L (3.5-5.1) Chloride Level 105 mmol/L (98-107) Carbon Dioxide Level 26 mmol/L (21-32) Anion Gap 9 (6-14) Blood Urea Nitrogen 21 mg/dL (7-20) Creatinine 0.9 mg/dL (0.6-1.0) Estimated GFR (Cockcroft-Gault) 64.1 BUN/Creatinine Ratio 23 (6-20) Glucose Level 91 mg/dL (70-99) Calcium Level 9.4 mg/dL (8.5-10.1) Total Bilirubin 0.3 mg/dL (0.2-1.0) Aspartate Amino Transf (AST/SGOT) 19 U/L (15-37) Alanine Aminotransferase (ALT/SGPT) 33 U/L (14-59) Alkaline Phosphatase 124 U/L (46-116) Troponin I Quantitative < 0.017 ng/mL (0.000-0.055) CT-Svd-P-Type Natriuretic Peptide 64 pg/mL (0-124) Total Protein 7.8 g/dL (6.4-8.2) Albumin 4.1 g/dL (3.4-5.0) Albumin/Globulin Ratio 1.1 (1.0-1.7) Lipase 85 U/L (73-393) Allergies: Coded Allergies: guaifenesin (Verified Allergy, Intermediate, 11/26/15) meperidine (Verified Allergy, Intermediate, 07/26/18) Has tolerated fentanyl Medications: Current Medications Medications (Trade) Dose Ordered Sig/Akil Route PRN Reason Start Time Stop Time Status Last Admin Dose Admin Sodium Chloride 1,000 ml @ 1,000 mls/hr 1X ONCE IV 07/25/18 12:30 07/25/18 13:29 DC 07/25/18 13:07 Famotidine (Pepcid Vial) 20 mg 1X ONCE IVP 07/25/18 12:30 07/25/18 12:33 DC 07/25/18 13:08 Ondansetron HCl (Zofran) 4 mg 1X ONCE IV 07/25/18 12:30 07/25/18 12:33 DC 07/25/18 13:08 Clonazepam (KlonoPIN) 0.5 mg 1X STAT PO 07/25/18 14:02 07/25/18 14:05 DC 07/25/18 14:13 Gabapentin (Neurontin) 600 mg 1X STAT PO 07/25/18 14:02 07/25/18 14:05 DC 07/25/18 14:14 Sodium Chloride 1,000 ml @ 1,000 mls/hr 1X ONCE IV 07/25/18 14:30 07/25/18 15:29 DC 07/25/18 14:30 Piperacillin Sod/ Tazobactam Sod 3.375 gm/Sodium Chloride 50 ml @ 100 mls/hr Q6HRS IV 07/25/18 23:00 07/26/18 05:12 Sodium Chloride 1,000 ml @ 75 mls/hr 1X ONCE IV 07/25/18 15:15 07/26/18 04:35 DC 07/25/18 17:39 Piperacillin Sod/ Tazobactam Sod 3.375 gm/Sodium Chloride 50 ml @ 100 mls/hr 1X ONCE IV 07/25/18 15:30 07/25/18 15:59 DC 07/25/18 15:34 Clonazepam (KlonoPIN) 0.5 mg TID@0900,1300,1600 PO 07/26/18 09:00 07/26/18 07:50 Furosemide (Lasix) 80 mg DAILY PO 07/26/18 09:00 07/26/18 07:51 Gabapentin (Neurontin) 600 mg TID@0700,1300,1600 PO 07/26/18 07:00 07/26/18 07:50 Metolazone (Zaroxolyn) 5 mg DAILY PO 07/26/18 09:00 07/26/18 07:50 Multivitamins (Thera M Plus) 1 tab DAILY PO 07/26/18 09:00 07/26/18 07:50 Potassium Chloride (Klor-Con) 20 meq BIDWMEALS PO 07/26/18 08:00 07/26/18 07:50 Fentanyl Citrate (Fentanyl 2ml Vial) 50 mcg PRN Q4HRS PRN IV PAIN 07/26/18 07:00 07/26/18 07:48 Imaging: Imaging: CXR IMPRESSION: No acute cardiopulmonary process. PE: GEN: NAD HEENT: Atraumatic, PERRL LUNGS: CTAB HEART: RRR ABD: NABS, S/ND, mild/vague discomfort LUQ EXTREMITY: No edema SKIN: No rashes, no jaundice NEURO/PSYCH: A & O 3, depressed A/P: A/P: Nausea, diarrhea, left-sided abd pain Anxiety, depression H/o diarrhea and C Diff GERD CRC screen - UTD Diverticulosis S/p gastric sleeve S/p cholecystectomy H/o anemia -- Has chronic GI issues. Improved? Labs unrevealing. Await stool studies and check CT A/P. 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 BRIELLE THOAMS Jul 26, 2018 09:05
[2018-07-26 11:00] VITALS: BP 151/94
[2018-07-26] MEDS: LACTOBACILLUS RHAMNOSUS GG 1 CAPSULE. PO SCH ×2 (11:37→20:13)
[2018-07-26 15:00] VITALS: BP 113/68
--- NOTE | 2018-07-26 15:52 | PDOC ---
PROGRESS NOTES Subjective Subjective patient is still having nausea, but it has decreased since her admission she is able to tolerate oral intake at this time Objective Objective Vital Signs Date Time Temp Pulse Resp B/P (MAP) Pulse Ox O2 Delivery O2 Flow Rate FiO2 07/26/18 12:56 18 96 Room Air 07/26/18 11:00 97.5 73 151/94 (113) 97.5 Intake and Output 07/26/18 07:00 Intake Total 2550 ml Output Total 400 ml Balance 2150 ml Intake Oral 500 ml IV Total 2050 ml Output Urine Total 400 ml Physical Exam Abdomen: Normal bowel sounds, Soft, No hepatosplenomegaly, No masses Heart: Regular rate, Normal S1, Normal S2, No murmurs Extremities: No clubbing, No cyanosis, No edema, Normal pulses General: Alert, Oriented X3, Cooperative, No acute distress Lungs: Clear to auscultation, Normal air movement Assessment Assessment Problems Medical Problems: (1) UTI (urinary tract infection) Status: Acute Plan Plan of Care continue to monitor patient for increased nausea, abdominal pain, and symptoms of dehydration patient able to tolerate oral intake at this time, encouraged to drink fluids stool studies pending for c diff toxin awaiting read of CT abdomen/pelvis acid-jewelry polisher added for symptomatic relief as recommended by GI consultation Comment Review of Relevant I have reviewed the following items danny (where applicable) has been applied. Labs Laboratory Tests Test 07/25/18 12:12 07/25/18 13:10 Urine Collection Type Unknown Urine Color Yellow Urine Clarity Clear Urine pH 6.0 Urine Specific [place] 1.025 Urine Protein Negative mg/dL (NEG-TRACE) Urine Glucose (UA) Negative mg/dL (NEG) Urine Ketones (Stick) Negative mg/dL (NEG) Urine Blood Negative (NEG) Urine Nitrite Negative (NEG) Urine Bilirubin Negative (NEG) Urine Urobilinogen Dipstick 0.2 mg/dL (0.2 mg/dL) Urine Leukocyte Esterase Moderate (NEG) Urine RBC 0 /HPF (0-2) Urine WBC 5-10 /HPF (0-4) Urine Squamous Epithelial Cells Many /LPF Urine Bacteria 0 /HPF (0-FEW) Urine Hyaline Casts Many /HPF Urine Mucus Mod /LPF Urine Opiates Screen Neg (NEG) Urine Methadone Screen Neg (NEG) Urine Barbiturates Neg (NEG) Urine Phencyclidine Screen Neg (NEG) Urine Amphetamine/Methamphetamine Neg (NEG) Urine Benzodiazepines Screen Neg (NEG) Urine Cocaine Screen Neg (NEG) Urine Cannabinoids Screen Neg (NEG) Urine Ethyl Alcohol Neg (NEG) White Blood Count 8.6 x10^3/uL (4.0-11.0) Red Blood Count 5.11 x10^6/uL (3.50-5.40) Hemoglobin 14.1 g/dL (12.0-15.5) Hematocrit 41.9 % (36.0-47.0) Mean Corpuscular Volume 82 fL (79-100) Mean Corpuscular Hemoglobin 28 pg (25-35) Mean Corpuscular Hemoglobin Concent 34 g/dL (31-37) Red Cell Distribution Width 16.4 % (11.5-14.5) Platelet Count 247 x10^3/uL (140-400) Neutrophils (%) (Auto) 67 % (31-73) Lymphocytes (%) (Auto) 22 % (24-48) Monocytes (%) (Auto) 8 % (0-9) Eosinophils (%) (Auto) 2 % (0-3) Basophils (%) (Auto) 1 % (0-3) Neutrophils # (Auto) 5.8 x10^3uL (1.8-7.7) Lymphocytes # (Auto) 1.9 x10^3/uL (1.0-4.8) Monocytes # (Auto) 0.7 x10^3/uL (0.0-1.1) Eosinophils # (Auto) 0.1 x10^3/uL (0.0-0.7) Basophils # (Auto) 0.1 x10^3/uL (0.0-0.2) Sodium Level 140 mmol/L (136-145) Potassium Level 4.1 mmol/L (3.5-5.1) Chloride Level 105 mmol/L (98-107) Carbon Dioxide Level 26 mmol/L (21-32) Anion Gap 9 (6-14) Blood Urea Nitrogen 21 mg/dL (7-20) Creatinine 0.9 mg/dL (0.6-1.0) Estimated GFR (Cockcroft-Gault) 64.1 BUN/Creatinine Ratio 23 (6-20) Glucose Level 91 mg/dL (70-99) Calcium Level 9.4 mg/dL (8.5-10.1) Total Bilirubin 0.3 mg/dL (0.2-1.0) Aspartate Amino Transf (AST/SGOT) 19 U/L (15-37) Alanine Aminotransferase (ALT/SGPT) 33 U/L (14-59) Alkaline Phosphatase 124 U/L (46-116) Troponin I Quantitative < 0.017 ng/mL (0.000-0.055) PQ-Bsz-D-Type Natriuretic Peptide 64 pg/mL (0-124) Total Protein 7.8 g/dL (6.4-8.2) Albumin 4.1 g/dL (3.4-5.0) Albumin/Globulin Ratio 1.1 (1.0-1.7) Lipase 85 U/L (73-393) Medications Current Medications Sodium Chloride 1,000 ml @ 1,000 mls/hr 1X ONCE IV Last administered on 07/25at 13:07; Start 07/25/18 at 12:30; Stop 07/25/18 at 13:29; Status DC Famotidine (Pepcid Vial) 20 mg 1X ONCE IVP Last administered on 07/25/18at 13: 08; Start 07/25/18 at 12:30; Stop 07/25/18 at 12:33; Status DC Ondansetron HCl (Zofran) 4 mg 1X ONCE IV Last administered on 07/25/18at 13:08 ; Start 07/25/18 at 12:30; Stop 07/25/18 at 12:33; Status DC Clonazepam (KlonoPIN) 0.5 mg 1X STAT PO Last administered on 07/25/18at 14:13 ; Start 07/25/18 at 14:02; Stop 07/25/18 at 14:05; Status DC Gabapentin (Neurontin) 600 mg 1X STAT PO Last administered on 07/25/18at 14:14 ; Start 07/25/18 at 14:02; Stop 07/25/18 at 14:05; Status DC Sodium Chloride 1,000 ml @ 1,000 mls/hr 1X ONCE IV Last administered on 07/25at 14:30; Start 07/25/18 at 14:30; Stop 07/25/18 at 15:29; Status DC Ondansetron HCl (Zofran) 4 mg PRN Q4HRS PRN IV NAUSEA/VOMITING; Start at 15:15 Acetaminophen (Tylenol) 650 mg PRN Q4HRS PRN GT TEMP OVER 100.4F OR MILD PAIN; Start 07/25/18 at 15:15 Piperacillin Sod/ Tazobactam Sod 3.375 gm/Sodium Chloride 50 ml @ 100 mls/hr Q6HRS IV Last administered on 07/26/18at 11:36; Start 07/25/18 at 23:00 Sodium Chloride 1,000 ml @ 75 mls/hr 1X ONCE IV Last administered on at 17:39; Start 07/25/18 at 15:15; Stop 07/26/18 at 04:35; Status DC Piperacillin Sod/ Tazobactam Sod 3.375 gm/Sodium Chloride 50 ml @ 100 mls/hr 1X ONCE IV Last administered on 07/25/18at 15:34; Start 07/25/18 at 15:30; Stop 07/25/18 at 15:59; Status DC Clonazepam (KlonoPIN) 0.5 mg TID@0900,1300,1600 PO Last administered on at 11:36; Start 07/26/18 at 09:00 Clonazepam (KlonoPIN) 1.5 mg QHS PO ; Start 07/25/18 at 21:00 Furosemide (Lasix) 80 mg DAILY PO Last administered on 07/26/18at 07:51; Start 07/26/18 at 09:00 Zolpidem Tartrate (Ambien) 5 mg QHS PO ; Start 07/25/18 at 21:00 Non-Formulary Medication (Brexpiprazole (Rexulti)) 2 mg DAILY PO ; Start at 09:00; Status UNV Gabapentin (Neurontin) 600 mg TID@0700,1300,1600 PO Last administered on at 11:37; Start 07/26/18 at 07:00 Gabapentin (Neurontin) 1,200 mg QHS PO ; Start 07/25/18 at 21:00 Metolazone (Zaroxolyn) 5 mg DAILY PO Last administered on 07/26/18at 07:50; Start 07/26/18 at 09:00 Mirtazapine (Remeron) 7.5 mg QHS PO ; Start 07/25/18 at 21:00 Multivitamins (Thera M Plus) 1 tab DAILY PO Last administered on 07/26/18at 07: 50; Start 07/26/18 at 09:00 Potassium Chloride (Klor-Con) 20 meq BIDWMEALS PO Last administered on at 07:50; Start 07/26/18 at 08:00 Fentanyl Citrate (Fentanyl 2ml Vial) 50 mcg PRN Q4HRS PRN IV PAIN Last administered on 07/26/18at 12:26; Start 07/26/18 at 07:00 Famotidine (Pepcid) 20 mg QHS PO ; Start 07/26/18 at 21:00 Lactobacillus Rhamnosus (Culturelle) 1 cap BID PO Last administered on at 11:37; Start 07/26/18 at 10:00 Active Scripts Active Reported Clonazepam 1 Mg Tablet 1.5 Tab PO QHS Metolazone 5 Mg Tablet 5 Mg PO DAILY Furosemide 80 Mg Tablet 1 Tab PO DAILY Potassium Chloride 20 Meq Tablet.er 20 Meq PO BID Multivitamins (Multivitamin) 1 Each Tablet 1 Tab PO DAILY Mirtazapine 15 Mg Tablet 7.5 Mg PO QHS Rexulti (Brexpiprazole) 2 Mg Tablet 2 Mg PO DAILY Gabapentin 600 Mg Tablet 1,200 Mg PO HS Gabapentin 300 Mg Capsule 600 Mg PO TID Clonazepam 0.5 Mg Tablet 1 Tab PO TID Zolpidem Tartrate 5 Mg Tablet 2 Tab PO QHS Vitals/I & O Vital Sign - Last 24 Hours 07/25/18 07/25/18 07/25/18 07/25/18 16:00 16:45 17:00 19:00 Temp 98.2 98.4 98.2 98.4 Pulse 71 74 72 Resp 18 18 18 B/P (MAP) 130/63 (85) 132/70 (90) Pulse Ox 99 92 91 O2 Delivery Room Air Room Air Room Air 07/25/18 07/25/18 07/26/18 07/26/18 20:00 23:00 03:00 07:00 Temp 98.1 98.3 97.4 98.1 98.3 97.4 Pulse 70 65 67 Resp 18 18 20 B/P (MAP) 129/64 (85) 125/82 (96) 123/64 (83) Pulse Ox 98 94 97 O2 Delivery Room Air Room Air Room Air Room Air 07/26/18 07/26/18 07/26/18 07/26/18 07:48 08:00 11:00 12:26 Temp 97.5 97.5 Pulse 73 Resp 20 18 B/P (MAP) 151/94 (113) Pulse Ox 94 96 96 O2 Delivery Room Air Room Air Room Air Room Air 07/26/18 12:56 Resp 18 Pulse Ox 96 O2 Delivery Room Air Intake and Output 07/25/18 07/25/18 07/26/18 15:00 23:00 07:00 Intake Total 1000 ml 1250 ml 300 ml Output Total 0 ml 400 ml Balance 1000 ml 1250 ml -100 ml MEERA RIGGS MD Jul 26, 2018 15:52
--- NOTE | 2018-07-26 15:58 | RAD ---
CT of the abdomen and pelvis without contrast, 07/26/2018: HISTORY: Nausea, vomiting, diarrhea, left-sided pain Multidetector CT imaging was performed without oral or IV contrast as requested. This limits evaluation of the abdominal structures. The gallbladder is surgically absent. The unopacified liver shows no abnormality. No pancreatic abnormality is detected. The spleen is of normal size. The left renal collecting system is duplicated. No renal calculi are seen. There is no evidence of hydronephrosis. Moderate aortic calcific plaquing is present without evidence of aneurysm. No abdominal or pelvic adenopathy is seen. Several small sigmoid diverticula are noted. The bowel loops are not dilated. There are surgical sutures related to the stomach. No free air or free fluid is evident in the abdomen or pelvis. There is a small fascial defect along the right side of the umbilicus with herniation of a small amount of intra-abdominal fat. No bowel herniation is evident. 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 IMPRESSION: 1. No acute abdominal or pelvic abnormality is detected. 2. Minimal sigmoid diverticulosis. 3. Small fat-containing periumbilical hernia. PQRS Compliance Statement: One or more of the following individualized dose reduction techniques were utilized for this examination: 1. Automated exposure control 2. Adjustment of the mA and/or kV according to patient size 3. Use of iterative reconstruction technique Electronically signed by: Terrence Cutler MD (07/26/2018 3:55 PM) [facility]
[2018-07-26 19:00] VITALS: BP 123/76
[2018-07-26] MEDS: MIRTAZAPINE 7.5 MG TABLET. PO SCH (20:13)
[2018-07-26] MEDS: GABAPENTIN 400 MG CAPSULE. PO SCH (20:13)
[2018-07-26] MEDS: ZOLPIDEM 5 MG TABLET. PO SCH (20:14)
[2018-07-26] MEDS: clonazePAM 1 MG TABLET PO SCH (20:20)
[2018-07-26] MEDS ORDERED: FAMOTIDINE 20 MG TABLET. PO SCH (21:00)
[2018-07-26 23:00] VITALS: BP 125/82
[2018-07-27] MEDS: PIPERACILLIN/TAZOBACTAM 3.375 GM in IV NORMAL SALINE 50ML 50 ML IV SCH ×3 (00:07→12:00)
[2018-07-27 03:00] VITALS: BP 139/85
[2018-07-27] MEDS: GABAPENTIN 300 MG CAPSULE. PO SCH ×2 (05:51→13:17)
[2018-07-27 07:00] VITALS: BP 148/93
[2018-07-27] MEDS: POTASSIUM CHLORIDE 20 MEQ TABLET.ER. PO SCH (08:00)
[2018-07-27] MEDS: NON FORMULARY ITEM (Brexpiprazole (Rexulti) 2 MG) PO SCH (09:00)
[2018-07-27] MEDS: LACTOBACILLUS RHAMNOSUS GG 1 CAPSULE. PO SCH (09:28)
[2018-07-27] MEDS: MULTIVITAMIN with MINERAL TABLET. PO SCH (09:29)
[2018-07-27] MEDS: metOLazone 2.5 MG TABLET PO SCH (09:29)
[2018-07-27] MEDS: FUROSEMIDE 80 MG TABLET. PO SCH (09:29)
[2018-07-27] MEDS ORDERED: HYDROcodone/APAP 5/325MG 1 TAB TABLET PO PRN ×3 (10:00→11:15)
--- NOTE | 2018-07-27 10:16 | PDOC ---
Subjective: Subjective: Feels better and thinks she could go home today. Says she has "baby poop" stools - small and mushy. Imodium not helpful at home. Thinks Lomotil worked in the past. Tolerating PO. Left-sided discomfort - thinks related to stooling, not cramping. Past trial of Bentyl not helpful. Objective: Vital Signs: Vital Signs Date Time Temp Pulse Resp B/P (MAP) Pulse Ox O2 Delivery O2 Flow Rate FiO2 07/27/18 07:00 97.6 98 20 148/93 (111) 98 Room Air 97.6 Imaging: CT A/P IMPRESSION: 1. No acute abdominal or pelvic abnormality is detected. 2. Minimal sigmoid diverticulosis. 3. Small fat-containing periumbilical hernia. PE: GEN: NAD LUNGS: CTAB HEART: RRR ABD: NABS, S/ND, doesn't seem tender NEURO/PSYCH: A & O 3 A/P: Nausea - better, tolerating regular diet Irregular bowel habits - h/o recurrent diarrhea and C Diff - negative here Left-sided pain - diverticulosis (no diverticulitis on CT) -- Quick improvement like last time. DC per Dr. Izaguirre. Could retry Bentyl. Will add Lomotil PRN. BRIELLE THOMAS Jul 27, 2018 10:16
[2018-07-27] MEDS ORDERED: DICYCLOMINE HCL 10 MG CAPSULE PO PRN (10:30)
[2018-07-27] MEDS ORDERED: DIPHENOXYLATE/ATROPINE TABLET. PO PRN (10:30)
[2018-07-27 11:00] VITALS: BP 132/92
[2018-07-27] MEDS: clonazePAM 0.5 MG TABLET PO SCH (13:17)
[2018-07-27 15:00] VITALS: BP 132/92
--- NOTE | 2018-07-27 15:40 | PDOC3 ---
*Discharge Summary* Date of Admission: Jul 25, 2018 Date of Discharge: Jul 27, 2018 Admitting Diagnosis Problems Medical Problems: (1) UTI (urinary tract infection) Status: Acute Final Diagnosis Problems Medical Problems: (1) UTI (urinary tract infection) Status: Acute CONSULTS gastroenterology Brief Hospital Course Ms. Murray is a 58 old female who presented with extreme nausea, vomiting and diarrhea for several days. She has had a history of Cdiff in the past, and there was concerns that she was having a relapse of this condition. She was struggling to have oral intake while an outpatient secondary to the nausea and abdominal pain. When she was admitted, her nausea and abdominal pain begun to subside as the days progressed. She had a negative Cdiff PCR. CT scan showed no acute abdominal pathology, with minimal sigmoid diverticulosis. She received Zosyn for possibel infection, and this was stopped on 07/27 when patient last her IV access. She believes that the episode of nausea has resolved at this point, and only has slight left lower quadrant pain remaining. Disposition/Orders: D/C to Home CONDITION AT DISCHARGE: Improved Diet: Regular Home Meds Reported Medications Clonazepam (CLONAZEPAM) 1 Mg Tablet, 1.5 TAB PO QHS, #30 TAB 07/25/18 Metolazone (METOLAZONE) 5 Mg Tablet, 5 MG PO DAILY, #30 TAB 0 Refills 07/25/18 Furosemide (FUROSEMIDE) 80 Mg Tablet, 1 TAB PO DAILY, #30 TAB 5 Refills 07/25/18 Potassium Chloride (POTASSIUM CHLORIDE) 20 Meq Tablet.er, 20 MEQ PO BID, TAB.SR 07/25/18 Multivitamin (MULTIVITAMINS) 1 Each Tablet, 1 TAB PO DAILY, #90 TAB 3 Refills 07/25/18 Mirtazapine (MIRTAZAPINE) 15 Mg Tablet, 7.5 MG PO QHS, TAB 07/25/18 Brexpiprazole (Rexulti) 2 Mg Tablet, 2 MG PO DAILY, TAB 09/12/17 Gabapentin (GABAPENTIN) 600 Mg Tablet, 1200 MG PO HS, TAB 09/12/17 Gabapentin (GABAPENTIN) 300 Mg Capsule, 600 MG PO TID, CAP 02/21/17 Clonazepam (CLONAZEPAM) 0.5 Mg Tablet, 1 TAB PO TID, #30 TAB 03/22/16 Zolpidem Tartrate (ZOLPIDEM TARTRATE) 5 Mg Tablet, 2 TAB PO QHS, #30 TAB 2 Refills 10/31/14 Discontinued Reported Medications Acetaminophen (TYLENOL EXTRA STRENGTH) 500 Mg Tablet, 500 MG PO 03/22/16 Scheduled Brexpiprazole (Rexulti), 2 MG PO DAILY, (Reported) Clonazepam (Clonazepam), 1 TAB PO TID, (Reported) Clonazepam (Clonazepam), 1.5 TAB PO QHS, (Reported) Furosemide (Furosemide), 1 TAB PO DAILY, (Reported) Gabapentin (Gabapentin), 600 MG PO TID, (Reported) Gabapentin (Gabapentin), 1,200 MG PO HS, (Reported) Metolazone (Metolazone), 5 MG PO DAILY, (Reported) Mirtazapine (Mirtazapine), 7.5 MG PO QHS, (Reported) Multivitamin (Multivitamins), 1 TAB PO DAILY, (Reported) Potassium Chloride (Potassium Chloride), 20 MEQ PO BID, (Reported) Zolpidem Tartrate (Zolpidem Tartrate), 2 TAB PO QHS, (Reported) Discontinued Medications Acetaminophen (Tylenol Extra Strength), 500 MG PO, (Reported) FOLLOW UP APPOINTMENT: f/u in clinic as necessary, call with any concerns Time Spent Total time spent with patient 30 minutes for coordination of care, counseling, and education. MEERA RIGGS MD Jul 27, 2018 15:40
== END 2018-07-27 16:35 | disposition home or self-care (01) | DRG 690 ==
LOC: ER 12:01 → 5 SOUTH 14:37
PROVIDERS: ADMIT Internal Medicine Cardiovascular Disease; ATTEND Internal Medicine Cardiovascular Disease
DX: N39.0 Urinary tract infection, site not specified (principal); K57.30 Diverticulosis of large intestine without perforation or abscess without bleeding; I50.9 Heart failure, unspecified; I11.0 Hypertensive heart disease with heart failure; F32.9 Major depressive disorder, single episode, unspecified; J44.9 Chronic obstructive pulmonary disease, unspecified; K21.9 Gastro-esophageal reflux disease without esophagitis; F41.9 Anxiety disorder, unspecified; M19.90 Unspecified osteoarthritis, unspecified site; G47.30 Sleep apnea, unspecified; E66.9 Obesity, unspecified; G89.29 Other chronic pain; Z82.49 Family history of ischemic heart disease and other diseases of the circulatory system; Z83.3 Family history of diabetes mellitus; Z98.84 Bariatric surgery status; Z68.37 Body mass index [BMI] 37.0-37.9, adult; E86.0 Dehydration
CPT/HCPCS: 36415; 71045; 74176; 80053; 80307; 81001; 83690; 83880; 84484; 85025; 87045; 87086; 87186; 87324; 93005; 96361; 96374; 96375; J2405; J2543; J3010; J3490; J7030; 99285-25; G0479

== ENCOUNTER 2019-07-18 16:13 | Inpatient (IN) | payer BC, MEDICARE ==
[~2019-07-18] VITALS: Ht 152.4 cm; Wt 59.0 kg
[~2019-07-18 16:13] MED LIST changes: +CLON-77 PO; -CLON0.5T11 PO; -CLON1TAB4 PO; +CLONAZEPAM1 MG PO; +FURO80TA3 PO; -GABA-586 PO; +GABA300C18 PO; -GABA600T2 PO; +GABA600T7 PO; +HYDR-3164 PO; -HYDR-971 PO; +METO5TAB4 PO; +MULT1TAB52 PO; +OMEP40CA45 PO; -OMEP40CA5 PO; +POTA20TA82 PO
[2019-07-18] MEDS ORDERED: IV NORMAL SALINE 1000ML BAG 1,000 ML IV SCH (16:38)
[2019-07-18 17:00] LABS: BASO # 0.1 x10^3/uL (0.0-0.2); BASO % 1 % (0-3); EOS # 0.1 x10^3/uL (0.0-0.7); EOS % 1 % (0-3); HEMATOCRIT 37.8 % (36.0-47.0); HEMOGLOBIN 11.8 g/dL (12.0-15.5); LYMPH # 0.7 x10^3/uL (1.0-4.8); LYMPH % 7 % (24-48); MEAN CORPUSCULAR HEMOGLOBIN 21 pg (25-35); MEAN CORPUSCULAR HGB CONC 31 g/dL (31-37); MEAN CORPUSCULAR VOLUME 67 fL (79-100); MONO # 0.6 x10^3/uL (0.0-1.1); MONO % 6 % (0-9); NEUT # 8.4 x10^3/uL (1.8-7.7); NEUT % 85 % (31-73); PLATELET COUNT 318 x10^3/uL (140-400); RED BLOOD COUNT 5.62 x10^6/uL (3.50-5.40); RED CELL DISTRIBUTION WIDTH 18.9 % (11.5-14.5); WHITE BLOOD COUNT 9.9 x10^3/uL (4.0-11.0)
[2019-07-18 17:01] LABS: BILIRUBIN,URINE NEGATIVE (NEG); CLARITY,URINE CLOUDY; COLOR,URINE AMBER; NITRITE,URINE POSITIVE (NEG); PROTEIN,URINE 100 mg/dL (NEG-TRACE)
[2019-07-18 17:08] LABS: BARBITURATES NEG (NEG); BENZODIAZEPINES NEG (NEG); CANNABINOIDS NEG (NEG); COCAINE NEG (NEG); METHADONE NEG (NEG); OPIATES NEG (NEG); PHENCYCLIDINE NEG (NEG)
[2019-07-18 17:10] LABS: PROTHROMBIN TIME PATIENT 14.2 SEC (11.7-14.0)
[2019-07-18 17:11] LABS: AMPHETAMINE/METHAMPHETAMINE POS (NEG)
--- NOTE | 2019-07-18 17:14 | RAD ---
CT HEAD WO CONTRAST History: Confusion Comparison: None. Technique: Noncontrast CT imaging was performed of the head. Exposure: One or more of the following individualized dose reduction techniques were utilized for this examination: 1. Automated exposure control 2. Adjustment of the mA and/or kV according to patient size 3. Use of iterative reconstruction technique. Findings: There is some motion degradation. No acute extra-axial or parenchymal hemorrhage is identified. There is no significant intra-axial mass effect, midline shift, or extra-axial fluid collection. The woo-white differentiation of the major vascular territories is preserved. There is scattered likely mild ill-defined low-density of the supratentorial parenchyma greatest of the left frontal lobe. The ventricles, sulci, and cisterns are within normal limits in size and configuration. The mastoid air cells and the visualized paranasal sinuses are aerated. No acute calvarial abnormality is identified. Impression: 1. There is no evidence of acute intracranial hemorrhage. There is some scattered ill-defined low-density of the supratentorial parenchyma greatest of the left frontal lobe, nonspecific findings possibly due to chronic microvascular ischemic disease unless there is suspicion for other white matter disease. If there is clinical suspicion for evolving or acute ischemia, follow-up CT or MRI may be beneficial. Electronically signed by: Vincenzo Cornelius MD (07/18/2019 5:11 PM) [id number]
[2019-07-18 17:17] LABS: CALCIUM 9.5 mg/dL (8.5-10.1); CREATININE 0.9 mg/dL (0.6-1.0); GFR 63.9
[2019-07-18 17:21] LABS: BACTERIA,URINE MANY /HPF (0-FEW); HYALINE CASTS, URINE FEW /HPF; SQUAMOUS EPITHELIAL CELL,UR FEW /LPF; WBC,URINE 20-40 /HPF (0-4)
[2019-07-18 17:22] LABS: ALBUMIN 3.9 g/dL (3.4-5.0); ALBUMIN/GLOBULIN RATIO 1.1 (1.0-1.7); MAGNESIUM 2.2 mg/dL (1.8-2.4); TOTAL BILIRUBIN 0.3 mg/dL (0.2-1.0); TOTAL PROTEIN 7.5 g/dL (6.4-8.2)
--- NOTE | 2019-07-18 17:33 | RAD ---
PORTABLE CHEST 1V History: Confusion Comparison: 07/25/2018 Findings: Single view of the chest is submitted. There is no infiltrate, pneumothorax, or effusion. The pericardial cardiac silhouette is within normal limits in size. There is atherosclerotic calcification near aortic arch. Impression: 1. There is no radiographic evidence of acute cardiopulmonary disease. Electronically signed by: Vincenzo Cornelius MD (07/18/2019 5:30 PM) [id number]
[2019-07-18 17:46] LABS: PLT ESTIMATE ADEQUATE (ADEQUATE)
[2019-07-18 17:48] LABS: HYPOCHROMIA MOD
[2019-07-18 17:49] LABS: ANISOCYTOSIS SLIGHT; MICROCYTOSIS MARKED; POIKILOCYTOSIS SLIGHT; STOMATOCYTES OCC
[2019-07-18 17:50] LABS: OVALOCYTES FEW
--- NOTE | 2019-07-18 17:51 | PHYS DOC ---
Past Medical History Past Medical History: Anemia, Arthritis, CHF, Depression, GI Bleed, Hypertension, Seizure Additional Past Medical Histor: diarrhea; "Carcinoma of back", chronic back pain Past Surgical History: Cholecystectomy, Tonsillectomy, Other Additional Past Surgical Histo: gastric sleeve sx, HERNIA Alcohol Use: Rarely Drug Use: None Adult General Chief Complaint Chief Complaint: ALTERED MENTAL STATUS [facility] HPI Patient is a 59 year old female patient with history of seizure who presents by EMS because of altered level of consciousness. Patient was in her usual condition this morning by her and found her sitting on her recliner of consciousness and being confused and not acting like her usual. Patient is alert and oriented 3 but answering the question with some pause. Patient is not able to remember what happened to her today. Patient state she usually gets altered level of consciousness with UTI and dehydration and had diarrhea for the last 3 days and he thinks she has UTI. Review of Systems Review of Systems Constitutional: Denies fever or chills [] Eyes: Denies change in visual acuity, redness, or eye pain [] HENT: Denies nasal congestion or sore throat [] Respiratory: Denies cough or shortness of breath [] Cardiovascular: No additional information not addressed in HPI [] GI: Denies abdominal pain, nausea, vomiting, bloody stools or diarrhea [] : Denies dysuria or hematuria [] Musculoskeletal: Denies back pain or joint pain [] Integument: Denies rash or skin lesions [] Neurologic: Denies headache, focal weakness or sensory changes [] Endocrine: Denies polyuria or polydipsia [] All other systems were reviewed and found to be within normal limits, except as documented in this note. Current Medications Current Medications Current Medications Medications (Trade) Dose Ordered Sig/Akil Start Time Stop Time Status Last Admin Dose Admin Ceftriaxone Sodium (Rocephin) 1 gm 1X ONCE 07/18/19 18:00 07/18/19 18:01 DC 07/18/19 18:02 1 GM Ketorolac Tromethamine (Toradol 30mg Vial) 30 mg 1X ONCE 07/18/19 19:00 07/18/19 19:01 Potassium Chloride (Klor-Con) 40 meq 1X ONCE 07/18/19 18:15 07/18/19 18:16 07/18/19 18:00 40 MEQ Sodium Chloride 1,000 ml @ 1,000 mls/hr Q1H 07/18/19 16:38 07/18/19 17:37 DC 07/18/19 17:25 1,000 MLS/HR Vancomycin HCl 250 ml @ 250 mls/hr 1X ONCE 07/18/19 18:00 07/18/19 18:59 Allergies Allergies Allergies Coded Allergies Type Severity Reaction Last Updated Verified guaifenesin Allergy Intermediate 11/26/15 Yes meperidine Allergy Intermediate 07/26/18 Yes Physical Exam Physical Exam Constitutional: Well nourished, mild distress, non-toxic appearance. [] HENT: Normocephalic, atraumatic, bilateral external ears normal, oropharynx moist, no oral exudates, nose normal. [] Eyes: PERRLA, EOMI, conjunctiva normal, no discharge. [] Neck: Normal range of motion, no tenderness, supple, no stridor. [] Cardiovascular:Heart rate regular rhythm, no murmur [] Lungs & Thorax: Bilateral breath sounds clear to auscultation [] Abdomen: Bowel sounds normal, soft, no tenderness, no masses, no pulsatile masses. [] Skin: Warm, dry, no erythema, no rash. [] Back: No tenderness, no CVA tenderness. [] Extremities: No tenderness, no cyanosis, no clubbing, ROM intact. Neurologic: Alert and oriented X 3 but is somnolent, normal motor function, normal sensory function, no focal deficits noted. [] Psychologic: Unable to evaluate Current Patient Data Vital Signs Vital Signs Date Time Temp Pulse Resp B/P (MAP) Pulse Ox O2 Delivery O2 Flow Rate FiO2 07/18/19 16:32 98.9 92 18 169/84 (112) 94 Room Air 98.9 Lab Values Laboratory Tests Test 07/18/19 16:27 07/18/19 16:45 Urine Collection Type Void Urine Color Zabrina Urine Clarity Cloudy Urine pH 6.0 Urine Specific [place] 1.025 Urine Protein 100 mg/dL (NEG-TRACE) Urine Glucose (UA) Negative mg/dL (NEG) Urine Ketones (Stick) Negative mg/dL (NEG) Urine Blood Large (NEG) Urine Nitrite Positive (NEG) Urine Bilirubin Negative (NEG) Urine Urobilinogen Dipstick 1.0 mg/dL (0.2 mg/dL) Urine Leukocyte Esterase Moderate (NEG) Urine RBC 6-10 /HPF (0-2) Urine WBC 20-40 /HPF (0-4) Urine Squamous Epithelial Cells Few /LPF Urine Bacteria Many /HPF (0-FEW) Urine Hyaline Casts Few /HPF Urine Mucus Slight /LPF Urine Opiates Screen Neg (NEG) Urine Methadone Screen Neg (NEG) Urine Barbiturates Neg (NEG) Urine Phencyclidine Screen Neg (NEG) Urine Amphetamine/Methamphetamine Pos (NEG) Urine Benzodiazepines Screen Neg (NEG) Urine Cocaine Screen Neg (NEG) Urine Cannabinoids Screen Neg (NEG) Urine Ethyl Alcohol Neg (NEG) White Blood Count 9.9 x10^3/uL (4.0-11.0) Red Blood Count 5.62 x10^6/uL (3.50-5.40) H Hemoglobin 11.8 g/dL (12.0-15.5) L Hematocrit 37.8 % (36.0-47.0) Mean Corpuscular Volume 67 fL (79-100) L Mean Corpuscular Hemoglobin 21 pg (25-35) L Mean Corpuscular Hemoglobin Concent 31 g/dL (31-37) Red Cell Distribution Width 18.9 % (11.5-14.5) H Platelet Count 318 x10^3/uL (140-400) Neutrophils (%) (Auto) 85 % (31-73) H Lymphocytes (%) (Auto) 7 % (24-48) L Monocytes (%) (Auto) 6 % (0-9) Eosinophils (%) (Auto) 1 % (0-3) Basophils (%) (Auto) 1 % (0-3) Neutrophils # (Auto) 8.4 x10^3/uL (1.8-7.7) H Lymphocytes # (Auto) 0.7 x10^3/uL (1.0-4.8) L Monocytes # (Auto) 0.6 x10^3/uL (0.0-1.1) Eosinophils # (Auto) 0.1 x10^3/uL (0.0-0.7) Basophils # (Auto) 0.1 x10^3/uL (0.0-0.2) Platelet Estimate Adequate (ADEQUATE) Hypochromasia Mod Poikilocytosis Slight Anisocytosis Slight Microcytosis Marked Ovalocytes Few Stomatocytes Occ Prothrombin Time 14.2 SEC (11.7-14.0) H Prothrombin Time INR 1.1 (0.8-1.1) Sodium Level 132 mmol/L (136-145) L Potassium Level 3.0 mmol/L (3.5-5.1) L Chloride Level 99 mmol/L (98-107) Carbon Dioxide Level 20 mmol/L (21-32) L Anion Gap 13 (6-14) Blood Urea Nitrogen 14 mg/dL (7-20) Creatinine 0.9 mg/dL (0.6-1.0) Estimated GFR (Cockcroft-Gault) 63.9 BUN/Creatinine Ratio 16 (6-20) Glucose Level 162 mg/dL (70-99) H Lactic Acid Level 3.6 mmol/L (0.4-2.0) H Calcium Level 9.5 mg/dL (8.5-10.1) Magnesium Level 2.2 mg/dL (1.8-2.4) Total Bilirubin 0.3 mg/dL (0.2-1.0) Aspartate Amino Transferase (AST) 32 U/L (15-37) Alanine Aminotransferase (ALT) 40 U/L (14-59) Alkaline Phosphatase 175 U/L (46-116) H Creatine Kinase 62 U/L (26-192) Troponin I Quantitative < 0.017 ng/mL (0.000-0.055) XF-Gnd-D-Type Natriuretic Peptide 123 pg/mL (0-124) Total Protein 7.5 g/dL (6.4-8.2) Albumin 3.9 g/dL (3.4-5.0) Albumin/Globulin Ratio 1.1 (1.0-1.7) Lipase 238 U/L (73-393) Laboratory Tests 07/18/19 16:45 Laboratory Tests 07/18/19 16:45 EKG EKG EKG interpreted by me. EKG at 1727 showed normal sinus rhythm at rate of 89, right fourth axis, Q waves in inferior leads, no acute ST and T-wave elevation. Radiology/Procedures Radiology/Procedures [][facility] [address] [place] [address] IMAGING REPORT Signed PATIENT: WILY CALDERON ACCOUNT: [id number] : 1960 LOCATION: ER AGE: 59 SEX: F EXAM STATUS: REG ER ORD. PHYSICIAN: JEREMIAH MCGUIRE MD REASON: confusion PROCEDURE: PORTABLE CHEST 1V PORTABLE CHEST 1V History: Confusion Comparison: 07/25/2018 Findings: Single view of the chest is submitted. There is no infiltrate, pneumothorax, or effusion. The pericardial cardiac silhouette is within normal limits in size. There is atherosclerotic calcification near aortic arch. Impression: 1. There is no radiographic evidence of acute cardiopulmonary disease. Electronically signed by: Loco Cornelius MD (07/18/2019 5:30 PM) [facility] DICTATED and SIGNED BY: LOCO CORNELIUS MD DATE: 07/18/19 1730 [facility] [address] [place] [address] IMAGING REPORT Signed PATIENT: WILY CALDERON ACCOUNT: [id number] : 1960 LOCATION: ER AGE: 59 SEX: F EXAM STATUS: REG ER ORD. PHYSICIAN: JEREMIAH MCGUIRE MD REASON: confusion PROCEDURE: CT HEAD WO CONTRAST CT HEAD WO CONTRAST History: Confusion Comparison: None. Technique: Noncontrast CT imaging was performed of the head. Exposure: One or more of the following individualized dose reduction techniques were utilized for this examination: 1. Automated exposure control 2. Adjustment of the mA and/or kV according to patient size 3. Use of iterative reconstruction technique. Findings: There is some motion degradation. No acute extra-axial or parenchymal hemorrhage is identified. There is no significant intra-axial mass effect, midline shift, or extra-axial fluid collection. The woo-white differentiation of the major vascular territories is preserved. There is scattered likely mild ill-defined low-density of the supratentorial parenchyma greatest of the left frontal lobe. The ventricles, sulci, and cisterns are within normal limits in size and configuration. The mastoid air cells and the visualized paranasal sinuses are aerated. No acute calvarial abnormality is identified. Impression: 1. There is no evidence of acute intracranial hemorrhage. There is some scattered ill-defined low-density of the supratentorial parenchyma greatest of the left frontal lobe, nonspecific findings possibly due to chronic microvascular ischemic disease unless there is suspicion for other white matter disease. If there is clinical suspicion for evolving or acute ischemia, follow-up CT or MRI may be beneficial. Electronically signed by: Loco Cornelius MD (07/18/2019 5:11 PM) [facility] DICTATED and SIGNED BY: LOCO CORNELIUS MD DATE: 07/18/19 171 Course & Med Decision Making Course & Med Decision Making Pertinent Labs and Imaging studies reviewed. (See chart for details) Evaluation of patient in ER showed 59-year-old female patient with history of seizure disorder brought in by EMS because of confusion. Patient gradually became more alert and oriented and as stated. She had the seizure today. Patient had positive drug screen for methamphetamines/amphetamine did not act agitated and not taking medication that caused positive methamphetamine test. UA showed UTI and patient treated with Rocephin and IV fluids in ER.Patient requiring admission for further evaluation and treatment. Discussed with Dr. Albarran who is in agreement with admission. Discussed findings and plan with patient and family, who acknowledge understanding and agreement. Dragon Disclaimer Dragon Disclaimer This electronic medical record was generated, in whole or in part, using a voice recognition dictation system. Departure Departure Impression: Primary Impression: Sepsis Additional Impressions: UTI (urinary tract infection) Anemia Hypokalemia Altered level of consciousness Hyponatremia Disposition: ADMITTED INPATIENT (at 1810) Admitting Physician: SELVIN (Dr. Albarran at 1800) Condition: IMPROVED Referrals: PARAG PAREKH MD (PCP) Critical Care Time Critical care time was 60 minutes exclusive of procedures. Date and Time of Reassessment Date: Jul 18, 2019 Time: 17:51 Fluid Challenge Is the fluid challenge complet: Yes IBW Target Volume Used: Yes BMI > 30: No Vital Signs Vital Signs: Vital Signs Date Time Temp Pulse Resp B/P (MAP) Pulse Ox O2 Delivery O2 Flow Rate FiO2 07/18/19 16:32 98.9 92 18 169/84 (112) 94 Room Air 98.9 Temperature Source: Oral Respirations Respiratory Pattern: Normal Cardiovascular Pulse Rhythm: Regular Heart: Nml rate, reg. rhythm Lung Sounds Breath Sounds: Clear Capillary Refil Capillary Refill: Rt Hand < 3 seconds Peripheral Pulse Pulse Location: Radial Pulse Strength: Normal (2+) Pulse Assessment Method: NIBP Problem Qualifiers Primary Impression: Sepsis Sepsis type: sepsis due to unspecified organism Sepsis acute organ dysfunction status: unspecified Qualified Codes: A41.9 - Sepsis, unspecified organism Additional Impressions: UTI (urinary tract infection) Urinary tract infection type: site unspecified Hematuria presence: with hematuria Qualified Codes: N39.0 - Urinary tract infection, site not specified; R31.9 - Hematuria, unspecified Anemia Anemia type: unspecified type Qualified Codes: D64.9 - Anemia, unspecified JEREMIAH MCGUIRE MD Jul 18, 2019 17:51
[2019-07-18] MEDS ORDERED: VANCOMYCIN 1GM IVPB FOR OMNI 250 ML IV ONE (18:00)
[2019-07-18] MEDS ORDERED: cefTRIAXone IV Push 1 GM VIAL. IVP ONE (18:00)
[2019-07-18] MEDS ORDERED: POTASSIUM CHLORIDE 20 MEQ TABLET.ER. PO ONE ×2 (18:15→19:00)
[2019-07-18] MEDS: clonazePAM 0.5 MG TABLET PO SCH (18:30)
[2019-07-18] MEDS: GABAPENTIN 300 MG CAPSULE. PO SCH (18:30)
[2019-07-18] MEDS: IV NORMAL SALINE 1000ML BAG 1,000 ML IV SCH (18:34)
[2019-07-18] MEDS ORDERED: ZOLPIDEM 5 MG TABLET. PO PRN (18:45)
[2019-07-18] MEDS ORDERED: KETOROLAC 30 MG/ML VIAL. IVP ONE (19:00)
--- NOTE | 2019-07-18 19:08 | HP ---
ADMIT DATE: 07/18/2019 CHIEF COMPLAINT: Mental status change. HISTORY OF PRESENT ILLNESS: The patient is a pleasant middle-aged female, who had mental status change. She has a known history of seizure disorders. Her states she has been acting that she may have had a seizure again. We did some labs. She is showing a lactic acidosis elevation and probable sepsis. She also has a UTI. CT of the head did not show any acute changes other than microvascular disease. I discussed the case with ER physician and the and the nurse. We are going to admit the patient and give her IV antibiotics and consult Neurology and Infectious Disease. PAST MEDICAL HISTORY: Previous seizures, anemia, arthritis, CHF, depression, GI bleed, hypertension, diarrhea, carcinoma of the back, chronic pain, cholecystectomy, tonsillectomy, gastric sleeve, and hernia repair. ALLERGIES: GUAIFENESIN and MEPERIDINE. FAMILY HISTORY: Coronary artery disease. SOCIAL HISTORY: She lives at home with her . She does not drink, smoke or take drugs. MEDICATIONS: Reviewed, please refer to the MRAD. REVIEW OF SYSTEMS: Unable to obtain. The patient cannot talk currently. PHYSICAL EXAMINATION: VITALS: Within normal limits and are stable. GENERAL: No apparent distress. Alert and oriented. HEENT: Head is normocephalic, atraumatic, pupils were equally round and reactive to light and accommodation. NECK: Supple, no JVD, no thyromegaly was noted. LUNGS: Clear to auscultation in all lung vázquez without rhonchi or wheezing. HEART: RRR, S1, S2 present. Peripheral pulses intact, no obvious murmurs were noted. ABDOMEN: Soft, nontender. Positive bowel sounds no organomegaly, normal bowel sounds. EXTREMITIES: Without any cyanosis, clubbing, or edema. Pedal pulses intact, Homans sign is negative. NEUROLOGIC: Normal speech, normal tone. A & O x3, moves all extremities, no obvious focal deficits. She is nonverbal other than one word. PSYCHIATRIC: Normal affect, normal mood. Stable. SKIN: No ulcerations or rashes, good skin turgor, no jaundice. VASCULAR: Good capillary refill, neurovascular bundle appears to be intact. LABORATORY DATA: Lactic acid level was 2.6. Hemoglobin is 11.8. Sodium is 132, potassium 3. Urinalysis, moderate leukocyte esterase, 20-40 white cells. Drug screen is positive for amphetamines/methamphetamine. INR is 1.1. ASSESSMENT AND PLAN: Mental status change with urinary tract infection, suspect a combination of seizures and metabolic encephalopathy and sepsis. The patient has been admitted. We will consult Infectious Disease and Neurology. Intravenous antibiotics, intravenous fluids, frequent labs, physical therapy, occupational therapy, deep venous thrombosis prophylaxis. Full code. PROGNOSIS: Guarded. FREDI SEALS DO DR: YULIA/jaime JOB#: [id number] / [id number]
[2019-07-18 19:52] VITALS: BP 144/71
[2019-07-18] MEDS ORDERED: clonazePAM 0.5 MG TABLET PO SCH ×2 (21:00)
[2019-07-18] MEDS ORDERED: GABAPENTIN 400 MG CAPSULE. PO SCH (21:00)
[2019-07-18] MEDS ORDERED: MIRTAZAPINE 7.5 MG TABLET. PO SCH (21:00)
[2019-07-18] MEDS ORDERED: GABAPENTIN 300 MG CAPSULE. PO SCH (21:00)
[2019-07-18] MEDS ORDERED: ZOLPIDEM 5 MG TABLET. PO SCH (21:00)
[2019-07-18] MEDS: POTASSIUM CHLORIDE 20 MEQ TABLET.ER. PO SCH (21:24)
[2019-07-18] MEDS ORDERED: HYDROcodone/APAP 5/325MG 1 TAB TABLET PO PRN (22:15)
[2019-07-18 23:14] VITALS: BP 151/81
[2019-07-19] MEDS: IV NORMAL SALINE 1000ML BAG 1,000 ML IV SCH ×2 (02:41→10:23)
[2019-07-19 03:47] VITALS: BP 130/77
[2019-07-19] MEDS: clonazePAM 0.5 MG TABLET PO SCH ×2 (06:41→12:25)
[2019-07-19] MEDS: GABAPENTIN 300 MG CAPSULE. PO SCH ×2 (06:41→12:25)
--- NOTE | 2019-07-19 06:50 | EKG ---
[facility] [address] [place] [address] Test Date: 2019-07-18 Test Time: 17:27:42 Pat Name: WILY CALDERON Department: Room: [facility] Gender: F Executive Relations Specialist: : 1960 Requested By: JEREMIAH MCGUIRE Order Number: [id number] Reading MD: Emiliano Little MD Measurements Intervals Novice Rate: 89 P: -19 SC: 180 QRS: 96 QRSD: 90 T: 26 QT: 382 QTc: 466 Interpretive Statements SINUS RHYTHM BASELINE ARTIFACT NON-SPECIFIC ST/T CHANGES Electronically Signed On 07-29-2019 9:41:57 CDT by Emiliano Little MD
[2019-07-19 07:20] VITALS: BP 143/79
--- NOTE | 2019-07-19 07:58 | PDOC ---
PROGRESS NOTES History of Present Illness History of Present Illness ASSESSMENT Mental status change urinary tract infection, HX seizures ACUTE metabolic encephalopathy sepsis. admitted. consult Infectious Disease CONSULT Neurology. Intravenous antibiotics, intravenous fluids, frequent labs, physical therapy, occupational therapy, deep venous thrombosis prophylaxis. Full code. Vitals Vitals Vital Signs Date Time Temp Pulse Resp B/P (MAP) Pulse Ox O2 Delivery O2 Flow Rate FiO2 07/19/19 03:47 98.8 101 18 130/77 (94) 94 Room Air 98.8 Physical Exam Physical Exam GENERAL: No apparent distress. Alert and oriented. HEENT: Head is normocephalic, atraumatic, pupils were equally round and reactive to light and accommodation. NECK: Supple, no JVD, no thyromegaly was noted. LUNGS: Clear to auscultation in all lung vázquez without rhonchi or wheezing. HEART: RRR, S1, S2 present. Peripheral pulses intact, no obvious murmurs were noted. ABDOMEN: Soft, nontender. Positive bowel sounds no organomegaly, normal bowel sounds. EXTREMITIES: Without any cyanosis, clubbing, or edema. Pedal pulses intact, Homans sign is negative. NEUROLOGIC: Normal speech, normal tone. A & O x3, moves all extremities, no obvious focal deficits. She is nonverbal other than one word. PSYCHIATRIC: Normal affect, normal mood. Stable. SKIN: No ulcerations or rashes, good skin turgor, no jaundice. VASCULAR: Good capillary refill, neurovascular bundle appears to be intact. Lungs: Wheezing Labs LABS Laboratory Tests Test 07/18/19 16:27 07/18/19 16:45 07/18/19 20:10 Urine Collection Type Void Urine Color Zabrina Urine Clarity Cloudy Urine pH 6.0 Urine Specific [place] 1.025 Urine Protein 100 mg/dL (NEG-TRACE) Urine Glucose (UA) Negative mg/dL (NEG) Urine Ketones (Stick) Negative mg/dL (NEG) Urine Blood Large (NEG) Urine Nitrite Positive (NEG) Urine Bilirubin Negative (NEG) Urine Urobilinogen Dipstick 1.0 mg/dL (0.2 mg/dL) Urine Leukocyte Esterase Moderate (NEG) Urine RBC 6-10 /HPF (0-2) Urine WBC 20-40 /HPF (0-4) Urine Squamous Epithelial Cells Few /LPF Urine Bacteria Many /HPF (0-FEW) Urine Hyaline Casts Few /HPF Urine Mucus Slight /LPF Urine Opiates Screen Neg (NEG) Urine Methadone Screen Neg (NEG) Urine Barbiturates Neg (NEG) Urine Phencyclidine Screen Neg (NEG) Urine Amphetamine/Methamphetamine Pos (NEG) Urine Benzodiazepines Screen Neg (NEG) Urine Cocaine Screen Neg (NEG) Urine Cannabinoids Screen Neg (NEG) Urine Ethyl Alcohol Neg (NEG) White Blood Count 9.9 x10^3/uL (4.0-11.0) Red Blood Count 5.62 x10^6/uL (3.50-5.40) Hemoglobin 11.8 g/dL (12.0-15.5) Hematocrit 37.8 % (36.0-47.0) Mean Corpuscular Volume 67 fL (79-100) Mean Corpuscular Hemoglobin 21 pg (25-35) Mean Corpuscular Hemoglobin Concent 31 g/dL (31-37) Red Cell Distribution Width 18.9 % (11.5-14.5) Platelet Count 318 x10^3/uL (140-400) Neutrophils (%) (Auto) 85 % (31-73) Lymphocytes (%) (Auto) 7 % (24-48) Monocytes (%) (Auto) 6 % (0-9) Eosinophils (%) (Auto) 1 % (0-3) Basophils (%) (Auto) 1 % (0-3) Neutrophils # (Auto) 8.4 x10^3/uL (1.8-7.7) Lymphocytes # (Auto) 0.7 x10^3/uL (1.0-4.8) Monocytes # (Auto) 0.6 x10^3/uL (0.0-1.1) Eosinophils # (Auto) 0.1 x10^3/uL (0.0-0.7) Basophils # (Auto) 0.1 x10^3/uL (0.0-0.2) Platelet Estimate Adequate (ADEQUATE) Hypochromasia Mod Poikilocytosis Slight Anisocytosis Slight Microcytosis Marked Ovalocytes Few Stomatocytes Occ Prothrombin Time 14.2 SEC (11.7-14.0) Prothromb Time International Ratio 1.1 (0.8-1.1) Sodium Level 132 mmol/L (136-145) Potassium Level 3.0 mmol/L (3.5-5.1) Chloride Level 99 mmol/L (98-107) Carbon Dioxide Level 20 mmol/L (21-32) Anion Gap 13 (6-14) Blood Urea Nitrogen 14 mg/dL (7-20) Creatinine 0.9 mg/dL (0.6-1.0) Estimated GFR (Cockcroft-Gault) 63.9 BUN/Creatinine Ratio 16 (6-20) Glucose Level 162 mg/dL (70-99) Lactic Acid Level 3.6 mmol/L (0.4-2.0) 0.8 mmol/L (0.4-2.0) Calcium Level 9.5 mg/dL (8.5-10.1) Magnesium Level 2.2 mg/dL (1.8-2.4) Total Bilirubin 0.3 mg/dL (0.2-1.0) Aspartate Amino Transf (AST/SGOT) 32 U/L (15-37) Alanine Aminotransferase (ALT/SGPT) 40 U/L (14-59) Alkaline Phosphatase 175 U/L (46-116) Creatine Kinase 62 U/L (26-192) Troponin I Quantitative < 0.017 ng/mL (0.000-0.055) AX-Vlg-P-Type Natriuretic Peptide 123 pg/mL (0-124) Total Protein 7.5 g/dL (6.4-8.2) Albumin 3.9 g/dL (3.4-5.0) Albumin/Globulin Ratio 1.1 (1.0-1.7) Lipase 238 U/L (73-393) Assessment and Plan Assessmemt and Plan Problems Medical Problems: (1) Altered level of consciousness Status: Acute (2) Anemia Status: Acute (3) Hypokalemia Status: Acute (4) Hyponatremia Status: Acute (5) Sepsis Status: Acute (6) UTI (urinary tract infection) Status: Acute Comment Review of Relevant I have reviewed the following items danny (where applicable) has been applied. Labs Laboratory Tests Test 07/18/19 16:27 07/18/19 16:45 07/18/19 20:10 Urine Collection Type Void Urine Color Zabrina Urine Clarity Cloudy Urine pH 6.0 Urine Specific [place] 1.025 Urine Protein 100 mg/dL (NEG-TRACE) Urine Glucose (UA) Negative mg/dL (NEG) Urine Ketones (Stick) Negative mg/dL (NEG) Urine Blood Large (NEG) Urine Nitrite Positive (NEG) Urine Bilirubin Negative (NEG) Urine Urobilinogen Dipstick 1.0 mg/dL (0.2 mg/dL) Urine Leukocyte Esterase Moderate (NEG) Urine RBC 6-10 /HPF (0-2) Urine WBC 20-40 /HPF (0-4) Urine Squamous Epithelial Cells Few /LPF Urine Bacteria Many /HPF (0-FEW) Urine Hyaline Casts Few /HPF Urine Mucus Slight /LPF Urine Opiates Screen Neg (NEG) Urine Methadone Screen Neg (NEG) Urine Barbiturates Neg (NEG) Urine Phencyclidine Screen Neg (NEG) Urine Amphetamine/Methamphetamine Pos (NEG) Urine Benzodiazepines Screen Neg (NEG) Urine Cocaine Screen Neg (NEG) Urine Cannabinoids Screen Neg (NEG) Urine Ethyl Alcohol Neg (NEG) White Blood Count 9.9 x10^3/uL (4.0-11.0) Red Blood Count 5.62 x10^6/uL (3.50-5.40) Hemoglobin 11.8 g/dL (12.0-15.5) Hematocrit 37.8 % (36.0-47.0) Mean Corpuscular Volume 67 fL (79-100) Mean Corpuscular Hemoglobin 21 pg (25-35) Mean Corpuscular Hemoglobin Concent 31 g/dL (31-37) Red Cell Distribution Width 18.9 % (11.5-14.5) Platelet Count 318 x10^3/uL (140-400) Neutrophils (%) (Auto) 85 % (31-73) Lymphocytes (%) (Auto) 7 % (24-48) Monocytes (%) (Auto) 6 % (0-9) Eosinophils (%) (Auto) 1 % (0-3) Basophils (%) (Auto) 1 % (0-3) Neutrophils # (Auto) 8.4 x10^3/uL (1.8-7.7) Lymphocytes # (Auto) 0.7 x10^3/uL (1.0-4.8) Monocytes # (Auto) 0.6 x10^3/uL (0.0-1.1) Eosinophils # (Auto) 0.1 x10^3/uL (0.0-0.7) Basophils # (Auto) 0.1 x10^3/uL (0.0-0.2) Platelet Estimate Adequate (ADEQUATE) Hypochromasia Mod Poikilocytosis Slight Anisocytosis Slight Microcytosis Marked Ovalocytes Few Stomatocytes Occ Prothrombin Time 14.2 SEC (11.7-14.0) Prothromb Time International Ratio 1.1 (0.8-1.1) Sodium Level 132 mmol/L (136-145) Potassium Level 3.0 mmol/L (3.5-5.1) Chloride Level 99 mmol/L (98-107) Carbon Dioxide Level 20 mmol/L (21-32) Anion Gap 13 (6-14) Blood Urea Nitrogen 14 mg/dL (7-20) Creatinine 0.9 mg/dL (0.6-1.0) Estimated GFR (Cockcroft-Gault) 63.9 BUN/Creatinine Ratio 16 (6-20) Glucose Level 162 mg/dL (70-99) Lactic Acid Level 3.6 mmol/L (0.4-2.0) 0.8 mmol/L (0.4-2.0) Calcium Level 9.5 mg/dL (8.5-10.1) Magnesium Level 2.2 mg/dL (1.8-2.4) Total Bilirubin 0.3 mg/dL (0.2-1.0) Aspartate Amino Transf (AST/SGOT) 32 U/L (15-37) Alanine Aminotransferase (ALT/SGPT) 40 U/L (14-59) Alkaline Phosphatase 175 U/L (46-116) Creatine Kinase 62 U/L (26-192) Troponin I Quantitative < 0.017 ng/mL (0.000-0.055) FV-Gcp-I-Type Natriuretic Peptide 123 pg/mL (0-124) Total Protein 7.5 g/dL (6.4-8.2) Albumin 3.9 g/dL (3.4-5.0) Albumin/Globulin Ratio 1.1 (1.0-1.7) Lipase 238 U/L (73-393) Laboratory Tests Test 07/18/19 16:27 07/18/19 16:45 07/18/19 20:10 Urine Collection Type Void Urine Color Zabrina Urine Clarity Cloudy Urine pH 6.0 Urine Specific [place] 1.025 Urine Protein 100 mg/dL (NEG-TRACE) Urine Glucose (UA) Negative mg/dL (NEG) Urine Ketones (Stick) Negative mg/dL (NEG) Urine Blood Large (NEG) Urine Nitrite Positive (NEG) Urine Bilirubin Negative (NEG) Urine Urobilinogen Dipstick 1.0 mg/dL (0.2 mg/dL) Urine Leukocyte Esterase Moderate (NEG) Urine RBC 6-10 /HPF (0-2) Urine WBC 20-40 /HPF (0-4) Urine Squamous Epithelial Cells Few /LPF Urine Bacteria Many /HPF (0-FEW) Urine Hyaline Casts Few /HPF Urine Mucus Slight /LPF Urine Opiates Screen Neg (NEG) Urine Methadone Screen Neg (NEG) Urine Barbiturates Neg (NEG) Urine Phencyclidine Screen Neg (NEG) Urine Amphetamine/Methamphetamine Pos (NEG) Urine Benzodiazepines Screen Neg (NEG) Urine Cocaine Screen Neg (NEG) Urine Cannabinoids Screen Neg (NEG) Urine Ethyl Alcohol Neg (NEG) White Blood Count 9.9 x10^3/uL (4.0-11.0) Red Blood Count 5.62 x10^6/uL (3.50-5.40) Hemoglobin 11.8 g/dL (12.0-15.5) Hematocrit 37.8 % (36.0-47.0) Mean Corpuscular Volume 67 fL (79-100) Mean Corpuscular Hemoglobin 21 pg (25-35) Mean Corpuscular Hemoglobin Concent 31 g/dL (31-37) Red Cell Distribution Width 18.9 % (11.5-14.5) Platelet Count 318 x10^3/uL (140-400) Neutrophils (%) (Auto) 85 % (31-73) Lymphocytes (%) (Auto) 7 % (24-48) Monocytes (%) (Auto) 6 % (0-9) Eosinophils (%) (Auto) 1 % (0-3) Basophils (%) (Auto) 1 % (0-3) Neutrophils # (Auto) 8.4 x10^3/uL (1.8-7.7) Lymphocytes # (Auto) 0.7 x10^3/uL (1.0-4.8) Monocytes # (Auto) 0.6 x10^3/uL (0.0-1.1) Eosinophils # (Auto) 0.1 x10^3/uL (0.0-0.7) Basophils # (Auto) 0.1 x10^3/uL (0.0-0.2) Platelet Estimate Adequate (ADEQUATE) Hypochromasia Mod Poikilocytosis Slight Anisocytosis Slight Microcytosis Marked Ovalocytes Few Stomatocytes Occ Prothrombin Time 14.2 SEC (11.7-14.0) Prothromb Time International Ratio 1.1 (0.8-1.1) Sodium Level 132 mmol/L (136-145) Potassium Level 3.0 mmol/L (3.5-5.1) Chloride Level 99 mmol/L (98-107) Carbon Dioxide Level 20 mmol/L (21-32) Anion Gap 13 (6-14) Blood Urea Nitrogen 14 mg/dL (7-20) Creatinine 0.9 mg/dL (0.6-1.0) Estimated GFR (Cockcroft-Gault) 63.9 BUN/Creatinine Ratio 16 (6-20) Glucose Level 162 mg/dL (70-99) Lactic Acid Level 3.6 mmol/L (0.4-2.0) 0.8 mmol/L (0.4-2.0) Calcium Level 9.5 mg/dL (8.5-10.1) Magnesium Level 2.2 mg/dL (1.8-2.4) Total Bilirubin 0.3 mg/dL (0.2-1.0) Aspartate Amino Transf (AST/SGOT) 32 U/L (15-37) Alanine Aminotransferase (ALT/SGPT) 40 U/L (14-59) Alkaline Phosphatase 175 U/L (46-116) Creatine Kinase 62 U/L (26-192) Troponin I Quantitative < 0.017 ng/mL (0.000-0.055) MI-Nmt-N-Type Natriuretic Peptide 123 pg/mL (0-124) Total Protein 7.5 g/dL (6.4-8.2) Albumin 3.9 g/dL (3.4-5.0) Albumin/Globulin Ratio 1.1 (1.0-1.7) Lipase 238 U/L (73-393) Medications Current Medications Sodium Chloride 1,000 ml @ 1,000 mls/hr Q1H IV Last administered on 07/18/19at 17:25; Start 07/18/19 at 16:38; Stop 07/18/19 at 17:37; Status DC Ceftriaxone Sodium (Rocephin) 1 gm 1X ONCE IVP Last administered on 07/18/19at 18:02; Start 07/18/19 at 18:00; Stop 07/18/19 at 18:01; Status DC Vancomycin HCl 250 ml @ 250 mls/hr 1X ONCE IV ; Start 07/18/19 at 18:00; Stop 07/18/19 at 18:59; Status DC Potassium Chloride (Klor-Con) 40 meq 1X ONCE PO Last administered on 07/18/19at 18:00; Start 07/18/19 at 18:15; Stop 07/18/19 at 18:16; Status DC Ketorolac Tromethamine (Toradol 30mg Vial) 30 mg 1X ONCE IVP Last administered on 07/18/19at 18:29; Start 07/18/19 at 19:00; Stop 07/18/19 at 19:01; Status DC Sodium Chloride 1,000 ml @ 125 mls/hr Q8H IV Last administered on 07/19/19at 02:41; Start 07/18/19 at 18:14; Stop 07/19/19 at 18:13 Potassium Chloride (Klor-Con) 40 meq 1X ONCE PO ; Start 07/18/19 at 19:00; Stop 07/18/19 at 19:01; Status DC Clonazepam (KlonoPIN) 0.5 mg TID PO ; Start 07/18/19 at 21:00; Status Cancel Furosemide (Lasix) 80 mg DAILY PO ; Start 07/19/19 at 09:00 Gabapentin (Neurontin) 600 mg TID PO ; Start 07/18/19 at 21:00; Status Cancel Mirtazapine (Remeron) 7.5 mg QHS PO Last administered on 07/18/19at 21:30; Start 07/18/19 at 21:00 Zolpidem Tartrate (Ambien) 5 mg QHS PO Last administered on 07/18/19at 21:29; Start 07/18/19 at 21:00 Non-Formulary Medication (Brexpiprazole (Rexulti)) 2 mg DAILY PO ; Start 07/19/19 at 09:00; Status UNV Clonazepam (KlonoPIN) 1.5 mg QHS PO Last administered on 07/18/19at 21:29; Start 07/18/19 at 21:00 Gabapentin (Neurontin) 1,200 mg QHS PO Last administered on 07/18/19at 21:30; Start 07/18/19 at 21:00 Metolazone (Zaroxolyn) 5 mg DAILY PO ; Start 07/19/19 at 09:00 Multivitamins (Thera M Plus) 1 tab DAILY PO ; Start 07/19/19 at 09:00 Potassium Chloride (Klor-Con) 20 meq BID PO Last administered on 07/18/19at 21:24; Start 07/18/19 at 21:00 Zolpidem Tartrate (Ambien) 5 mg PRN QHS PRN PO INSOMNIA; Start 07/18/19 at 1 8:45 Gabapentin (Neurontin) 600 mg [id number] PO Last administered on 07/19/19at 06:41; Start 07/18/19 at 18:30 Clonazepam (KlonoPIN) 0.5 mg [id number] PO Last administered on 07/19/19at 06:41; Start 07/18/19 at 18:30 Acetaminophen/ Hydrocodone Bitart (Lortab 5/325) 1 tab PRN Q4HRS PRN PO PAIN; Start 07/18/19 at 22:15 Nystatin (Nystop) 1 shannan BID TP ; Start 07/19/19 at 09:00 Active Scripts Active Reported Clonazepam 1 Mg Tablet 1.5 Tab PO QHS Metolazone 5 Mg Tablet 5 Mg PO DAILY Furosemide 80 Mg Tablet 1 Tab PO DAILY Potassium Chloride 20 Meq Tablet.er 20 Meq PO BID Multivitamins (Multivitamin) 1 Each Tablet 1 Tab PO DAILY Mirtazapine 15 Mg Tablet 7.5 Mg PO QHS Rexulti (Brexpiprazole) 2 Mg Tablet 2 Mg PO DAILY Gabapentin 600 Mg Tablet 1,200 Mg PO HS Gabapentin (Gabapentin) 300 Mg Capsule 600 Mg PO TID Clonazepam (Clonazepam) 0.5 Mg Tablet 1 Tab PO TID Zolpidem Tartrate 5 Mg Tablet 2 Tab PO QHS Vitals/I & O Vital Sign - Last 24 Hours 07/18/19 07/18/19 07/18/19 07/18/19 16:32 17:11 17:23 17:23 Temp 98.9 98.9 Pulse 92 96 96 90 Resp 18 18 18 B/P (MAP) 169/84 (112) Pulse Ox 94 94 96 96 O2 Delivery Room Air 07/18/19 07/18/19 07/18/19 07/19/19 19:52 20:30 23:14 03:47 Temp 98.8 98.4 98.8 98.8 98.4 98.8 Pulse 102 108 101 Resp 20 18 B/P (MAP) 144/71 (95) 151/81 (104) 130/77 (94) Pulse Ox 99 97 94 O2 Delivery Room Air Room Air Room Air Room Air Intake and Output 07/18/19 07/18/19 07/19/19 14:59 22:59 06:59 Intake Total 2000 ml 270 ml Output Total 3 ml Balance 2000 ml 267 ml FCO OSBORN MD Jul 19, 2019 07:58
[2019-07-19] MEDS ORDERED: NON FORMULARY ITEM (Brexpiprazole (Rexulti) 2 MG) PO SCH (09:00)
[2019-07-19] MEDS ORDERED: metOLazone 2.5 MG TABLET PO SCH (09:00)
[2019-07-19] MEDS ORDERED: levETIRAcetam 500 MG TABLET PO SCH (09:00)
[2019-07-19] MEDS ORDERED: NYSTATIN TOPICAL POWDER 15GM BOTTLE. TP SCH (09:00)
[2019-07-19] MEDS ORDERED: FUROSEMIDE 80 MG TABLET. PO SCH (09:00)
[2019-07-19] MEDS ORDERED: MULTIVITAMIN with MINERAL TABLET. PO SCH (09:00)
--- NOTE | 2019-07-19 09:50 | PDOC ---
PROGRESS NOTES Chief Complaint Chief Complaint ASSESSMENT Urinary tract infection Seizures ACUTE metabolic encephalopathy sepsis Epilepsy, breakthrough seizure, she has returned to baseline Chronic orthopedic gait disorder Psychiatric disease CONSULT Neurology - appreciate the help physical therapy - ok home - she refuses home health occupational therapy - ok home - she refuses home health deep venous thrombosis prophylaxis. Full code. History of Present Illness History of Present Illness Ms Murray is a 59yo F w/ PMHx seizures, anemia, arthritis, CHF, depression, GI bleed, hypertension, diarrhea, carcinoma of the back, chronic pain who comes with confusion. Found to likely be post-ictal. Did not have keppra on her med list. Seen by neurology, this has been reinstated and over the past 24 hours she has improved. She is asking to go back home with her . Already has a walker at home to get around. No CP or SOB. Vitals Vitals Vital Signs Date Time Temp Pulse Resp B/P (MAP) Pulse Ox O2 Delivery O2 Flow Rate FiO2 07/19/19 07:20 98.3 80 18 143/79 (100) 97 Room Air 98.3 Physical Exam Physical Exam GENERAL: No apparent distress. Alert and oriented. HEENT: Head is normocephalic, atraumatic, pupils were equally round and reactive to light and accommodation. NECK: Supple, no JVD, no thyromegaly was noted. LUNGS: Clear to auscultation in all lung vázquez without rhonchi or wheezing. HEART: RRR, S1, S2 present. Peripheral pulses intact, no obvious murmurs were noted. ABDOMEN: Soft, nontender. Positive bowel sounds no organomegaly, normal bowel sounds. EXTREMITIES: Without any cyanosis, clubbing, or edema. Pedal pulses intact, Homans sign is negative. NEUROLOGIC: Normal speech, normal tone. A & O x3, moves all extremities, no obvious focal deficits. She is nonverbal other than one word. PSYCHIATRIC: Normal affect, normal mood. Stable. SKIN: No ulcerations or rashes, good skin turgor, no jaundice. VASCULAR: Good capillary refill, neurovascular bundle appears to be intact. General: Alert, Oriented X3, Cooperative Heart: Regular rate, Normal S1, Normal S2 Lungs: Wheezing Labs LABS Laboratory Tests Test 07/18/19 16:27 07/18/19 16:45 07/18/19 20:10 Urine Collection Type Void Urine Color Zabrina Urine Clarity Cloudy Urine pH 6.0 Urine Specific [place] 1.025 Urine Protein 100 mg/dL (NEG-TRACE) Urine Glucose (UA) Negative mg/dL (NEG) Urine Ketones (Stick) Negative mg/dL (NEG) Urine Blood Large (NEG) Urine Nitrite Positive (NEG) Urine Bilirubin Negative (NEG) Urine Urobilinogen Dipstick 1.0 mg/dL (0.2 mg/dL) Urine Leukocyte Esterase Moderate (NEG) Urine RBC 6-10 /HPF (0-2) Urine WBC 20-40 /HPF (0-4) Urine Squamous Epithelial Cells Few /LPF Urine Bacteria Many /HPF (0-FEW) Urine Hyaline Casts Few /HPF Urine Mucus Slight /LPF Urine Opiates Screen Neg (NEG) Urine Methadone Screen Neg (NEG) Urine Barbiturates Neg (NEG) Urine Phencyclidine Screen Neg (NEG) Urine Amphetamine/Methamphetamine Pos (NEG) Urine Benzodiazepines Screen Neg (NEG) Urine Cocaine Screen Neg (NEG) Urine Cannabinoids Screen Neg (NEG) Urine Ethyl Alcohol Neg (NEG) White Blood Count 9.9 x10^3/uL (4.0-11.0) Red Blood Count 5.62 x10^6/uL (3.50-5.40) Hemoglobin 11.8 g/dL (12.0-15.5) Hematocrit 37.8 % (36.0-47.0) Mean Corpuscular Volume 67 fL (79-100) Mean Corpuscular Hemoglobin 21 pg (25-35) Mean Corpuscular Hemoglobin Concent 31 g/dL (31-37) Red Cell Distribution Width 18.9 % (11.5-14.5) Platelet Count 318 x10^3/uL (140-400) Neutrophils (%) (Auto) 85 % (31-73) Lymphocytes (%) (Auto) 7 % (24-48) Monocytes (%) (Auto) 6 % (0-9) Eosinophils (%) (Auto) 1 % (0-3) Basophils (%) (Auto) 1 % (0-3) Neutrophils # (Auto) 8.4 x10^3/uL (1.8-7.7) Lymphocytes # (Auto) 0.7 x10^3/uL (1.0-4.8) Monocytes # (Auto) 0.6 x10^3/uL (0.0-1.1) Eosinophils # (Auto) 0.1 x10^3/uL (0.0-0.7) Basophils # (Auto) 0.1 x10^3/uL (0.0-0.2) Platelet Estimate Adequate (ADEQUATE) Hypochromasia Mod Poikilocytosis Slight Anisocytosis Slight Microcytosis Marked Ovalocytes Few Stomatocytes Occ Prothrombin Time 14.2 SEC (11.7-14.0) Prothromb Time International Ratio 1.1 (0.8-1.1) Sodium Level 132 mmol/L (136-145) Potassium Level 3.0 mmol/L (3.5-5.1) Chloride Level 99 mmol/L (98-107) Carbon Dioxide Level 20 mmol/L (21-32) Anion Gap 13 (6-14) Blood Urea Nitrogen 14 mg/dL (7-20) Creatinine 0.9 mg/dL (0.6-1.0) Estimated GFR (Cockcroft-Gault) 63.9 BUN/Creatinine Ratio 16 (6-20) Glucose Level 162 mg/dL (70-99) Lactic Acid Level 3.6 mmol/L (0.4-2.0) 0.8 mmol/L (0.4-2.0) Calcium Level 9.5 mg/dL (8.5-10.1) Magnesium Level 2.2 mg/dL (1.8-2.4) Total Bilirubin 0.3 mg/dL (0.2-1.0) Aspartate Amino Transf (AST/SGOT) 32 U/L (15-37) Alanine Aminotransferase (ALT/SGPT) 40 U/L (14-59) Alkaline Phosphatase 175 U/L (46-116) Creatine Kinase 62 U/L (26-192) Troponin I Quantitative < 0.017 ng/mL (0.000-0.055) HG-[id number]-Y-Type Natriuretic Peptide 123 pg/mL (0-124) Total Protein 7.5 g/dL (6.4-8.2) Albumin 3.9 g/dL (3.4-5.0) Albumin/Globulin Ratio 1.1 (1.0-1.7) Lipase 238 U/L (73-393) Assessment and Plan Assessmemt and Plan Problems Medical Problems: (1) Altered level of consciousness Status: Acute (2) Anemia Status: Acute (3) Hypokalemia Status: Acute (4) Hyponatremia Status: Acute (5) Sepsis Status: Acute (6) UTI (urinary tract infection) Status: Acute Comment Review of Relevant I have reviewed the following items danny (where applicable) has been applied. Labs Laboratory Tests Test 07/18/19 16:27 07/18/19 16:45 07/18/19 20:10 Urine Collection Type Void Urine Color Zabrina Urine Clarity Cloudy Urine pH 6.0 Urine Specific [place] 1.025 Urine Protein 100 mg/dL (NEG-TRACE) Urine Glucose (UA) Negative mg/dL (NEG) Urine Ketones (Stick) Negative mg/dL (NEG) Urine Blood Large (NEG) Urine Nitrite Positive (NEG) Urine Bilirubin Negative (NEG) Urine Urobilinogen Dipstick 1.0 mg/dL (0.2 mg/dL) Urine Leukocyte Esterase Moderate (NEG) Urine RBC 6-10 /HPF (0-2) Urine WBC 20-40 /HPF (0-4) Urine Squamous Epithelial Cells Few /LPF Urine Bacteria Many /HPF (0-FEW) Urine Hyaline Casts Few /HPF Urine Mucus Slight /LPF Urine Opiates Screen Neg (NEG) Urine Methadone Screen Neg (NEG) Urine Barbiturates Neg (NEG) Urine Phencyclidine Screen Neg (NEG) Urine Amphetamine/Methamphetamine Pos (NEG) Urine Benzodiazepines Screen Neg (NEG) Urine Cocaine Screen Neg (NEG) Urine Cannabinoids Screen Neg (NEG) Urine Ethyl Alcohol Neg (NEG) White Blood Count 9.9 x10^3/uL (4.0-11.0) Red Blood Count 5.62 x10^6/uL (3.50-5.40) Hemoglobin 11.8 g/dL (12.0-15.5) Hematocrit 37.8 % (36.0-47.0) Mean Corpuscular Volume 67 fL (79-100) Mean Corpuscular Hemoglobin 21 pg (25-35) Mean Corpuscular Hemoglobin Concent 31 g/dL (31-37) Red Cell Distribution Width 18.9 % (11.5-14.5) Platelet Count 318 x10^3/uL (140-400) Neutrophils (%) (Auto) 85 % (31-73) Lymphocytes (%) (Auto) 7 % (24-48) Monocytes (%) (Auto) 6 % (0-9) Eosinophils (%) (Auto) 1 % (0-3) Basophils (%) (Auto) 1 % (0-3) Neutrophils # (Auto) 8.4 x10^3/uL (1.8-7.7) Lymphocytes # (Auto) 0.7 x10^3/uL (1.0-4.8) Monocytes # (Auto) 0.6 x10^3/uL (0.0-1.1) Eosinophils # (Auto) 0.1 x10^3/uL (0.0-0.7) Basophils # (Auto) 0.1 x10^3/uL (0.0-0.2) Platelet Estimate Adequate (ADEQUATE) Hypochromasia Mod Poikilocytosis Slight Anisocytosis Slight Microcytosis Marked Ovalocytes Few Stomatocytes Occ Prothrombin Time 14.2 SEC (11.7-14.0) Prothromb Time International Ratio 1.1 (0.8-1.1) Sodium Level 132 mmol/L (136-145) Potassium Level 3.0 mmol/L (3.5-5.1) Chloride Level 99 mmol/L (98-107) Carbon Dioxide Level 20 mmol/L (21-32) Anion Gap 13 (6-14) Blood Urea Nitrogen 14 mg/dL (7-20) Creatinine 0.9 mg/dL (0.6-1.0) Estimated GFR (Cockcroft-Gault) 63.9 BUN/Creatinine Ratio 16 (6-20) Glucose Level 162 mg/dL (70-99) Lactic Acid Level 3.6 mmol/L (0.4-2.0) 0.8 mmol/L (0.4-2.0) Calcium Level 9.5 mg/dL (8.5-10.1) Magnesium Level 2.2 mg/dL (1.8-2.4) Total Bilirubin 0.3 mg/dL (0.2-1.0) Aspartate Amino Transf (AST/SGOT) 32 U/L (15-37) Alanine Aminotransferase (ALT/SGPT) 40 U/L (14-59) Alkaline Phosphatase 175 U/L (46-116) Creatine Kinase 62 U/L (26-192) Troponin I Quantitative < 0.017 ng/mL (0.000-0.055) [id number]-Type Natriuretic Peptide 123 pg/mL (0-124) Total Protein 7.5 g/dL (6.4-8.2) Albumin 3.9 g/dL (3.4-5.0) Albumin/Globulin Ratio 1.1 (1.0-1.7) Lipase 238 U/L (73-393) Laboratory Tests Test 07/18/19 16:27 07/18/19 16:45 07/18/19 20:10 Urine Collection Type Void Urine Color Zabrina Urine Clarity Cloudy Urine pH 6.0 Urine Specific [place] 1.025 Urine Protein 100 mg/dL (NEG-TRACE) Urine Glucose (UA) Negative mg/dL (NEG) Urine Ketones (Stick) Negative mg/dL (NEG) Urine Blood Large (NEG) Urine Nitrite Positive (NEG) Urine Bilirubin Negative (NEG) Urine Urobilinogen Dipstick 1.0 mg/dL (0.2 mg/dL) Urine Leukocyte Esterase Moderate (NEG) Urine RBC 6-10 /HPF (0-2) Urine WBC 20-40 /HPF (0-4) Urine Squamous Epithelial Cells Few /LPF Urine Bacteria Many /HPF (0-FEW) Urine Hyaline Casts Few /HPF Urine Mucus Slight /LPF Urine Opiates Screen Neg (NEG) Urine Methadone Screen Neg (NEG) Urine Barbiturates Neg (NEG) Urine Phencyclidine Screen Neg (NEG) Urine Amphetamine/Methamphetamine Pos (NEG) Urine Benzodiazepines Screen Neg (NEG) Urine Cocaine Screen Neg (NEG) Urine Cannabinoids Screen Neg (NEG) Urine Ethyl Alcohol Neg (NEG) White Blood Count 9.9 x10^3/uL (4.0-11.0) Red Blood Count 5.62 x10^6/uL (3.50-5.40) Hemoglobin 11.8 g/dL (12.0-15.5) Hematocrit 37.8 % (36.0-47.0) Mean Corpuscular Volume 67 fL (79-100) Mean Corpuscular Hemoglobin 21 pg (25-35) Mean Corpuscular Hemoglobin Concent 31 g/dL (31-37) Red Cell Distribution Width 18.9 % (11.5-14.5) Platelet Count 318 x10^3/uL (140-400) Neutrophils (%) (Auto) 85 % (31-73) Lymphocytes (%) (Auto) 7 % (24-48) Monocytes (%) (Auto) 6 % (0-9) Eosinophils (%) (Auto) 1 % (0-3) Basophils (%) (Auto) 1 % (0-3) Neutrophils # (Auto) 8.4 x10^3/uL (1.8-7.7) Lymphocytes # (Auto) 0.7 x10^3/uL (1.0-4.8) Monocytes # (Auto) 0.6 x10^3/uL (0.0-1.1) Eosinophils # (Auto) 0.1 x10^3/uL (0.0-0.7) Basophils # (Auto) 0.1 x10^3/uL (0.0-0.2) Platelet Estimate Adequate (ADEQUATE) Hypochromasia Mod Poikilocytosis Slight Anisocytosis Slight Microcytosis Marked Ovalocytes Few Stomatocytes Occ Prothrombin Time 14.2 SEC (11.7-14.0) Prothromb Time International Ratio 1.1 (0.8-1.1) Sodium Level 132 mmol/L (136-145) Potassium Level 3.0 mmol/L (3.5-5.1) Chloride Level 99 mmol/L (98-107) Carbon Dioxide Level 20 mmol/L (21-32) Anion Gap 13 (6-14) Blood Urea Nitrogen 14 mg/dL (7-20) Creatinine 0.9 mg/dL (0.6-1.0) Estimated GFR (Cockcroft-Gault) 63.9 BUN/Creatinine Ratio 16 (6-20) Glucose Level 162 mg/dL (70-99) Lactic Acid Level 3.6 mmol/L (0.4-2.0) 0.8 mmol/L (0.4-2.0) Calcium Level 9.5 mg/dL (8.5-10.1) Magnesium Level 2.2 mg/dL (1.8-2.4) Total Bilirubin 0.3 mg/dL (0.2-1.0) Aspartate Amino Transf (AST/SGOT) 32 U/L (15-37) Alanine Aminotransferase (ALT/SGPT) 40 U/L (14-59) Alkaline Phosphatase 175 U/L (46-116) Creatine Kinase 62 U/L (26-192) Troponin I Quantitative < 0.017 ng/mL (0.000-0.055) JS-Vze-R-Type Natriuretic Peptide 123 pg/mL (0-124) Total Protein 7.5 g/dL (6.4-8.2) Albumin 3.9 g/dL (3.4-5.0) Albumin/Globulin Ratio 1.1 (1.0-1.7) Lipase 238 U/L (73-393) Medications Current Medications Sodium Chloride 1,000 ml @ 1,000 mls/hr Q1H IV Last administered on 07/18/19at 17:25; Start 07/18/19 at 16:38; Stop 07/18/19 at 17:37; Status DC Ceftriaxone Sodium (Rocephin) 1 gm 1X ONCE IVP Last administered on 07/18/19at 18:02; Start 07/18/19 at 18:00; Stop 07/18/19 at 18:01; Status DC Vancomycin HCl 250 ml @ 250 mls/hr 1X ONCE IV ; Start 07/18/19 at 18:00; Stop 07/18/19 at 18:59; Status DC Potassium Chloride (Klor-Con) 40 meq 1X ONCE PO Last administered on 07/18/19at 18:00; Start 07/18/19 at 18:15; Stop 07/18/19 at 18:16; Status DC Ketorolac Tromethamine (Toradol 30mg Vial) 30 mg 1X ONCE IVP Last administered on 07/18/19at 18:29; Start 07/18/19 at 19:00; Stop 07/18/19 at 19:01; Status DC Sodium Chloride 1,000 ml @ 125 mls/hr Q8H IV Last administered on 07/19/19at 02:41; Start 07/18/19 at 18:14; Stop 07/19/19 at 18:13 Potassium Chloride (Klor-Con) 40 meq 1X ONCE PO ; Start 07/18/19 at 19:00; Stop 07/18/19 at 19:01; Status DC Clonazepam (KlonoPIN) 0.5 mg TID PO ; Start 07/18/19 at 21:00; Status Cancel Furosemide (Lasix) 80 mg DAILY PO ; Start 07/19/19 at 09:00 Gabapentin (Neurontin) 600 mg TID PO ; Start 07/18/19 at 21:00; Status Cancel Mirtazapine (Remeron) 7.5 mg QHS PO Last administered on 07/18/19at 21:30; Start 07/18/19 at 21:00 Zolpidem Tartrate (Ambien) 5 mg QHS PO Last administered on 07/18/19at 21:29; Start 07/18/19 at 21:00 Non-Formulary Medication (Brexpiprazole (Rexulti)) 2 mg DAILY PO ; Start 07/19/19 at 09:00; Status UNV Clonazepam (KlonoPIN) 1.5 mg QHS PO Last administered on 07/18/19at 21:29; Start 07/18/19 at 21:00 Gabapentin (Neurontin) 1,200 mg QHS PO Last administered on 07/18/19at 21:30; Start 07/18/19 at 21:00 Metolazone (Zaroxolyn) 5 mg DAILY PO ; Start 07/19/19 at 09:00 Multivitamins (Thera M Plus) 1 tab DAILY PO ; Start 07/19/19 at 09:00 Potassium Chloride (Klor-Con) 20 meq BID PO Last administered on 07/18/19at 21:24; Start 07/18/19 at 21:00 Zolpidem Tartrate (Ambien) 5 mg PRN QHS PRN PO INSOMNIA; Start 07/18/19 at 18:45 Gabapentin (Neurontin) 600 mg [id number] PO Last administered on 07/19/19at 06:41; Start 07/18/19 at 18:30 Clonazepam (KlonoPIN) 0.5 mg [id number] PO Last administered on 07/19/19at 06:41; Start 07/18/19 at 18:30 Acetaminophen/ Hydrocodone Bitart (Lortab 5/325) 1 tab PRN Q4HRS PRN PO PAIN; Start 07/18/19 at 22:15 Nystatin (Nystop) 1 shannan BID TP ; Start 07/19/19 at 09:00 Levetiracetam (Keppra) 500 mg BID PO ; Start 07/19/19 at 09:00 Active Scripts Active Reported Clonazepam 1 Mg Tablet 1.5 Tab PO QHS Metolazone 5 Mg Tablet 5 Mg PO DAILY Furosemide 80 Mg Tablet 1 Tab PO DAILY Potassium Chloride 20 Meq Tablet.er 20 Meq PO BID Multivitamins (Multivitamin) 1 Each Tablet 1 Tab PO DAILY Mirtazapine 15 Mg Tablet 7.5 Mg PO QHS Rexulti (Brexpiprazole) 2 Mg Tablet 2 Mg PO DAILY Gabapentin 600 Mg Tablet 1,200 Mg PO HS Gabapentin (Gabapentin) 300 Mg Capsule 600 Mg PO TID Clonazepam (Clonazepam) 0.5 Mg Tablet 1 Tab PO TID Zolpidem Tartrate 5 Mg Tablet 2 Tab PO QHS Vitals/I & O Vital Sign - Last 24 Hours 07/18/19 07/18/19 07/18/19 07/18/19 16:32 17:11 17:23 17:23 Temp 98.9 98.9 Pulse 92 96 96 90 Resp 18 18 18 18 B/P (MAP) 169/84 (112) Pulse Ox 94 94 96 96 O2 Delivery Room Air 07/18/19 07/18/19 07/18/19 07/19/19 19:52 20:30 23:14 03:47 Temp 98.8 98.4 98.8 98.8 98.4 98.8 Pulse 102 108 101 Resp 20 18 18 B/P (MAP) 144/71 (95) 151/81 (104) 130/77 (94) Pulse Ox 99 97 94 O2 Delivery Room Air Room Air Room Air Room Air 07/19/19 07:20 Temp 98.3 98.3 Pulse 80 Resp 18 B/P (MAP) 143/79 (100) Pulse Ox 97 O2 Delivery Room Air Intake and Output 07/18/19 07/18/19 07/19/19 15:00 23:00 07:00 Intake Total 2000 ml 270 ml Output Total 3 ml Balance 2000 ml 267 ml JUSTYNA REED MD Jul 19, 2019 09:50
[2019-07-19] MEDS: POTASSIUM CHLORIDE 20 MEQ TABLET.ER. PO SCH (10:22)
--- NOTE | 2019-07-19 11:21 | PDOC2 ---
NEUROLOGY CONSULT Date of Admission Date of Admission DATE: 07/19/19 TIME: 11:14 Reason for Consult Reason for Consult: Seizure Referring Physician Referring Physician: Dr. Albarran PCP: Dr. Hays Source Source: Chart review, Patient History of Present Illness History of Present Illness The patient is a 59-year-old right-handed female who says that she has had seizures for the past 3 years, but has never seen a neurologist. She gets confused after a seizure and she fells like she had a seizure yesterday although no one witnessed it. She did have elevated lactic acid level. She says that she has had negative EEG and MRI studies in her primary physician, Dr. Clark, maintains her on levetiracetam. She says that it has been at least a year since her last seizure. She has chronic leg pain and numbness, gets around with a walker. Past Medical History Cardiovascular: CAD CENTRAL NERVOUS SYSTEM: Seizure GI: GERD, Other ( esophagitis, colitis, diarrhea) Heme/Onc: Anemia NOS Psych: Anxiety, Panic Musculoskeletal: Osteoarthritis, Other (neck pain, degenerative disc disease, foot fracture) Renal/: UTI Past Surgical History Past Surgical History: Cholecystectomy, Other (Cardiac catheterization, gastric sleeve, bilateral knee arthroscopies) Family History Family History: CAD, Other ( negative for seizures) Social History Social History , retired, no alcohol, smoke cigarettes Current Medications Current Medications Current Medications Sodium Chloride 1,000 ml @ 1,000 mls/hr Q1H IV Last administered on 07/18/19at 17:25; Start 07/18/19 at 16:38; Stop 07/18/19 at 17:37; Status DC Ceftriaxone Sodium (Rocephin) 1 gm 1X ONCE IVP Last administered on 07/18/19at 18:02; Start 07/18/19 at 18:00; Stop 07/18/19 at 18:01; Status DC Vancomycin HCl 250 ml @ 250 mls/hr 1X ONCE IV ; Start 07/18/19 at 18:00; Stop 07/18/19 at 18:59; Status DC Potassium Chloride (Klor-Con) 40 meq 1X ONCE PO Last administered on 07/18/19at 18:00; Start 07/18/19 at 18:15; Stop 07/18/19 at 18:16; Status DC Ketorolac Tromethamine (Toradol 30mg Vial) 30 mg 1X ONCE IVP Last administered on 07/18/19 18:29; Start 07/18/19 at 19:00; Stop 07/18/19 at 19:01; Status DC Sodium Chloride 1,000 ml @ 125 mls/hr Q8H IV Last administered on 07/19/19at 10:23; Start 07/18/19 at 18:14; Stop 07/19/19 at 18:13 Potassium Chloride (Klor-Con) 40 meq 1X ONCE PO ; Start 07/18/19 at 19:00; Stop 07/18/19 at 19:01; Status DC Clonazepam (KlonoPIN) 0.5 mg TID PO ; Start 07/18/19 at 21:00; Status Cancel Furosemide (Lasix) 80 mg DAILY PO Last administered on 07/19/19at 10:23; Start 07/19/19 at 09:00 Gabapentin (Neurontin) 600 mg TID PO ; Start 07/18/19 at 21:00; Status Cancel Mirtazapine (Remeron) 7.5 mg QHS PO Last administered on 07/18/19at 21:30; Start 07/18/19 at 21:00 Zolpidem Tartrate (Ambien) 5 mg QHS PO Last administered on 07/18/19 21:29; Start 07/18/19 at 21:00 Non-Formulary Medication (Brexpiprazole (Rexulti)) 2 mg DAILY PO ; Start 07/19/19 at 09:00; Status UNV Clonazepam (KlonoPIN) 1.5 mg QHS PO Last administered on 07/18/19at 21:29; Start 07/18/19 at 21:00 Gabapentin (Neurontin) 1,200 mg QHS PO Last administered on 07/18/19at 21:30; Start 07/18/19 at 21:00 Metolazone (Zaroxolyn) 5 mg DAILY PO Last administered on 07/19/19at 10:22; Start 07/19/19 at 09:00 Multivitamins (Thera M Plus) 1 tab DAILY PO Last administered on 07/19/19at 10:23; Start 07/19/19 at 09:00 Potassium Chloride (Klor-Con) 20 meq BID PO Last administered on 07/19/19at 10:22; Start 07/18/19 at 21:00 Zolpidem Tartrate (Ambien) 5 mg PRN QHS PRN PO INSOMNIA; Start 07/18/19 at 18:45 Gabapentin (Neurontin) 600 mg [id number] PO Last administered on 07/19/19at 06:41; Start 07/18/19 at 18:30 Clonazepam (KlonoPIN) 0.5 mg [id number] PO Last administered on 07/19/19at 06:41; Start 07/18/19 at 18:30 Acetaminophen/ Hydrocodone Bitart (Lortab 5/325) 1 tab PRN Q4HRS PRN PO PAIN; Start 07/18/19 at 22:15 Nystatin (Nystop) 1 shannan BID TP ; Start 07/19/19 at 09:00 Levetiracetam (Keppra) 500 mg BID PO Last administered on 07/19/19at 10:26; Start 07/19/19 at 09:00 Active Scripts Active Reported Clonazepam 1 Mg Tablet 1.5 Tab PO QHS Metolazone 5 Mg Tablet 5 Mg PO DAILY Furosemide 80 Mg Tablet 1 Tab PO DAILY Potassium Chloride 20 Meq Tablet.er 20 Meq PO BID Multivitamins (Multivitamin) 1 Each Tablet 1 Tab PO DAILY Mirtazapine 15 Mg Tablet 7.5 Mg PO QHS Rexulti (Brexpiprazole) 2 Mg Tablet 2 Mg PO DAILY Gabapentin 600 Mg Tablet 1,200 Mg PO HS Gabapentin (Gabapentin) 300 Mg Capsule 600 Mg PO TID Clonazepam (Clonazepam) 0.5 Mg Tablet 1 Tab PO TID Zolpidem Tartrate 5 Mg Tablet 2 Tab PO QHS Allergies Allergies: Coded Allergies: guaifenesin (Verified Allergy, Intermediate, 11/26/15) meperidine (Verified Allergy, Intermediate, 07/26/18) Has tolerated fentanyl ROS Review of System Negative for fever, chills, weight loss, shortness of breath, chest pain, in digestion, hematochezia, melena, and dysuria. Full 14-point review of systems is negative. Physical Exam Physical Examination General: Well-developed, well-nourished white female in no acute distress HEENT: Normocephalic andatraumatic.Temporal arteriespulsatile and nontender. Neck: Supple without bruit, no meningismus Musculoskeletal: Stability:see neurologic. Gait exam:see neurologic. Tone:see neurologic.Strength:see neurologic. Neurological: Mental Status:intact, orientation, memory, attention span/concentration, language, fund of knowledge normal. Cranial Nerves:Pupils equal and reactive to light, extraocular movements areintact, visual vázquez are full to confrontation. Facial sensation is normal. There is no facial asymmetry. Vestibulo-ocular reflex is intact. Palate elevates and tongue protrudes in midline. All other cranial related problems are negative except as mentioned before.Reflexes:2+ and symmetric with flexor plantar responses. Motor:5/5 strength with normal tone and bulk. Coordination:Finger-nose finger and cbjp-[id number] testing are normal. Rapid alternating movements and fine finger movements are intact. Gait:Not tested, normally she gets around with a walker. Sensory:Normal pinprick, vibration, light touch, proprioception. Vitals VITALS Vital Signs Date Time Temp Pulse Resp B/P (MAP) Pulse Ox O2 Delivery O2 Flow Rate FiO2 07/19/19 07:20 98.3 80 18 143/79 (100) 97 Room Air 98.3 Labs Labs Laboratory Tests Test 07/18/19 16:27 07/18/19 16:45 07/18/19 20:10 Urine Collection Type Void Urine Color Zabrina Urine Clarity Cloudy Urine pH 6.0 Urine Specific [place] 1.025 Urine Protein 100 mg/dL (NEG-TRACE) Urine Glucose (UA) Negative mg/dL (NEG) Urine Ketones (Stick) Negative mg/dL (NEG) Urine Blood Large (NEG) Urine Nitrite Positive (NEG) Urine Bilirubin Negative (NEG) Urine Urobilinogen Dipstick 1.0 mg/dL (0.2 mg/dL) Urine Leukocyte Esterase Moderate (NEG) Urine RBC 6-10 /HPF (0-2) Urine WBC 20-40 /HPF (0-4) Urine Squamous Epithelial Cells Few /LPF Urine Bacteria Many /HPF (0-FEW) Urine Hyaline Casts Few /HPF Urine Mucus Slight /LPF Urine Opiates Screen Neg (NEG) Urine Methadone Screen Neg (NEG) Urine Barbiturates Neg (NEG) Urine Phencyclidine Screen Neg (NEG) Urine Amphetamine/Methamphetamine Pos (NEG) Urine Benzodiazepines Screen Neg (NEG) Urine Cocaine Screen Neg (NEG) Urine Cannabinoids Screen Neg (NEG) Urine Ethyl Alcohol Neg (NEG) White Blood Count 9.9 x10^3/uL (4.0-11.0) Red Blood Count 5.62 x10^6/uL (3.50-5.40) Hemoglobin 11.8 g/dL (12.0-15.5) Hematocrit 37.8 % (36.0-47.0) Mean Corpuscular Volume 67 fL (79-100) Mean Corpuscular Hemoglobin 21 pg (25-35) Mean Corpuscular Hemoglobin Concent 31 g/dL (31-37) Red Cell Distribution Width 18.9 % (11.5-14.5) Platelet Count 318 x10^3/uL (140-400) Neutrophils (%) (Auto) 85 % (31-73) Lymphocytes (%) (Auto) 7 % (24-48) Monocytes (%) (Auto) 6 % (0-9) Eosinophils (%) (Auto) 1 % (0-3) Basophils (%) (Auto) 1 % (0-3) Neutrophils # (Auto) 8.4 x10^3/uL (1.8-7.7) Lymphocytes # (Auto) 0.7 x10^3/uL (1.0-4.8) Monocytes # (Auto) 0.6 x10^3/uL (0.0-1.1) Eosinophils # (Auto) 0.1 x10^3/uL (0.0-0.7) Basophils # (Auto) 0.1 x10^3/uL (0.0-0.2) Platelet Estimate Adequate (ADEQUATE) Hypochromasia Mod Poikilocytosis Slight Anisocytosis Slight Microcytosis Marked Ovalocytes Few Stomatocytes Occ Prothrombin Time 14.2 SEC (11.7-14.0) Prothromb Time International Ratio 1.1 (0.8-1.1) Sodium Level 132 mmol/L (136-145) Potassium Level 3.0 mmol/L (3.5-5.1) Chloride Level 99 mmol/L (98-107) Carbon Dioxide Level 20 mmol/L (21-32) Anion Gap 13 (6-14) Blood Urea Nitrogen 14 mg/dL (7-20) Creatinine 0.9 mg/dL (0.6-1.0) Estimated GFR (Cockcroft-Gault) 63.9 BUN/Creatinine Ratio 16 (6-20) Glucose Level 162 mg/dL (70-99) Lactic Acid Level 3.6 mmol/L (0.4-2.0) 0.8 mmol/L (0.4-2.0) Calcium Level 9.5 mg/dL (8.5-10.1) Magnesium Level 2.2 mg/dL (1.8-2.4) Total Bilirubin 0.3 mg/dL (0.2-1.0) Aspartate Amino Transf (AST/SGOT) 32 U/L (15-37) Alanine Aminotransferase (ALT/SGPT) 40 U/L (14-59) Alkaline Phosphatase 175 U/L (46-116) Creatine Kinase 62 U/L (26-192) Troponin I Quantitative < 0.017 ng/mL (0.000-0.055) HP-Gbs-T-Type Natriuretic Peptide 123 pg/mL (0-124) Total Protein 7.5 g/dL (6.4-8.2) Albumin 3.9 g/dL (3.4-5.0) Albumin/Globulin Ratio 1.1 (1.0-1.7) Lipase 238 U/L (73-393) Laboratory Tests Test 07/18/19 16:27 07/18/19 16:45 07/18/19 20:10 Urine Collection Type Void Urine Color Zabrina Urine Clarity Cloudy Urine pH 6.0 Urine Specific [place] 1.025 Urine Protein 100 mg/dL (NEG-TRACE) Urine Glucose (UA) Negative mg/dL (NEG) Urine Ketones (Stick) Negative mg/dL (NEG) Urine Blood Large (NEG) Urine Nitrite Positive (NEG) Urine Bilirubin Negative (NEG) Urine Urobilinogen Dipstick 1.0 mg/dL (0.2 mg/dL) Urine Leukocyte Esterase Moderate (NEG) Urine RBC 6-10 /HPF (0-2) Urine WBC 20-40 /HPF (0-4) Urine Squamous Epithelial Cells Few /LPF Urine Bacteria Many /HPF (0-FEW) Urine Hyaline Casts Few /HPF Urine Mucus Slight /LPF Urine Opiates Screen Neg (NEG) Urine Methadone Screen Neg (NEG) Urine Barbiturates Neg (NEG) Urine Phencyclidine Screen Neg (NEG) Urine Amphetamine/Methamphetamine Pos (NEG) Urine Benzodiazepines Screen Neg (NEG) Urine Cocaine Screen Neg (NEG) Urine Cannabinoids Screen Neg (NEG) Urine Ethyl Alcohol Neg (NEG) White Blood Count 9.9 x10^3/uL (4.0-11.0) Red Blood Count 5.62 x10^6/uL (3.50-5.40) Hemoglobin 11.8 g/dL (12.0-15.5) Hematocrit 37.8 % (36.0-47.0) Mean Corpuscular Volume 67 fL (79-100) Mean Corpuscular Hemoglobin 21 pg (25-35) Mean Corpuscular Hemoglobin Concent 31 g/dL (31-37) Red Cell Distribution Width 18.9 % (11.5-14.5) Platelet Count 318 x10^3/uL (140-400) Neutrophils (%) (Auto) 85 % (31-73) Lymphocytes (%) (Auto) 7 % (24-48) Monocytes (%) (Auto) 6 % (0-9) Eosinophils (%) (Auto) 1 % (0-3) Basophils (%) (Auto) 1 % (0-3) Neutrophils # (Auto) 8.4 x10^3/uL (1.8-7.7) Lymphocytes # (Auto) 0.7 x10^3/uL (1.0-4.8) Monocytes # (Auto) 0.6 x10^3/uL (0.0-1.1) Eosinophils # (Auto) 0.1 x10^3/uL (0.0-0.7) Basophils # (Auto) 0.1 x10^3/uL (0.0-0.2) Platelet Estimate Adequate (ADEQUATE) Hypochromasia Mod Poikilocytosis Slight Anisocytosis Slight Microcytosis Marked Ovalocytes Few Stomatocytes Occ Prothrombin Time 14.2 SEC (11.7-14.0) Prothromb Time International Ratio 1.1 (0.8-1.1) Sodium Level 132 mmol/L (136-145) Potassium Level 3.0 mmol/L (3.5-5.1) Chloride Level 99 mmol/L (98-107) Carbon Dioxide Level 20 mmol/L (21-32) Anion Gap 13 (6-14) Blood Urea Nitrogen 14 mg/dL (7-20) Creatinine 0.9 mg/dL (0.6-1.0) Estimated GFR (Cockcroft-Gault) 63.9 BUN/Creatinine Ratio 16 (6-20) Glucose Level 162 mg/dL (70-99) Lactic Acid Level 3.6 mmol/L (0.4-2.0) 0.8 mmol/L (0.4-2.0) Calcium Level 9.5 mg/dL (8.5-10.1) Magnesium Level 2.2 mg/dL (1.8-2.4) Total Bilirubin 0.3 mg/dL (0.2-1.0) Aspartate Amino Transf (AST/SGOT) 32 U/L (15-37) Alanine Aminotransferase (ALT/SGPT) 40 U/L (14-59) Alkaline Phosphatase 175 U/L (46-116) Creatine Kinase 62 U/L (26-192) Troponin I Quantitative < 0.017 ng/mL (0.000-0.055) PV-Vof-S-Type Natriuretic Peptide 123 pg/mL (0-124) Total Protein 7.5 g/dL (6.4-8.2) Albumin 3.9 g/dL (3.4-5.0) Albumin/Globulin Ratio 1.1 (1.0-1.7) Lipase 238 U/L (73-393) Images Images CT HEAD WO CONTRAST History: Confusion Comparison: None. Technique: Noncontrast CT imaging was performed of the head. Exposure: One or more of the following individualized dose reduction techniques were utilized for this examination: 1. Automated exposure control 2. Adjustment of the mA and/or kV according to patient size 3. Use of iterative reconstruction technique. Findings: There is some motion degradation. No acute extra-axial or parenchymal hemorrhage is identified. There is no significant intra-axial mass effect, midline shift, or extra-axial fluid collection. The woo-white differentiation of the major vascular territories is preserved. There is scattered likely mild ill-defined low-density of the supratentorial parenchyma greatest of the left frontal lobe. The ventricles, sulci, and cisterns are within normal limits in size and configuration. The mastoid air cells and the visualized paranasal sinuses are aerated. No acute calvarial abnormality is identified. Impression: 1. There is no evidence of acute intracranial hemorrhage. There is some scattered ill-defined low-density of the supratentorial parenchyma greatest of the left frontal lobe, nonspecific findings possibly due to chronic microvascular ischemic disease unless there is suspicion for other white matter disease. If there is clinical suspicion for evolving or acute ischemia, follow-up CT or MRI may be beneficial. Assessment/Plan Assessment/Plan Impression: Epilepsy, breakthrough seizure, she has returned to baseline. Chronic orthopedic gait disorder by history Psychiatric disease No other acute neurological issues such as infection or stroke. No bedside examination evidence of neuropathy to explain her chronic leg pain and subjective numbness Recommendations: Strangely, the levetiracetam is not on her home medication list, I did resume it. Levels are usually not helpful. I see no need to repeat MRI the brain or EEG Home later today if she remains stable. Her primary physician can decide if she needs to follow up with neurology. Usually it's a good idea for a neurologist to follow a patient with epilepsy. Thank you for letting me help with the patient's care. AALIYAH MAN MD Jul 19, 2019 11:21
[2019-07-19 11:25] VITALS: BP 146/82
[2019-07-19] MEDS ORDERED: LEVE500T56 PO (11:55)
[2019-07-19] MEDS ORDERED: CEFU500T46 PO (11:57)
--- NOTE | 2019-07-19 12:01 | PDOC3 ---
Discharge Summary Visit Information Date of Admission: Jul 18, 2019 Date of Discharge: Jul 19, 2019 Admitting Diagnosis: Acute encephalopathy Final Diagnosis Problems Medical Problems: (1) Altered level of consciousness Status: Acute (2) Anemia Status: Acute (3) Hypokalemia Status: Acute (4) Hyponatremia Status: Acute (5) Sepsis Status: Acute (6) UTI (urinary tract infection) Status: Acute Brief Hospital Course Allergies Allergies Coded Allergies Type Severity Reaction Last Updated Verified guaifenesin Allergy Intermediate 11/26/15 Yes meperidine Allergy Intermediate 07/26/18 Yes Vital Signs Vital Signs Date Time Temp Pulse Resp B/P (MAP) Pulse Ox O2 Delivery O2 Flow Rate FiO2 07/19/19 11:25 98.2 86 18 146/82 (103) 96 Room Air 98.2 Lab Results Laboratory Tests Test 07/18/19 16:27 07/18/19 16:45 07/18/19 20:10 Urine Collection Type Void Urine Color Zabrina Urine Clarity Cloudy Urine pH 6.0 Urine Specific [place] 1.025 Urine Protein 100 mg/dL (NEG-TRACE) Urine Glucose (UA) Negative mg/dL (NEG) Urine Ketones (Stick) Negative mg/dL (NEG) Urine Blood Large (NEG) Urine Nitrite Positive (NEG) Urine Bilirubin Negative (NEG) Urine Urobilinogen Dipstick 1.0 mg/dL (0.2 mg/dL) Urine Leukocyte Esterase Moderate (NEG) Urine RBC 6-10 /HPF (0-2) Urine WBC 20-40 /HPF (0-4) Urine Squamous Epithelial Cells Few /LPF Urine Bacteria Many /HPF (0-FEW) Urine Hyaline Casts Few /HPF Urine Mucus Slight /LPF Urine Opiates Screen Neg (NEG) Urine Methadone Screen Neg (NEG) Urine Barbiturates Neg (NEG) Urine Phencyclidine Screen Neg (NEG) Urine Amphetamine/Methamphetamine Pos (NEG) Urine Benzodiazepines Screen Neg (NEG) Urine Cocaine Screen Neg (NEG) Urine Cannabinoids Screen Neg (NEG) Urine Ethyl Alcohol Neg (NEG) White Blood Count 9.9 x10^3/uL (4.0-11.0) Red Blood Count 5.62 x10^6/uL (3.50-5.40) Hemoglobin 11.8 g/dL (12.0-15.5) Hematocrit 37.8 % (36.0-47.0) Mean Corpuscular Volume 67 fL (79-100) Mean Corpuscular Hemoglobin 21 pg (25-35) Mean Corpuscular Hemoglobin Concent 31 g/dL (31-37) Red Cell Distribution Width 18.9 % (11.5-14.5) Platelet Count 318 x10^3/uL (140-400) Neutrophils (%) (Auto) 85 % (31-73) Lymphocytes (%) (Auto) 7 % (24-48) Monocytes (%) (Auto) 6 % (0-9) Eosinophils (%) (Auto) 1 % (0-3) Basophils (%) (Auto) 1 % (0-3) Neutrophils # (Auto) 8.4 x10^3/uL (1.8-7.7) Lymphocytes # (Auto) 0.7 x10^3/uL (1.0-4.8) Monocytes # (Auto) 0.6 x10^3/uL (0.0-1.1) Eosinophils # (Auto) 0.1 x10^3/uL (0.0-0.7) Basophils # (Auto) 0.1 x10^3/uL (0.0-0.2) Platelet Estimate Adequate (ADEQUATE) Hypochromasia Mod Poikilocytosis Slight Anisocytosis Slight Microcytosis Marked Ovalocytes Few Stomatocytes Occ Prothrombin Time 14.2 SEC (11.7-14.0) Prothromb Time International Ratio 1.1 (0.8-1.1) Sodium Level 132 mmol/L (136-145) Potassium Level 3.0 mmol/L (3.5-5.1) Chloride Level 99 mmol/L (98-107) Carbon Dioxide Level 20 mmol/L (21-32) Anion Gap 13 (6-14) Blood Urea Nitrogen 14 mg/dL (7-20) Creatinine 0.9 mg/dL (0.6-1.0) Estimated GFR (Cockcroft-Gault) 63.9 BUN/Creatinine Ratio 16 (6-20) Glucose Level 162 mg/dL (70-99) Lactic Acid Level 3.6 mmol/L (0.4-2.0) 0.8 mmol/L (0.4-2.0) Calcium Level 9.5 mg/dL (8.5-10.1) Magnesium Level 2.2 mg/dL (1.8-2.4) Total Bilirubin 0.3 mg/dL (0.2-1.0) Aspartate Amino Transf (AST/SGOT) 32 U/L (15-37) Alanine Aminotransferase (ALT/SGPT) 40 U/L (14-59) Alkaline Phosphatase 175 U/L (46-116) Creatine Kinase 62 U/L (26-192) Troponin I Quantitative < 0.017 ng/mL (0.000-0.055) FC-Auv-N-Type Natriuretic Peptide 123 pg/mL (0-124) Total Protein 7.5 g/dL (6.4-8.2) Albumin 3.9 g/dL (3.4-5.0) Albumin/Globulin Ratio 1.1 (1.0-1.7) Lipase 238 U/L (73-393) Laboratory Tests Test 07/18/19 16:27 07/18/19 16:45 07/18/19 20:10 Urine Collection Type Void Urine Color Zabrina Urine Clarity Cloudy Urine pH 6.0 Urine Specific [place] 1.025 Urine Protein 100 mg/dL (NEG-TRACE) Urine Glucose (UA) Negative mg/dL (NEG) Urine Ketones (Stick) Negative mg/dL (NEG) Urine Blood Large (NEG) Urine Nitrite Positive (NEG) Urine Bilirubin Negative (NEG) Urine Urobilinogen Dipstick 1.0 mg/dL (0.2 mg/dL) Urine Leukocyte Esterase Moderate (NEG) Urine RBC 6-10 /HPF (0-2) Urine WBC 20-40 /HPF (0-4) Urine Squamous Epithelial Cells Few /LPF Urine Bacteria Many /HPF (0-FEW) Urine Hyaline Casts Few /HPF Urine Mucus Slight /LPF Urine Opiates Screen Neg (NEG) Urine Methadone Screen Neg (NEG) Urine Barbiturates Neg (NEG) Urine Phencyclidine Screen Neg (NEG) Urine Amphetamine/Methamphetamine Pos (NEG) Urine Benzodiazepines Screen Neg (NEG) Urine Cocaine Screen Neg (NEG) Urine Cannabinoids Screen Neg (NEG) Urine Ethyl Alcohol Neg (NEG) White Blood Count 9.9 x10^3/uL (4.0-11.0) Red Blood Count 5.62 x10^6/uL (3.50-5.40) Hemoglobin 11.8 g/dL (12.0-15.5) Hematocrit 37.8 % (36.0-47.0) Mean Corpuscular Volume 67 fL (79-100) Mean Corpuscular Hemoglobin 21 pg (25-35) Mean Corpuscular Hemoglobin Concent 31 g/dL (31-37) Red Cell Distribution Width 18.9 % (11.5-14.5) Platelet Count 318 x10^3/uL (140-400) Neutrophils (%) (Auto) 85 % (31-73) Lymphocytes (%) (Auto) 7 % (24-48) Monocytes (%) (Auto) 6 % (0-9) Eosinophils (%) (Auto) 1 % (0-3) Basophils (%) (Auto) 1 % (0-3) Neutrophils # (Auto) 8.4 x10^3/uL (1.8-7.7) Lymphocytes # (Auto) 0.7 x10^3/uL (1.0-4.8) Monocytes # (Auto) 0.6 x10^3/uL (0.0-1.1) Eosinophils # (Auto) 0.1 x10^3/uL (0.0-0.7) Basophils # (Auto) 0.1 x10^3/uL (0.0-0.2) Platelet Estimate Adequate (ADEQUATE) Hypochromasia Mod Poikilocytosis Slight Anisocytosis Slight Microcytosis Marked Ovalocytes Few Stomatocytes Occ Prothrombin Time 14.2 SEC (11.7-14.0) Prothromb Time International Ratio 1.1 (0.8-1.1) Sodium Level 132 mmol/L (136-145) Potassium Level 3.0 mmol/L (3.5-5.1) Chloride Level 99 mmol/L (98-107) Carbon Dioxide Level 20 mmol/L (21-32) Anion Gap 13 (6-14) Blood Urea Nitrogen 14 mg/dL (7-20) Creatinine 0.9 mg/dL (0.6-1.0) Estimated GFR (Cockcroft-Gault) 63.9 BUN/Creatinine Ratio 16 (6-20) Glucose Level 162 mg/dL (70-99) Lactic Acid Level 3.6 mmol/L (0.4-2.0) 0.8 mmol/L (0.4-2.0) Calcium Level 9.5 mg/dL (8.5-10.1) Magnesium Level 2.2 mg/dL (1.8-2.4) Total Bilirubin 0.3 mg/dL (0.2-1.0) Aspartate Amino Transf (AST/SGOT) 32 U/L (15-37) Alanine Aminotransferase (ALT/SGPT) 40 U/L (14-59) Alkaline Phosphatase 175 U/L (46-116) Creatine Kinase 62 U/L (26-192) Troponin I Quantitative < 0.017 ng/mL (0.000-0.055) VD-Hum-Y-Type Natriuretic Peptide 123 pg/mL (0-124) Total Protein 7.5 g/dL (6.4-8.2) Albumin 3.9 g/dL (3.4-5.0) Albumin/Globulin Ratio 1.1 (1.0-1.7) Lipase 238 U/L (73-393) Brief Hospital Course Ms Murray is a 59yo F w/ PMHx seizures, anemia, arthritis, CHF, depression, GI bleed, hypertension, diarrhea, carcinoma of the back, chronic pain who comes with confusion. Found to likely be post-ictal. Did not have keppra on her med list. Seen by neurology, this has been reinstated and over the past 24 hours she has improved. She is asking to go back home with her . Already has a walker at home to get around. No CP or SOB. ASSESSMENT Urinary tract infection Seizures ACUTE metabolic encephalopathy sepsis Epilepsy, breakthrough seizure, she has returned to baseline Chronic orthopedic gait disorder Psychiatric disease CONSULT Neurology - appreciate the help physical therapy - ok home - she refuses home health occupational therapy - ok home - she refuses home health Greater than 30 minutes spent on d/c Discharge Information Condition at Discharge: Improved Follow Up: Weeks (2) Disposition/Orders: D/C to Home Scheduled Brexpiprazole (Rexulti) 2 Mg Tablet, 2 MG PO DAILY, (Reported) Entered as Reported by: NILO MAS on 09/12/17156 Last Action: Converted on 07/18/191824 by FREDI SEALS Cefuroxime Axetil (Cefuroxime) 500 Mg Tablet, 1 TAB PO BID for UTI for 5 Days, #10 Ref 0 Prescribed by: JUSTYNA REED MD on 07/19/19 1157 Clonazepam (Clonazepam ) 0.5 Mg Tablet, 1 TAB PO TID, #30 (Reported) Entered as Reported by: KULWANT CERDA on 03/22/16 1746 Last Action: Continued on 07/18/191824 by NIAL CASTLE Clonazepam (Clonazepam) 1 Mg Tablet, 1.5 TAB PO QHS, #30 (Reported) Entered as Reported by: ALEC MACKAY on 07/25/18 1730 Last Action: Converted on 07/18/191824 by NIAL CASTLE Furosemide (Furosemide) 80 Mg Tablet, 1 TAB PO DAILY, #30 Ref 5 (Reported) Entered as Reported by: ALEC MACKAY on 07/25/181727 Last Action: Continued on 07/18/191824 by NIAL CASTLE Gabapentin (Gabapentin ) 300 Mg Capsule, 600 MG PO TID, (Reported) Entered as Reported by: AVE RIVERO on 02/21/17 1444 Last Action: Continued on 07/18/191824 by NIAL CASTLE Gabapentin (Gabapentin) 600 Mg Tablet, 1,200 MG PO HS, (Reported) Entered as Reported by: NILO MAS on 09/12/17 0157 Last Action: Converted on 07/18/191824 by NIAL CASTLE Levetiracetam (Keppra) 500 Mg Tablet, 500 MG PO BID for Seizures for 30 Days, #60 Ref 1 Prescribed by: JUSTYNA REED MD on 07/19/19 1155 Metolazone (Metolazone) 5 Mg Tablet, 5 MG PO DAILY, #30 Ref 0 (Reported) Entered as Reported by: ALEC MACKAY on 07/25/181727 Last Action: Converted on 07/18/191824 by NIAL CASTLE Mirtazapine (Mirtazapine) 15 Mg Tablet, 7.5 MG PO QHS, (Reported) Entered as Reported by: ALEC MACKAY on 07/25/181727 Last Action: Continued on 07/18/191824 by NIAL CASTLE Multivitamin (Multivitamins) 1 Each Tablet, 1 TAB PO DAILY, #90 Ref 3 (Reported) Entered as Reported by: ALEC MACKAY on 07/25/181727 Last Action: Converted on 07/18/191824 by NIAL CASTLE Potassium Chloride (Potassium Chloride) 20 Meq Tablet.er, 20 MEQ PO BID, (Reported) Entered as Reported by: ALEC MACKAY on 07/25/18 1728 Last Action: Converted on 07/18/191824 by FREDI SEALS Zolpidem Tartrate (Zolpidem Tartrate) 5 Mg Tablet, 2 TAB PO QHS, #30 Ref 2 (Reported) Entered as Reported by: DIMITRI RODRIGUEZ on 10/31/14 1341 Last Action: Continued on 07/18/191824 by JUSTYNA COCHRAN MD Jul 19, 2019 12:01
--- NOTE | 2019-07-19 13:20 | NUR ---
Discharge Note: WILY CALDERON [address] [place] [address] Discharge instructions and discharge home medications reviewed with Patient and a copy given. All questions have been answered and understanding verbalized. The following instructions and handouts were given: FOLLOW UP INSTRUCTIONS, ACTIVITY LEVELS, AND MEDICATION LISTS. Discontinued lines and drains: Peripheral IV DISCONTINUED AND CATHETER intact. Patient discharged to Home or Self Care with FAMILY MEMBER via Wheelchair.
== END 2019-07-19 13:20 | disposition home or self-care (01) | DRG 871 ==
LOC: ER 16:13 → 6 SOUTH 17:45
PROVIDERS: ADMIT Internal Medicine; ATTEND Internal Medicine
DX: A41.9 Sepsis, unspecified organism (principal); G93.41 Metabolic encephalopathy; E87.1 Hypo-osmolality and hyponatremia; N39.0 Urinary tract infection, site not specified; E87.2 Acidosis; D64.9 Anemia, unspecified; E87.6 Hypokalemia; G40.909 Epilepsy, unspecified, not intractable, without status epilepticus; G89.29 Other chronic pain; I11.0 Hypertensive heart disease with heart failure; I50.9 Heart failure, unspecified; I25.10 Atherosclerotic heart disease of native coronary artery without angina pectoris; F32.9 Major depressive disorder, single episode, unspecified; F41.9 Anxiety disorder, unspecified; K21.0 Gastro-esophageal reflux disease with esophagitis; M19.90 Unspecified osteoarthritis, unspecified site; M54.9 Dorsalgia, unspecified; Z82.49 Family history of ischemic heart disease and other diseases of the circulatory system; Z88.8 Allergy status to other drugs, medicaments and biological substances; Z90.49 Acquired absence of other specified parts of digestive tract
CPT/HCPCS: 36415; 70450; 71045; 80053; 80307; 81001; 82550; 83605; 83690; 83735; 83880; 84484; 85025; 85610; 87040; 87077; 87086; 87186; 87205; 93005; 96361; 96374; 96375; J0696; J1885; J7030; 99291-25; G0378